=== PATIENT | female | born 1935 | race Caucasian/White ===

== ENCOUNTER 2018-03-12 13:12 | Inpatient (IN) ==
--- NOTE | 2018-03-12 14:14 | Diag Imaging Result Doc PS360 ---
EXAM: XRAY HIP W/PELVIS BILAT 3-4VWS - 03/12/2018 HISTORY: s/p fall TECHNIQUE: Portable bilateral hips and pelvis two views COMPARISON: None. FINDINGS: There is no fracture or dislocation identified. There are lower lumbar spine degenerative changes noted. IMPRESSION: No evidence of fracture or dislocation. Electronically signed by Sean Lagunas 03/12/2018 2:12 PM
--- NOTE | 2018-03-12 14:17 | Diag Imaging Result Doc PS360 ---
EXAM: CHEST-1 VIEW - 03/12/2018 HISTORY: chronic cough TECHNIQUE: Portable chest COMPARISON: 10/24/2017 FINDINGS: Heart size appears upper normal and stable. There is chronic infiltrate or scarring at the left base. The remainder of the lungs appear essentially clear. There is no substantial pleural effusion or pneumothorax identified. IMPRESSION: Chronic infiltrate or scarring at left base similar to prior. Electronically signed by Sean Lagunas 03/12/2018 2:14 PM
[2018-03-12 15:16] LABS: EOS# 0.01 X1000 (0.0-0.7); EOS% 0.1 % (0.0-10.0); HEMATOCRIT 30.1 % (37.0-47.0); HEMOGLOBIN 10.1 g/dL (12.0-16.0); IMM GRAN# 0.04 X1000 (0.0-0.04); IMM GRAN% 0.4 % (0.0-0.5); LYMPH% 23.5 % (20.5-51.1); MCH 28.5 PG (27-31); MCHC 33.6 g/dL (33-37); MCV 84.8 FL (81-99); MONO# 0.57 X1000 (0.11-0.59); MONO% 6.4 % (1.7-9.3); NEUT# 6.21 X1000 (1.4-6.5); NEUT% 69.6 % (42.2-75.2); PLT 248 X1000 (130-400); RBC 3.55 XMIL (4.2-5.4); RDW 14.1 % (11.5-14.5); WBC 8.93 X1000 (4.8-10.8)
[2018-03-12 15:34] LABS: ESTIMATED GFR > 60
[2018-03-12 15:36] LABS: AGAP 12; ALB/GLOB RATIO 1.7; ALBUMIN 3.8 g/dL (3.5-5.0); ALKALINE PHOSPHATASE 118 U/L (32-104); BUN 8 mg/dL (8-22); CALCIUM 8.3 mg/dL (8.8-10.2); CHLORIDE 83 mmol/L (98-107); COSMO 243; CREATININE 0.5 mg/dL (0.5-0.9); GLUCOSE 108 mg/dL (70-104); GOT 13 U/L (10-30); GPT 15 U/L (10-36); POTASSIUM 4.2 mmol/L (3.5-5.1); SODIUM 121 mmol/L (136-145); TCO2 26 mmol/L (25-35); TOTAL BILIRUBIN 0.47 mg/dL (0.20-1.00); TOTAL PROTEIN 6.1 g/dL (6.3-8.3)
--- NOTE | 2018-03-12 16:51 | PROVIDER DOCUMENTATION ---
This chart was entered by Marlyn Ivy Scribe, acting as scribe for Caity Mills MD. HPI-General Adult - General Chief Complaint: Fall Stated Complaint: fall, mid back pain Time Seen by Provider: 03/12/18 13:31 Source: patient Allergies/Adverse Reactions: Patient Allergies Allergy/AdvReac Type Severity Reaction Status Date / Time Sulfa (Sulfonamide Allergy NAUSEA/VOMI Verified 08/09/14 14:26 Antibiotics) TING Home Medications: Home Medication List Medication Instructions Recorded Confirmed Last Taken Type Albuterol Sulfate 2.5 mg IH BID 08/09/14 08/09/14 08/09/14 History Amlodipine Besylate 5 mg PO DAILY 08/09/14 08/09/14 08/09/14 History Aspirin 81 mg PO DAILY 08/09/14 08/09/14 08/09/14 History Calcium Carbonate/Vitamin D3 1 each PO DAILY 08/09/14 08/09/14 08/09/14 History [Calcium 600 + D Tablet] Cholecalciferol (Vitamin D3) 400 unit PO DAILY 08/09/14 08/09/14 08/09/14 History [Vitamin D] Docusate Sodium [Colace] 100 mg PO 4XDAY #20 capsule 08/09/14 Unknown Rx Hydrochlorothiazide 12.5 mg PO DAILY 08/09/14 08/09/14 08/09/14 History Lorazepam 1 mg PO DAILY 08/09/14 08/09/14 08/06/14 History Losartan [Cozaar] 100 mg PO DAILY 08/09/14 08/09/14 08/09/14 History Magnesium Citrate [Citrate of 300 ml PO ONCE #1 bottle 08/09/14 Unknown Rx Magnesia] Meloxicam 15 mg PO DAILY 08/09/14 08/09/14 08/09/14 History Nitrofurantoin Bonner/Macrocryst 100 mg PO BID #9 capsule 08/09/14 Unknown Rx [Macrobid] Ondansetron [Zofran] 4 mg PO Q6H PRN PRN #10 tablet 08/09/14 Unknown Rx Pantoprazole [Protonix] 40 mg PO DAILY@0700 08/09/14 08/09/14 08/08/14 History Potassium 595 mg PO DAILY 08/09/14 08/09/14 08/09/14 History - History of Present Illness -Gen Adult Nature of Presenting Problems: 82yof c/o head pain, back pain, weakness, and multiple falls in the last week. She additionally reports weight loss, decreased appetite, and cough for 3 months. She reports she slipped on her bed Tuesday and hit her head and back. She denies loc. She reports she fell this afternoon. She reports she cannot stand up. She denies fever, chills, nausea, vomiting, diarrhea, cp, and sob. The patient's son is at bedside. Location of Pain/Injury: reports: head, back, generalized (weakness) Pain Radiation: reports: no radiation Quality of Pain: reports: aching, other ("weakness") Severity: reports: mild Onset/Duration: reports: this afternoon, other (3 months) Timing: reports: still present, intermittent, constant Context/Activities at Onset: reports: none Modifying Factors: improves with: nothing Associated Symptoms: denies: chest pain, fever/chills, nausea, shortness of breath, vomiting Similar Symptoms Previously?: No Recently seen or treated by another doctor?: No Review of Systems - Adult - REVIEW OF SYSTEMS - ADULT Constitutional: denies: chills, fever Eyes: denies: discharge, dry eyes Ears, Nose, Mouth & Throat: denies: ear discharge, ear pain Cardiovascular: denies: chest pain, palpitations Respiratory: denies: cough, shortness of breath Gastrointestinal: denies: abdominal pain, diarrhea, nausea, vomiting Genitourinary: denies: dysuria, hematuria Musculoskeletal: reports: back pain, other (generalized weakness). denies: neck pain Integumentary: reports: no symptoms reported Neurological: reports: other (head pain). denies: dizziness/vertigo Psychiatric: reports: no symptoms reported Endocrine: reports: no symptoms reported Hematologic/Lymphatic: reports: no symptoms reported Allergic/Immunologic: reports: no symptoms reported All Other Systems: Reviewed and Negative Past History - Adult - PAST MEDICAL HISTORY-ADULT Review of Records: reports: Old Records Reviewed, Nursing Assessment Review, Medications Reviewed Major Childhood Illnesses: reports: denies history Cardiovascular: reports: HTN Respiratory: reports: denies history Gastrointestinal: reports: GERD Obstetrical/Gynecological: reports: denies history Genitourinary: reports: denies history Musculoskeletal: reports: denies history Neurological: reports: denies history Endocrine/Immune: reports: denies history Other Conditions: reports: denies history - PRIOR SURGERIES/PROCEDURES Surgical/Procedure History: reports: hysterectomy - IMMUNIZATION STATUS Childhood Immunizations: See Nurse Assessment Flu Vaccine: See Nurse Assessment - FAMILY HISTORY Family History: reviewed, not pertinent - SOCIAL HISTORY Smoking: other (former) Substance Use: denies Living Situation: family Physical Exam-General - PHYSICAL EXAM-ADULT Initial Vital Signs Reviewed: Yes - CONSTITUTIONAL General Appearance: alert, no apparent distress - EYES Eyes: PERRL/EOMI, pink conjunctivae - HEAD, EARS, NOSE, MOUTH & THROAT HENMT: other (Head exam: mild tenderness to occipital area, no active bleeding, no hematoma, no Calix's sign, no ecchymosis, no swelling. Pt has swollen throat ) - NECK Neck: non-tender, supple - RESPIRATORY Respiratory: lungs clear, normal breath sounds - CARDIOVASCULAR Cardiovascular: regular rate, rhythm, no murmur - GASTROINTESTINAL (ABDOMEN) Abdominal Exam: non tender, soft - MUSCULOSKELETAL Extremity: normal range of motion, non-tender, normal inspection, no pedal edema - SKIN Integumentary: normal color, warm/dry. negative: ecchymosis, erythema, swelling - NEUROLOGIC Neurologic: grossly normal, no motor/sensory deficits - PSYCHIATRIC Psych/Mental Status: normal mood/affect, normal thought content, normal thought process, oriented x 3 Progress - PLAN OF CARE/RESULTS Progress/Plan/Lab Results: Vital Signs - 8 hr 03/12/18 13:22 Temperature 98.2 F Pulse Rate 79 Respiratory Rate 18 Blood Pressure 138/51 O2 Sat by Pulse Oximetry 99 Orders Category Date Time Status XRAY HIP W/PELVIS BILAT 3-4VWS [RAD] Stat Exams 03/12/18 13:54 Completed cxr [CHEST-1 VIEW] [RAD] Stat Exams 03/12/18 13:52 Completed CBC WITH ELECTRONIC DIFF [HEME] Stat Lab 03/12/18 13:55 Uncollected CMP [COMPREHENSIVE METABOLIC PANEL] [CHEM] Stat Lab 03/12/18 13:55 Uncollected Result Diagrams: 03/12/18 14:48 03/12/18 14:48 - XRAY 1 XRAY Study: Chest Impression: Abnormal (FINDINGS: Heart size appears upper normal and stable. There is chronic infiltrate or scarring at the left base. The remainder of the lungs appear essentially clear. There is no substantial pleural effusion or pneumothorax identified. IMPRESSION: Chronic infiltrate or scarring at left base similar to prior.) 2 XRAY Study: Pelvis, Hip Impression: Abnormal ( FINDINGS: There is no fracture or dislocation identified. There are lower lumbar spine degenerative changes noted. IMPRESSION: No evidence of fracture or dislocation.) - CONSULTS/PCP/HOSPITALIST Notification #1 *Consult/PCP/Hospitalist*: dr. Brower Time Discussed: 16:50 Consult Disposition: Admit Departure - Departure Date of Disposition Decision: 03/12/18 Time of Disposition Decision: 16:50 DIAGNOSIS: Hyponatremia, Status post fall, Weakness Disposition: ADMITTED INPATIENT 09 Certified Medical Emergency: Emergent Condition: Stable Additional Freetext Instructions: ED Follow Up Instructions: You have been treated by a care provider in the Emergency Department. These instructions are being provided to you so you can have an understanding of how to care for yourself upon discharge. Upon discharge from the Emergency Department, you are responsible for making arrangements for follow-up care by a physician of your choice. Take all prescribed medications as directed. Return to the Emergency Department immediately for any new or worsening symptoms. You may call the Physician Referral phone number at [phone] to obtain a list of Physicians who are taking new patients. Referrals and Follow-Ups: Susan Brower MD [Primary Care Provider] - Discharge Education: Fall Prevention in the Home, [id number] - Critical Care Note This patient required my direct & personal management of CC.: No Attestation - Physician/ BEENA Attestation Patient care was provided by Advanced Practice Provider:: No The physician spent face to face time with patient:: Yes Advanced Practice Provider documentation review:: Supervising physician onsite and consulted in the evaluation and care of this patient. The physician did have a face to face encounter with the patient. This chart was documented by the indicated scribe, (Marlyn Ivy, Adriana) and accurately reflects the services I performed and decisions made by me, Caity Mills MD, as attested by the provider's signature.
[2018-03-12] MEDS: NS 1,000 ML IV SCH (18:59)
[2018-03-12] MEDS: LOVENOX SUBQ SCH (18:59)
[2018-03-12] MEDS: ROCEPHIN 1 GM in NS 50 ML IV SCH (18:59)
[2018-03-12] MEDS ORDERED: SODIUM CHLORIDE 0.9% INJ PRN (18:59)
[2018-03-12] MEDS ORDERED: SAMSCA PO ONE (18:59)
[2018-03-12] MEDS ORDERED: PHENERGAN IV PRN (18:59)
[2018-03-12] MEDS: DUONEB (A & A) INH SCH (21:10)
[2018-03-13] MEDS: DUONEB (A & A) INH SCH ×4 (03:10→22:00)
[2018-03-13] MEDS ORDERED: CORTROSYN IV ONE (05:30)
[2018-03-13 07:04] LABS: AGAP 12; BUN 7 mg/dL (8-22); CALCIUM 8.7 mg/dL (8.8-10.2); CHLORIDE 94 mmol/L (98-107); COSMO 260; CREATININE 0.5 mg/dL (0.5-0.9); ESTIMATED GFR > 60; GLUCOSE 129 mg/dL (70-104); POTASSIUM 3.8 mmol/L (3.5-5.1); SODIUM 130 mmol/L (136-145); TCO2 24 mmol/L (25-35)
--- NOTE | 2018-03-13 08:14 | PROGRESS NOTE ---
DATE: 03/13/2018 SUBJECTIVE: Ms. Logan has a history of recurrent head and neck cancer, and is currently undergoing chemotherapy and adjuvant radiation therapy. 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 She presented to the ER with general lethargy, malaise, and weakness. On admission, her serum sodium was 121. I spoke to Dr. Foster and she had a serum sodium of 131 earlier in the week. 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 We also performed a Cortrosyn stimulation test, which was abnormal. She continues with a persistent cough which is at times productive of yellowish sputum. She has some occasional wheezing with forced expiration. She does have bronchiectasis. A chest x-ray demonstrated chronic fibrotic changes. Her blood pressure is stable. OBJECTIVE: Vital Signs: Today, her blood pressure was 146/72. Temperature 97.8 degrees, pulse 85, respirations 19. Cardiovascular: Regular rate and rhythm. Lungs: Occasional end-expiratory wheezing with forced expiration. Abdomen: Soft and nontender with active bowel sounds. Extremities: Without edema. Skin: No palpable purpura. ASSESSMENT AND PLAN: 1. Hyponatremia, present on admission. 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 Her serum sodium has increased from 121 to 130. I will not re-dose was Samsca this morning. I will recheck a BMP in the morning. 2. Adrenal insufficiency. I will begin Cortef 10 mg b.i.d. 3. Acute exacerbation of the underlying bronchiectasis. I will treat her with levofloxacin 500 mg daily and continue DuoNeb nebulizer treatments. 4. General debility. She has fallen several times and is unable to walk. X-rays of the pelvis and hips yesterday were normal. I am concerned about the possibility of insufficiency fractures of the pelvis, which would not necessarily be picked up on a plain film. I will obtain a CT scan of the abdomen and pelvis to look for fractures today. cc: Rupert Brower MD
[2018-03-13] MEDS: NS 1,000 ML IV SCH ×2 (09:38→23:19)
[2018-03-13] MEDS: ASPIRIN PO SCH (09:38)
--- NOTE | 2018-03-13 09:38 | HISTORY AND PHYSICAL ---
HISTORY OF PRESENT ILLNESS: Ms. Jyoti Logan is an 82-year-old lady with a history of recurrent head and neck cancer, currently undergoing chemotherapy and adjuvant radiation, essential hypertension, gastroesophageal reflux disease, overactive bladder, and bronchiectasis, who is well known to me. Her family reports that she has had a persistent nonproductive cough, which at times is productive of yellowish sputum, pleuritic chest pain, and increasing shortness of breath. She does have a history of bronchiectasis. Her chest x-ray showed fibrotic changes with a possible infiltrate in the left lower lung field. She is also very weak. She is unable to make transfers from her bed to her chair without assistance. She has fallen several times over the past several days. Laboratory studies demonstrated a serum sodium of 121. I spoke to Dr. Foster, who had ordered blood work earlier in the week, and at that time her serum sodium was 131. She has been more lethargic, but has had no obvious seizure activity. Dr. Foster also mentioned that her cortisol level was low. She was with complaint of increasing reflux, sour brash and nausea with meals. She has a lot of pain with swallowing and chewing. She has had a previous EGD, which demonstrated no strictures or esophagitis. PAST MEDICAL HISTORY: As above. PAST SURGICAL HISTORY: Hysterectomy with a unilateral oophorectomy, bilateral tympanostomy tubes. ALLERGIES: Sulfa drugs. FAMILY HISTORY: Her father had hypertension and of a ruptured abdominal aortic aneurysm at age 78. Her mother had hypertension and diabetes and at the age of 91. SOCIAL HISTORY: She is a . She is a former smoker. She does not consume alcoholic beverages. MEDICATIONS: Lasix 20 mg daily, losartan 100 mg daily, pantoprazole 40 mg daily, Paxil 10 mg daily, Lorazepam 1 mg at night, ferrous sulfate 325 mg daily, amlodipine 10 mg daily. REVIEW OF SYSTEMS: Weight: She has lost weight. HEENT: She wears glasses. Cardiovascular: No chest pain, palpitations, or anginal equivalents. Pulmonary: No shortness of breath, PND, orthopnea. Gastrointestinal: See HPI. Endocrine: No polyuria, no polydipsia. No cold or heat intolerance. Skin: No easy bruisability. Genitourinary: No leakage of urine with coughing or laughing. Neurologic: No migraines or seizures. PHYSICAL EXAMINATION: GENERAL: This is a chronically ill-appearing, 82-year-old lady in no apparent distress. VITAL SIGNS: She is afebrile. Her vital signs are stable. HEENT: Fundi with arteriolar wall thickening. Pupils equal, round, reactive to light. Extraocular eye movements intact. TMs without bullae. NECK: Supple. No masses, JVD or bruits CARDIOVASCULAR: Regular rate and rhythm. LUNGS: Scattered end expiratory wheezing with forced expiration with faint crackles in the left base. ABDOMEN: Soft, nontender, with active bowel sounds. No hepatosplenomegaly. No abdominal bruits. EXTREMITIES: Without edema. NEUROLOGIC: She is oriented to name, place, and time. Cranial nerves 2 through 12 intact grossly. She has good strength in the upper and lower extremities. Tongue is midline. ASSESSMENT AND PLAN: 1. Hyponatremia. 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 We will check urine and serum osmolality, as well as urine sodium. I will give her a dose of Samsca 30 mg x1 dose and recheck a basic metabolic panel in the morning. 2. Low cortisol. A low cortisol level can cause generalized fatigued and malaise. I will arrange for a Cortrosyn stimulation test in the morning. 3. Acute exacerbation of underlying bronchiectasis. I will treat her with Levaquin 500 mg daily and DuoNeb nebulizer treatments. 4. Hypertension. Her blood pressure is stable. We will continue her current regimen of medications. Given her comorbid conditions and clinical presentation, I believe admission to the hospital is necessary. Hyponatremia will predispose her to seizure activity. I anticipate that she will be in the hospital for at least 2 midnights, and I will therefore place her in inpatient status. We will begin Lovenox 40 mg subcutaneously daily for deep vein thrombosis prophylaxis. cc: Rupert Brower MD
[2018-03-13] MEDS: ATIVAN PO SCH (09:39)
[2018-03-13] MEDS: CORTEF PO SCH ×2 (09:40→23:20)
[2018-03-13] MEDS: CALTRATE PLUS TABLET PO SCH (09:40)
[2018-03-13] MEDS: COZAAR PO SCH (09:41)
[2018-03-13] MEDS: NORVASC PO SCH (09:41)
[2018-03-13] MEDS: VITAMIN D PO SCH (09:42)
[2018-03-13] MEDS: LEVAQUIN PO SCH (09:48)
--- NOTE | 2018-03-13 09:56 | Diag Imaging Result Doc PS360 ---
EXAM: CT ABDOMEN/PELVIS W/WO CONTRAS 03/13/2018 HISTORY: pelvic pain following fall, r o insufficiemncy fra TECHNIQUE: This exam was performed using automated exposure control, adjustment of mA or kV according to patient size, and/or use of iterative reconstruction technique. COMMENT: There is some interstitial opacity in the subpleural zones of both lung bases. There is opacity in the inferior right middle lobe associated with some bronchiectasis. These findings were also present at the time the previous study of 08/24/2011 and may be related to interstitial fibrosis. There is perinephric stranding bilaterally. There is no evidence of hydronephrosis or nephrolithiasis. There are no apparent gallstones. There is cardiomegaly with left ventricular enlargement. The aorta is not distended. The mesenteric and renal arteries are patent. There are granulomata in the spleen. The spleen is not enlarged. The liver is unremarkable. There are multiple cortical cysts in both kidneys. The appendix is normal in caliber. There is no evidence of bowel obstruction. Pelvis: There is diverticulosis in the distal descending and sigmoid colon without evidence of diverticulitis. The urinary bladder is not distended. There has been hysterectomy. There are no masses. The bony pelvis appears to be intact. There is some degenerative change in the symphysis pubis. There are degenerative disc changes in the lumbar spine and there is apparent mild spinal stenosis at the L4-5 level. IMPRESSION: Possible chronic interstitial lung disease. No evidence of acute intra-abdominal or pelvic disease. Electronically signed by Luis Manuel Meraz 03/13/2018 9:53 AM
[2018-03-13] MEDS: MYCOSTATIN SUSP PO SCH ×4 (11:57→22:59)
[2018-03-13] MEDS: ROCEPHIN 1 GM in NS 50 ML IV SCH (18:47)
[2018-03-13] MEDS: LOVENOX SUBQ SCH (18:47)
[2018-03-14] MEDS: DUONEB (A & A) INH SCH ×4 (03:55→21:02)
[2018-03-14 07:24] LABS: EOS# 0.04 X1000 (0.0-0.7); EOS% 0.7 % (0.0-10.0); HEMATOCRIT 26.9 % (37.0-47.0); HEMOGLOBIN 8.6 g/dL (12.0-16.0); IMM GRAN# 0.02 X1000 (0.0-0.04); IMM GRAN% 0.4 % (0.0-0.5); LYMPH# 1.83 X1000 (1.2-3.4); LYMPH% 32.1 % (20.5-51.1); MCH 28.3 PG (27-31); MCV 88.5 FL (81-99); MONO# 0.75 X1000 (0.11-0.59); MONO% 13.2 % (1.7-9.3); NEUT# 3.06 X1000 (1.4-6.5); NEUT% 53.6 % (42.2-75.2); PLT 231 X1000 (130-400); RBC 3.04 XMIL (4.2-5.4)
[2018-03-14 07:43] LABS: AGAP 10; BUN 5 mg/dL (8-22); CALCIUM 8.4 mg/dL (8.8-10.2); CHLORIDE 100 mmol/L (98-107); COSMO 266; CREATININE 0.5 mg/dL (0.5-0.9); ESTIMATED GFR > 60; GLUCOSE 112 mg/dL (70-104); POTASSIUM 3.8 mmol/L (3.5-5.1); SODIUM 134 mmol/L (136-145); TCO2 24 mmol/L (25-35)
[2018-03-14] MEDS: ATIVAN PO SCH (08:28)
[2018-03-14] MEDS: LEVAQUIN PO SCH (08:28)
[2018-03-14] MEDS: NORVASC PO SCH (08:28)
[2018-03-14] MEDS: COZAAR PO SCH (08:28)
[2018-03-14] MEDS: CORTEF PO SCH ×2 (08:28→20:23)
[2018-03-14] MEDS: ASPIRIN PO SCH (08:29)
[2018-03-14] MEDS: VITAMIN D PO SCH (08:30)
--- NOTE | 2018-03-14 08:52 | PROGRESS NOTE ---
DATE: 03/14/2018 SUBJECTIVE: Mrs. Logan was admitted to [facility] with hyponatremia. 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 She has been given a one time dose of Samsca. Her serum sodium was 121 on admission. Her serum sodium was 134 this morning. Blood pressure is generally stable. Systolic blood pressures have been in the 140s and 150s, where as her diastolic blood pressures have been in the 70s and 80s. She also had an acute exacerbation of her underlying bronchiectasis. She continues with a cough, but the cough is largely nonproductive. Initially, the cough was productive of yellowish sputum. She continues with dysphagia to solids. She had a normal EGD 2 months ago. OBJECTIVE: Temperature 98.1, pulse 79, respirations 20, BP 157/43. CV: Regular rate and rhythm. Lungs: Faint crackles in the bases bilaterally. Abdomen soft, nontender, with active bowel sounds. ASSESSMENT AND PLAN: 1. Acute exacerbation of underlying bronchiectasis. We will continue oral Levaquin, supplemental O2, and DuoNeb nebulizer treatments. I will recheck a portable chest x-ray today. 2. Hyponatremia secondary to SIADH. We will continue to monitor her serum sodium. As her serum sodium has normalized to 134, I do not believe that she needs additional Samsca at this time. 3. Dysphagia. She had a normal EGD 2 months ago. We will arrange for a modified barium swallow. cc: Rupert Brower MD
--- NOTE | 2018-03-14 08:59 | Diag Imaging Result Doc PS360 ---
CHEST-PORTABLE - 03/14/2018 INDICATION: BRONCHIECTASIS COMPARISON: 03/12/2018 FINDINGS: Stable cardiomegaly. Stable hazy infiltrate in the left lung base mainly in the left lower lobe. There is probably near complete collapse of the right middle lobe. No pneumothorax or large pleural effusion. IMPRESSION: Essentially complete collapse of the right middle lobe. Stable hazy infiltrate in the right lung base. Stable cardiomegaly. Electronically signed by Willy Krishnamurthy 03/14/2018 8:57 AM
[2018-03-14] MEDS: MYCOSTATIN SUSP PO SCH ×4 (10:56→22:11)
[2018-03-14] MEDS: CALTRATE PLUS TABLET PO SCH (10:58)
--- NOTE | 2018-03-14 11:46 | Diag Imaging Result Doc PS360 ---
EXAM: BA SWALLOW W/VIDEO SPEECH THER INDICATION: DYSPHAGIA TECHNIQUE: COMPARISON: Full barium swallow dated 11/22/2017 FINDINGS: Upon swallowing the thin liquid barium, there was penetration but did not extend below the vocal folds. No libby aspiration was appreciated. The cricopharyngeus spasm seen on the previous standard barium esophagram was not appreciated on this study. Limited views of the lower esophagus are grossly unremarkable. IMPRESSION: 1.Penetration of thin liquid barium upon swallowing but no libby aspiration is appreciated. 2.Please see speech pathology report for full details. Electronically signed by Angel Díaz 03/14/2018 11:44 AM
[2018-03-14] MEDS: NS 1,000 ML IV SCH ×2 (14:57→15:10)
[2018-03-14] MEDS: ZOSYN 3.375 GM in NS 50 ML IV SCH ×2 (15:01→20:23)
[2018-03-14] MEDS: ROCEPHIN 1 GM in NS 50 ML IV SCH (18:23)
[2018-03-14] MEDS: LOVENOX SUBQ SCH (18:23)
--- NOTE | 2018-03-14 20:38 | PULMONOLOGY CONSULTATION ---
DATE: 03/14/2018 REQUESTING PHYSICIAN: Dr. Luis Alfredo Brower. REASON FOR CONSULTATION: Collapse of the right middle lobe. HISTORY OF PRESENT ILLNESS: Ms Logan is an 82-year-old white female with a 30 pack-year history for tobacco who is followed in my clinic for bronchiectasis and scarring at the left lung base. The patient developed swallowing difficulty and was evaluated by ENT in [place] and she was referred to Dr. Tellez at [facility]. 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 Biopsies revealed squamous cell carcinoma. The patient has been initiated on concurrent chemotherapy. She is currently in the middle of radiation treatments. She developed significant weakness and presented to the emergency room 2 days ago. She was found to be significantly hyponatremic. The patient underwent a modified barium swallow yesterday which revealed penetration of thin liquid upon swallowing, but no overt aspiration. Chest x-ray today revealed collapse/atelectasis of the right middle lobe. The patient reports she is having some difficulty with swallowing. Her voice is extremely course/hoarse compared to her prior visit in my office. OBJECTIVE: The patient has been afebrile for the last 24 hours. Blood pressure 157/43, heart rate 71, respiratory rate 18, oxygen saturation 92%. HEENT: Pupils are equal, reactive. Oropharynx is clear. Neck: Is supple. Chest: Reveals diminished breath sounds right base but breath sounds are present. Cardiac: S1-S2. Abdomen: Soft and without hepatosplenomegaly. Extremities: Without edema. LABORATORIES: CT scan of the abdomen and pelvis reveals some increased interstitial markings in the lung bases which have been present for several years. No overt collapse on CT scan 03/13/2018. Chest x-ray today does reveal atelectasis of the right middle lobe. Sodium 139 , potassium 3.8, chloride 100, bicarbonate 24, BUN 5, creatinine 0.5. White blood count 5.7, hemoglobin 8.6, platelet count 231,000. IMPRESSION: 82-year-old with atelectasis, exacerbation of bronchiectasis, hoarseness, hyponatremia, with dysphagia while undergoing radiation therapy. The patient currently is doing marginal with swallowing but if has progressive difficulty she might benefit from a percutaneous endoscopic gastrostomy tube placement while she is completing her radiation treatments. RECOMMENDATIONS: 1. Agree with broad-spectrum antibiotics. Will simplify regimen and discontinue ceftriaxone since she is on piperacillin and Levaquin. 2. Encourage patient to use incentive spirometer. 3. Chest x-ray tomorrow. 4. Consider PEG tube pending clinical course. This was briefly discussed with the patient. cc: MD Rupert Ovalle MD [facility] CHIL[facility]'S HOSPITALFernandez
[2018-03-15] MEDS: NS 1,000 ML IV SCH (00:43)
[2018-03-15] MEDS ORDERED: LASIX IV ONE ×2 (02:34→08:34)
[2018-03-15] MEDS: ZOSYN 3.375 GM in NS 50 ML IV SCH ×4 (03:07→21:02)
[2018-03-15] MEDS: DUONEB (A & A) INH SCH ×4 (03:15→21:05)
[2018-03-15] MEDS: PROTONIX PO SCH (06:20)
[2018-03-15 06:57] LABS: AGAP 14; BUN 7 mg/dL (8-22); CALCIUM 9.1 mg/dL (8.8-10.2); CHLORIDE 94 mmol/L (98-107); COSMO 266; CREATININE 0.7 mg/dL (0.5-0.9); ESTIMATED GFR > 60; GLUCOSE 137 mg/dL (70-104); POTASSIUM 3.7 mmol/L (3.5-5.1); SODIUM 133 mmol/L (136-145); TCO2 25 mmol/L (25-35)
--- NOTE | 2018-03-15 07:53 | Diag Imaging Result Doc PS360 ---
EXAM: CHEST-2 VIEWS 03/15/2018 HISTORY: abnormal exam TECHNIQUE: PA and lateral chest COMMENT: There is diffuse alveolar and interstitial opacity primarily posteriorly in both lower lobes and adjacent upper lobes. There is opacification and obscuration over the left base of the left heart border and diaphragm. This is worse than on 10/24/2017. IMPRESSION: Pulmonary edema and/or pneumonia. Electronically signed by Luis Manuel Meraz 03/15/2018 7:52 AM
[2018-03-15] MEDS ORDERED: SALINE LOCK IV FLUID XX ONE (08:39)
--- NOTE | 2018-03-15 08:56 | PROGRESS NOTE ---
DATE: 03/15/2018 SUBJECTIVE: Ms. Logan has a history of bronchiectasis. She continues with a persistent cough productive of yellowish sputum, and shortness of breath. Chest x-ray showed collapse of the right middle lobe. She is on broad-spectrum antibiotics, including Zosyn and Levaquin. Her chest x-ray this morning looked worse. There is opacification of the left base of the left heart border and diaphragm, and diffuse alveolar interstitial markings bilaterally suggestive of pulmonary edema. O2 saturations dropped to 84% on room air at 1:29 this morning. Her saturations are running 93% to 98% on a 100% non-rebreather. Serum sodium is good at 133. OBJECTIVE: Vital Signs: Her blood pressure is stable. Systolic blood pressures are in the 130s and 140s whereas her diastolic blood pressures are in the 50s and 60s. Temperature 99.8 degrees, pulse 92, respiratory rate 18, blood pressure 146/54. Cardiovascular: Regular rate and rhythm. Lungs: Diminished breath sounds in the bases bilaterally. Abdomen: Soft and nontender with active bowel sounds. ASSESSMENT AND PLAN: 1. Acute respiratory failure with hypoxia secondary to acute exacerbation of bronchiectasis. We will continue supplemental O2, incentive spirometry, DuoNeb nebulizer treatments, and broad- spectrum antibiotics, including Zosyn and Levaquin. I appreciate Dr. Cool's assistance with the care and management of Ms. Logan. She did have a modified barium swallow, which showed no libby aspiration. 2. Hyponatremia secondary to syndrome of inappropriate antidiuretic hormone. 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 We will continue salt and fluid restrictions, and dose her with Samsca as indicated. cc: Rupert Brower MD
[2018-03-15] MEDS ORDERED: CALTRATE 600 + D PO SCH (09:30)
[2018-03-15] MEDS: COZAAR PO SCH (09:36)
[2018-03-15] MEDS: LEVAQUIN PO SCH (09:36)
[2018-03-15] MEDS: NORVASC PO SCH (09:36)
[2018-03-15] MEDS: ASPIRIN PO SCH (09:36)
[2018-03-15] MEDS: ATIVAN PO SCH (09:36)
[2018-03-15] MEDS: CORTEF PO SCH ×2 (09:37→21:02)
[2018-03-15] MEDS: MYCOSTATIN SUSP PO SCH ×4 (09:47→21:01)
[2018-03-15] MEDS: CLINIMIX E 4.25%-5% SOLUTION 1,000 ML IV SCH (11:09)
[2018-03-15 12:45] LABS: HEMATOCRIT 29.6 % (37.0-47.0); HEMOGLOBIN 9.7 g/dL (12.0-16.0)
[2018-03-15 13:37] LABS: ALBUMIN 3.2 g/dL (3.5-5.0); PREALBUMIN 12.6 mg/dL (20-40)
[2018-03-15] MEDS: VITAMIN D PO SCH (13:53)
[2018-03-15] MEDS: LOVENOX SUBQ SCH (19:01)
[2018-03-16] MEDS ORDERED: LASIX IV ONE (00:06)
[2018-03-16] MEDS: DUONEB (A & A) INH SCH ×4 (03:20→21:22)
--- NOTE | 2018-03-16 03:36 | PULMONOLOGY PROGRESS NOTE ---
DATE: 03/15/2018 INTERIM HISTORY: The patient had an abrupt increase in oxygen requirements this morning from room air to a nonrebreather. The patient was evaluated earlier this morning and chest x-ray revealed new diffuse bilateral pulmonary infiltrates. The patient was made NPO and was initiated on Clinimix. The patient was re-evaluated around 7:30 and her oxygen requirements had decreased to 50%. PHYSICAL EXAMINATION: General: Reveals a well-developed, well-nourished, white female, in no distress. HEENT: Pupils are equal and reactive. Oropharynx is clear. Neck: Supple. Chest: Reveals crackles, predominantly in the lung bases. Cardiac Examination: S1- S2. Abdomen: Soft. Extremities: Without edema. LABORATORIES: Sodium 133, potassium 3.7, chloride 94, bicarbonate 25, BUN 7, creatinine 0.7. Chest x-ray with new bilateral infiltrates. IMPRESSION: An 82-year-old with head and neck cancer undergoing radiation and chemotherapy, dysphagia, who had an abrupt change in oxygen requirements with new bilateral infiltrates. Patient has an acute aspiration pneumonia with acute hypoxemic respiratory failure. The patient has not been receiving significant amount of fluids and does not have peripheral edema. Findings are most likely due to an aspiration event. RECOMMENDATIONS: 1. Would change patient to an NPO status and initiate Clinimix pending improvement in radiographic findings. 2. We will continue to allow the patient to take ice chips for oral hygiene. 3. Wean oxygen as tolerated. 4. Overall prognosis is guarded. cc: MD Rupert Ovalle MD MTDFernandez
[2018-03-16] MEDS: ZOSYN 3.375 GM in NS 50 ML IV SCH ×4 (04:00→21:25)
[2018-03-16 06:57] LABS: HEMATOCRIT 28.6 % (37.0-47.0); HEMOGLOBIN 9.3 g/dL (12.0-16.0); IMM GRAN# 0.03 X1000 (0.0-0.04); IMM GRAN% 0.3 % (0.0-0.5); LYMPH# 2.34 X1000 (1.2-3.4); LYMPH% 26.3 % (20.5-51.1); MCH 28.4 PG (27-31); MCHC 32.5 g/dL (33-37); MCV 87.2 FL (81-99); MONO# 1.06 X1000 (0.11-0.59); MONO% 11.9 % (1.7-9.3); MPV 9.8 FL (7.4-10.4); NEUT# 5.46 X1000 (1.4-6.5); NEUT% 61.5 % (42.2-75.2); PLT 236 X1000 (130-400); RBC 3.28 XMIL (4.2-5.4); RDW 15.5 % (11.5-14.5); WBC 8.89 X1000 (4.8-10.8)
[2018-03-16 07:31] LABS: AGAP 14; ALKALINE PHOSPHATASE 83 U/L (32-104); BUN 20 mg/dL (8-22); CALCIUM 8.7 mg/dL (8.8-10.2); CHLORIDE 92 mmol/L (98-107); COSMO 271; CREATININE 0.7 mg/dL (0.5-0.9); ESTIMATED GFR > 60; GLUCOSE 133 mg/dL (70-104); GOT 22 U/L (10-30); GPT 12 U/L (10-36); MAGNESIUM 1.8 mg/dL (1.5-2.7); PHOSPHORUS 4.6 mg/dL (2.7-4.5); POTASSIUM 3.2 mmol/L (3.5-5.1); SODIUM 133 mmol/L (136-145); TCO2 27 mmol/L (25-35); TOTAL BILIRUBIN 0.33 mg/dL (0.20-1.00); TOTAL PROTEIN 5.9 g/dL (6.3-8.3)
[2018-03-16] MEDS: CLINIMIX E 4.25%-5% SOLUTION 1,000 ML IV SCH ×3 (07:46→12:05)
[2018-03-16] MEDS: PROTONIX PO SCH (07:46)
--- NOTE | 2018-03-16 08:06 | Diag Imaging Result Doc PS360 ---
EXAM: CHEST-PORTABLE - 03/16/2018 HISTORY: respiratory failure TECHNIQUE: Portable chest COMPARISON: 03/14/2018 FINDINGS: Heart size appears upper normal. There has been interval decrease in atelectasis at the medial right base. There are ill-defined bilateral infiltrates which have largely developed compared to prior. There is a possible tiny left pleural effusion. There is no pneumothorax identified. IMPRESSION: Decrease in atelectasis at medial right base. Development of ill-defined bilateral infiltrates. Pneumonia cannot be excluded. Electronically signed by Sean Lagunas 03/16/2018 8:03 AM
[2018-03-16] MEDS ORDERED: POTASSIUM CHLORIDE 40 MEQ/SWI 40 MEQ/100 ML IVPB IV ONE (08:20)
--- NOTE | 2018-03-16 09:02 | EKG Report ---
Test Performed on : 03/16/2018 01:27:55 AM Test Reason : ICU. NO EKG ORDER FOR MUSE Blood Pressure : / mmHG Vent. Rate : 111 BPM Atrial Rate : 111 BPM P-R Int : 174 ms QRS Dur : 090 ms QT Int : 328 ms P-R-T Axes : 077 041 109 degrees QTc Int : 446 ms Sinus tachycardia. Possible Left atrial enlargement Abnormal QRS-T angle, consider primary T wave abnormality Abnormal ECG No previous ECGs available Confirmed by Alin ORTIZ, Thiago Lara ([id number]) on 03/16/2018 4:48:18 PM
[2018-03-16] MEDS: LEVAQUIN 500 MG/D5W 500 MG/100 ML IVPB IV SCH (09:16)
[2018-03-16] MEDS: CATAPRES-TTS-3 TD SCH (09:16)
[2018-03-16] MEDS: CORTEF PO SCH ×2 (09:16→21:25)
[2018-03-16] MEDS: ATIVAN PO SCH (10:47)
--- NOTE | 2018-03-16 13:34 | PROGRESS NOTE ---
DATE: 03/16/2018 SUBJECTIVE: Mrs. Logan has acute respiratory failure with hypoxia secondary to aspiration pneumonia. Chest x-ray today showed reduction in the degree of atelectasis on the right and bilateral infiltrates. Her O2 saturations are ranging from 93% to 97% on 50% oxygen. Blood pressure has been stable. She denies any chest pain, palpitations, or anginal equivalents. OBJECTIVE: Vital signs: Temperature 97.5 degrees, pulse 90, respirations 20, BP 116/42. Cardiovascular: Regular rate and rhythm. Lungs: Diminished breath sounds in the bases bilaterally. Abdomen: Soft, nontender, with active bowel sounds. Extremities: Without edema. ASSESSMENT AND PLAN: 1. Acute respiratory failure with hypoxia secondary to aspiration pneumonia. She does not appear to be volume overloaded. She did have a modified barium swallow which did not demonstrate any libby aspiration, but she tends to regurgitate food when she eats. We believe that she had an aspiration event. We will try to wean her down off oxygen and continue DuoNeb nebulizer treatments, as well as broad-spectrum antibiotics, including Zosyn and Levaquin. She is an immunocompromised host. She is currently undergoing chemotherapy for recurrent head and neck cancer (squamous cell carcinoma). 2. Mild protein calorie malnutrition. We are concerned that she will have further aspiration events, and we will hold her on nothing by mouth. We certainly want to maximize her nutritional status so that she will be able to fight the infection and regain her strength. I have talked to Mrs. Logan and her son, and they are agreeable with us placing a soft nasogastric feeding tube. We will check a chest x-ray for placement. I will consult the dietitian for recommendations in terms of the tube feedings. cc: Rupert Brower MD
--- NOTE | 2018-03-16 13:50 | Diag Imaging Result Doc PS360 ---
CHEST/ABD TUBE PLACEMENT - 03/16/2018 INDICATION: NG tube placement COMPARISON: Chest x-ray from earlier today FINDINGS: There is a new weighted feeding tube in the gastric fundus in good position. IMPRESSION: Weighted feeding tube in good position in the stomach. Electronically signed by Willy Krishnamurthy 03/16/2018 1:47 PM
[2018-03-16] MEDS ORDERED: BLISTEX MEDICATED BERRY LIP BALM TOP ONE (17:09)
[2018-03-16] MEDS: LOVENOX SUBQ SCH (19:06)
--- NOTE | 2018-03-16 21:08 | PULMONOLOGY PROGRESS NOTE ---
DATE: 03/16/2018 SUBJECTIVE: Patient reports she feels a little bit better. Her dyspnea is slightly less severe. She has a slightly wet cough. OBJECTIVE: Vital signs: Afebrile for the last 24 hours, blood pressure 116/42, heart rate 90, respiratory rate 20, oxygen saturation 94% on non-rebreather. HEENT: Pupils are equal and reactive. Oropharynx is clear but dry. Neck: Supple. Chest: Occasional rhonchi bilaterally. Cardiac: S1 and S2. Abdomen: Soft. Extremities: Without edema. DIAGNOSTIC STUDIES: Chest x-ray reveals bilateral infiltrates which appear similar to yesterday's film. IMPRESSION: An 82-year-old with: 1. Head and neck cancer, undergoing radiation and chemotherapy. 2. Dysphagia. 3. Aspiration pneumonia. 4. Acute hypoxemic respiratory failure. The patient has been made n.p.o. The patient continues to have a hoarse voice. The patient was discussed with Dr. Brower, and he suggested placing a Dobhoff feeding tube. I believe this would be an excellent plan. RECOMMENDATIONS: 1. Dobhoff feeding tube. 2. Continue antibiotics for aspiration pneumonia. 3. Continue oxygen for respiratory failure. 4. Overall prognosis is guarded. cc: MD Rupert Ovalle MD
[2018-03-17] MEDS: DUONEB (A & A) INH SCH ×4 (02:59→21:02)
[2018-03-17] MEDS: CLINIMIX E 4.25%-5% SOLUTION 1,000 ML IV SCH ×2 (04:00→14:46)
[2018-03-17] MEDS: ZOSYN 3.375 GM in NS 50 ML IV SCH ×4 (04:00→21:50)
--- NOTE | 2018-03-17 06:46 | Diag Imaging Result Doc PS360 ---
EXAM: CHEST-PORTABLE HISTORY: respiratory failure TECHNIQUE: Portable chest single view COMPARISON: 03/16/2018 FINDINGS: A nasogastric tube overlies the esophagus and stomach. There are bilateral infiltrates. These are slightly more dense than on the prior study. There may be a tiny left pleural effusion. The heart is not enlarged. IMPRESSION: Mild worsening in the bilateral infiltrates. Electronically signed by Yonatan Franco 03/17/2018 6:43 AM
[2018-03-17 07:31] LABS: BASO# 0.01 X1000 (0.0-0.2); BASO% 0.1 % (0.0-0.8); EOS# 0.02 X1000 (0.0-0.7); EOS% 0.2 % (0.0-10.0); HEMATOCRIT 29.8 % (37.0-47.0); HEMOGLOBIN 9.5 g/dL (12.0-16.0); IMM GRAN# 0.05 X1000 (0.0-0.04); IMM GRAN% 0.5 % (0.0-0.5); LYMPH# 1.74 X1000 (1.2-3.4); LYMPH% 18.1 % (20.5-51.1); MCH 28.4 PG (27-31); MCHC 31.9 g/dL (33-37); MONO# 1.16 X1000 (0.11-0.59); MONO% 12.1 % (1.7-9.3); NEUT# 6.63 X1000 (1.4-6.5); PLT 241 X1000 (130-400); RBC 3.35 XMIL (4.2-5.4); RDW 15.9 % (11.5-14.5); WBC 9.61 X1000 (4.8-10.8)
[2018-03-17 07:54] LABS: AGAP 13; BUN 24 mg/dL (8-22); CALCIUM 9.4 mg/dL (8.8-10.2); CHLORIDE 96 mmol/L (98-107); COSMO 279; CREATININE 0.5 mg/dL (0.5-0.9); ESTIMATED GFR > 60; GLUCOSE 187 mg/dL (70-104); MAGNESIUM 2.1 mg/dL (1.5-2.7); PHOSPHORUS 2.7 mg/dL (2.7-4.5); POTASSIUM 3.6 mmol/L (3.5-5.1); SODIUM 135 mmol/L (136-145); TCO2 26 mmol/L (25-35)
[2018-03-17] MEDS: CORTEF PO SCH ×2 (08:40→21:51)
[2018-03-17] MEDS: LEVAQUIN 500 MG/D5W 500 MG/100 ML IVPB IV SCH (08:40)
[2018-03-17] MEDS: PROTONIX SCH (08:40)
[2018-03-17] MEDS: ATIVAN PO SCH (08:41)
[2018-03-17 10:05] LABS: ALLEN TEST YES; BE 5.1 mmoll (-3.0-3.0); BLOOD TYPE ARTERIAL; HCO3-(ACT) 28.9 mmoll (20.0-26.0); METHB 1.7 % (0.0-1.5); O2HB 96.1 % (95.0-99.0); PCO2(98.6) 39 mmHg (35-45); PO2(98.6) 151 mmHg (60-100); SAMPLE BLOOD; SAO2 98.9 % (95.0-100.0); THB 9.4 g/dL (11.5-17.4); pH(98.6) 7.48 (7.35-7.45)
[2018-03-17 10:07] LABS: MODALITY BI PAP
--- NOTE | 2018-03-17 12:32 | PROGRESS NOTE ---
DATE: 03/17/2018 SUBJECTIVE: Mrs. Logan has acute respiratory failure with hypoxia, secondary to aspiration pneumonia. Chest x-ray this morning demonstrates worsening bilateral infiltrates. She desaturated this morning down into the 60s and she was transitioned to BiPAP. O2 saturations are now in the 95-97 percent range. She is tolerating tube feedings. OBJECTIVE: Vital Signs: Temperature 97.9, pulse 101, respirations 20, BP 146/55. CV: Tachycardic, regular S1, S2. Lungs: Decreased breath sounds in the bases bilaterally. Abdomen: Soft, nontender, with active bowel sounds. Extremities: Trace edema. ASSESSMENT AND PLAN: 1. Acute respiratory failure with hypoxia secondary to aspiration pneumonia. She really does not have any findings suggestive of heart failure. She does not have any large pleural effusion. She does not have any significant peripheral edema. We will continue BiPAP nebulizer treatments, and broad-spectrum antibiotics including Levaquin and Zosyn. I updated her son about his mother's condition this morning. 2. Aspiration with mild protein calorie malnutrition. We will continue tube feedings. cc: Rupert Brower MD
[2018-03-17] MEDS: LOVENOX SUBQ SCH (18:05)
[2018-03-18] MEDS: ZOSYN 3.375 GM in NS 50 ML IV SCH ×4 (03:23→20:13)
[2018-03-18] MEDS: DUONEB (A & A) INH SCH ×4 (03:35→21:40)
[2018-03-18] MEDS: CLINIMIX E 4.25%-5% SOLUTION 1,000 ML IV SCH (05:11)
[2018-03-18 05:20] LABS: ALLEN TEST YES; BE 5.9 mmoll (-3.0-3.0); BLOOD TYPE ARTERIAL; HCO3-(ACT) 29.5 mmoll (20.0-26.0); METHB 0.7 % (0.0-1.5); O2HB 92.9 % (95.0-99.0); PCO2(98.6) 44 mmHg (35-45); PO2(98.6) 64 mmHg (60-100); SAMPLE BLOOD; SAO2 96.1 % (95.0-100.0); THB 9.9 g/dL (11.5-17.4); pH(98.6) 7.45 (7.35-7.45)
[2018-03-18 05:23] LABS: MODALITY BI PAP
[2018-03-18] MEDS: PROTONIX SCH (06:21)
--- NOTE | 2018-03-18 07:08 | Diag Imaging Result Doc PS360 ---
EXAM: CHEST-PORTABLE 03/18/2018 HISTORY: respiratory failure TECHNIQUE: AP portable at 0602 COMMENT: There is a feeding tube with its tip in the stomach. There is diffuse alveolar opacity bilaterally which is similar in appearance to the previous study of 03/17/2018. The inspiration is less optimal than on 03/16/2018 and the opacities are denser. IMPRESSION: Pulmonary edema/ARDS. Electronically signed by Luis Manuel Meraz 03/18/2018 7:06 AM
[2018-03-18 07:31] LABS: AGAP 11; BUN 26 mg/dL (8-22); CALCIUM 9.1 mg/dL (8.8-10.2); CHLORIDE 98 mmol/L (98-107); COSMO 284; CREATININE 0.5 mg/dL (0.5-0.9); ESTIMATED GFR > 60; GLUCOSE 165 mg/dL (70-104); MAGNESIUM 2.2 mg/dL (1.5-2.7); PHOSPHORUS 2.6 mg/dL (2.7-4.5); SODIUM 138 mmol/L (136-145); TCO2 29 mmol/L (25-35)
[2018-03-18] MEDS ORDERED: LASIX IV ONE (09:17)
[2018-03-18] MEDS: ATIVAN PO SCH (10:33)
[2018-03-18] MEDS: LEVAQUIN 500 MG/D5W 500 MG/100 ML IVPB IV SCH (10:33)
[2018-03-18] MEDS: CORTEF PO SCH ×2 (10:33→20:13)
--- NOTE | 2018-03-18 14:01 | PROGRESS NOTE ---
DATE: 03/18/2018 SUBJECTIVE: Ms. Logan has family there, she is able to talk and communicate. OBJECTIVE: Vitals: She is on BiPAP. Temperature 97.0. Pulse 98. Respirations 19. Blood pressure 139/53. HEENT: Pupils are equal and round. Lungs: Clear in all lung yanes. Cardiovascular: Regular rhythm and rate without murmur or S3. Abdomen: Soft. Skin: Warm and dry. DIAGNOSTIC DATA: Urine output 2000 mL. Chest x-ray showed some pulmonary edema, possible ARDS. ASSESSMENT AND PLAN: 1. Acute respiratory failure, hypoxemic, secondary to aspiration pneumonia. She seems to be improving, and is still on BiPAP. Large pleural effusion. Does have significant peripheral edema. Continue present measures. She is on broad-spectrum antibiotics with Levaquin and Zosyn. 2. Aspiration. 3. Protein calorie malnutrition. Looking over orders, I do not see any change. cc: MD Rupert Siddiqi MD
[2018-03-18] MEDS: LOVENOX SUBQ SCH (18:11)
[2018-03-19] MEDS: ZOSYN 3.375 GM in NS 50 ML IV SCH ×4 (03:33→20:30)
[2018-03-19] MEDS: PROTONIX SCH (03:44)
[2018-03-19] MEDS: TYLENOL PO PRN ×2 (03:44→20:30)
[2018-03-19] MEDS: DUONEB (A & A) INH SCH ×4 (03:50→20:15)
[2018-03-19 05:15] LABS: ALLEN TEST YES; BE 8.8 mmoll (-3.0-3.0); BLOOD TYPE ARTERIAL; HCO3-(ACT) 31.8 mmoll (20.0-26.0); METHB 1.7 % (0.0-1.5); O2(CT) 13.1 mL/dL (15.0-23.0); O2HB 96.3 % (95.0-99.0); PCO2(98.6) 42 mmHg (35-45); PO2(98.6) 178 mmHg (60-100); SAMPLE BLOOD; SAO2 99.1 % (95.0-100.0); THB 9.4 g/dL (11.5-17.4)
[2018-03-19 05:17] LABS: MODALITY BI PAP
--- NOTE | 2018-03-19 07:30 | Diag Imaging Result Doc PS360 ---
EXAM: CHEST-PORTABLE 03/19/2018 HISTORY: respiratory failure TECHNIQUE: AP portable at 0556 COMMENT: There is a feeding tube with its tip below the diaphragm. Compared to 03/18/2018 there has been some improvement in the overall interstitial and alveolar opacity of both lungs. IMPRESSION: Improved pulmonary edema. Electronically signed by Luis Manuel Meraz 03/19/2018 7:27 AM
[2018-03-19 07:53] LABS: AGAP 13; BUN 33 mg/dL (8-22); CALCIUM 9.5 mg/dL (8.8-10.2); CHLORIDE 99 mmol/L (98-107); COSMO 291; CREATININE 0.7 mg/dL (0.5-0.9); ESTIMATED GFR > 60; GLUCOSE 136 mg/dL (70-104); MAGNESIUM 2.1 mg/dL (1.5-2.7); POTASSIUM 3.5 mmol/L (3.5-5.1); SODIUM 141 mmol/L (136-145); TCO2 29 mmol/L (25-35)
[2018-03-19] MEDS: ATIVAN PO SCH (08:53)
[2018-03-19] MEDS: CORTEF PO SCH ×2 (08:53→20:30)
[2018-03-19] MEDS: LEVAQUIN 500 MG/D5W 500 MG/100 ML IVPB IV SCH (08:54)
--- NOTE | 2018-03-19 14:56 | PROGRESS NOTE ---
DATE: 03/19/2018 SUBJECTIVE: She is feeling better. She has had a better morning. Slept pretty well. Breathing comfortably. Temperature 98.6 degrees, pulse 79, respirations 23, blood pressure 131/42. Her urine output from yesterday appeared to be about 1600 mL. Her labs reviewed from the showed chemistries from this morning sodium 141, potassium 3.5, chloride 99, BUN 33, and creatinine 0.7. Chest x-ray this morning improved pulmonary edema. There is a feeding tube tip below the diaphragm compared to 03/18/2018 with some improvement in overall interstitial and alveolar opacities. ASSESSMENT AND PLAN: 1. Acute respiratory failure hypoxemia secondary to aspiration pneumonia. Seems to be improving. Still using BiPAP as needed. Large pleural effusion overall. Pulmonary edema is diminishing. She is on broad-spectrum antibiotics. 2. Suspect aspiration pneumonia. Continue broad-spectrum antibiotics. 3. Protein calorie malnutrition. Continue her present feeding. We will advance the tube feeding slowly. 4. Review of her medications. I do not see any change. She is on piperacillin. She is on levofloxacin. cc: MD Rupert Siddiqi MD
[2018-03-19] MEDS: LOVENOX SUBQ SCH (17:58)
[2018-03-20] MEDS: DUONEB (A & A) INH SCH ×4 (03:39→21:00)
[2018-03-20] MEDS: ZOSYN 3.375 GM in NS 50 ML IV SCH ×4 (03:51→20:50)
[2018-03-20] MEDS: TYLENOL PO PRN (03:52)
[2018-03-20] MEDS: PROTONIX SCH (03:53)
[2018-03-20 04:34] LABS: ALLEN TEST YES; BE 10.3 mmoll (-3.0-3.0); BLOOD TYPE ARTERIAL; METHB 0.2 % (0.0-1.5); O2(CT) 13.7 mL/dL (15.0-23.0); O2HB 95.9 % (95.0-99.0); PCO2(98.6) 47 mmHg (35-45); PO2(98.6) 76 mmHg (60-100); SAMPLE BLOOD; SAO2 99.4 % (95.0-100.0); THB 10.1 g/dL (11.5-17.4); pH(98.6) 7.48 (7.35-7.45)
[2018-03-20 04:41] LABS: MODALITY BI PAP
--- NOTE | 2018-03-20 07:33 | Diag Imaging Result Doc PS360 ---
EXAM: CHEST-PORTABLE HISTORY: respiratory failure TECHNIQUE: Portable chest single view COMPARISON: 03/19/2018 FINDINGS: There are bilateral infiltrates fairly similar to the prior exam. These are most pronounced in the left lung base. There is also small left pleural effusion. No cardiomegaly. A nasogastric tube overlies the esophagus and stomach. IMPRESSION: No interval improvement. Electronically signed by Yonatan Franco 03/20/2018 7:31 AM
[2018-03-20 07:47] LABS: AGAP 11; BUN 31 mg/dL (8-22); CALCIUM 9.4 mg/dL (8.8-10.2); CHLORIDE 104 mmol/L (98-107); COSMO 304; CREATININE 0.7 mg/dL (0.5-0.9); ESTIMATED GFR > 60; GLUCOSE 164 mg/dL (70-104); MAGNESIUM 2.3 mg/dL (1.5-2.7); PHOSPHORUS 2.7 mg/dL (2.7-4.5); POTASSIUM 3.3 mmol/L (3.5-5.1); SODIUM 148 mmol/L (136-145); TCO2 33 mmol/L (25-35)
[2018-03-20] MEDS ORDERED: POTASSIUM CHLORIDE 20% LIQUID NG ONE (09:00)
[2018-03-20] MEDS: ATIVAN PO SCH (09:20)
[2018-03-20] MEDS: CORTEF PO SCH ×2 (09:20→20:50)
[2018-03-20] MEDS: LEVAQUIN 500 MG/D5W 500 MG/100 ML IVPB IV SCH (09:20)
[2018-03-20] MEDS: LOVENOX SUBQ SCH (20:51)
--- NOTE | 2018-03-21 01:38 | PULMONOLOGY PROGRESS NOTE ---
DATE: 03/20/2018 SUBJECTIVE: The patient is awake, alert, and conversant. Her voice is very soft. She has a slight rattle to her cough. She has been afebrile for the last 24 hours. BP 131/45, heart rate 84, respiratory rate 16, oxygen saturation 100% on non-rebreather. OBJECTIVE: HEENT: Pupils are equal and reactive. Neck: Supple. Chest: Reveals faint crackles in the lung bases. Cardiac: S1-S2. Abdomen: Soft, with good bowel sounds. Extremities: Without edema. LABORATORIES: Sodium 148, potassium 3.3, chloride 104, bicarbonate 33, BUN 31, creatinine 0.7. Chest x-ray reveals some decreased infiltrates over the last 2 exams. IMPRESSION: An 82-year-old with head and neck cancer, undergoing radiation and chemotherapy, dysphagia, aspiration pneumonia, acute hypoxemic respiratory failure, and hypernatremia. Overall, the patient has improved since I last evaluated her last . Her chest x-ray is improved. Her oxygen saturation is currently 100%. She is without specific complaints. She does have mild hypernatremia. RECOMMENDATION: 1. Continue antibiotics for aspiration pneumonia. 2. Continue oxygen for hypoxemic respiratory failure. 3. Continue tube feeds until voice improves. 4. Increase free water and tube feeds for the mild hypernatremia. cc: MD Rupert Ovalle MD
[2018-03-21] MEDS: DUONEB (A & A) INH SCH ×4 (03:25→21:10)
[2018-03-21] MEDS: ZOSYN 3.375 GM in NS 50 ML IV SCH ×4 (04:02→20:27)
[2018-03-21] MEDS: PROTONIX SCH (06:00)
--- NOTE | 2018-03-21 07:00 | Diag Imaging Result Doc PS360 ---
EXAM: CHEST-PORTABLE 03/21/2018 HISTORY: respiratory failure TECHNIQUE: AP portable at 0558 COMMENT: There is a feeding tube with its tip in the fundus of the stomach. There is increased interstitial opacity bilaterally with some alveolar opacification of the left lower lobe. The latter has apparently improved slightly since 03/20/2018. IMPRESSION: Pulmonary edema plus minus pneumonia slightly improved. Electronically signed by Luis Manuel Meraz 03/21/2018 6:58 AM
[2018-03-21 07:22] LABS: BASO# 0.01 X1000 (0.0-0.2); BASO% 0.1 % (0.0-0.8); EOS% 1.1 % (0.0-10.0); HEMOGLOBIN 9.3 g/dL (12.0-16.0); IMM GRAN% 1.1 % (0.0-0.5); LYMPH# 1.87 X1000 (1.2-3.4); LYMPH% 21.2 % (20.5-51.1); MCH 28.5 PG (27-31); MCV 95.1 FL (81-99); MONO# 0.48 X1000 (0.11-0.59); MONO% 5.4 % (1.7-9.3); MPV 9.7 FL (7.4-10.4); NEUT# 6.28 X1000 (1.4-6.5); NEUT% 71.1 % (42.2-75.2); PLT 242 X1000 (130-400); RBC 3.26 XMIL (4.2-5.4); RDW 17.7 % (11.5-14.5); WBC 8.84 X1000 (4.8-10.8)
[2018-03-21 07:44] LABS: AGAP 11; ALB/GLOB RATIO 0.8; ALBUMIN 2.7 g/dL (3.5-5.0); ALKALINE PHOSPHATASE 234 U/L (32-104); BUN 28 mg/dL (8-22); CALCIUM 9.5 mg/dL (8.8-10.2); CHLORIDE 111 mmol/L (98-107); COSMO 311; CREATININE 0.6 mg/dL (0.5-0.9); ESTIMATED GFR > 60; GLUCOSE 176 mg/dL (70-104); GOT 44 U/L (10-30); GPT 98 U/L (10-36); MAGNESIUM 2.4 mg/dL (1.5-2.7); PHOSPHORUS 2.5 mg/dL (2.7-4.5); SODIUM 152 mmol/L (136-145); TCO2 30 mmol/L (25-35); TOTAL BILIRUBIN 0.21 mg/dL (0.20-1.00); TOTAL PROTEIN 6.1 g/dL (6.3-8.3)
--- NOTE | 2018-03-21 08:32 | PROGRESS NOTE ---
DATE: 03/20/2018 SUBJECTIVE: Ms. Logan has acute respiratory failure with hypoxia secondary to aspiration pneumonia. When I last saw her on Tuesday, she was requiring continuous BiPAP. She is now just wearing BiPAP at night. Saturations are in the mid 90s on 50% oxygen during the day. She is breathing more comfortably. Her chest x-ray demonstrated bilateral infiltrates which are more pronounced in the left base. She is tolerating tube feedings. OBJECTIVE: Vital Signs: Temperature 98.3 degrees, pulse 78, respiratory rate 16, BP 126/39. CV: Regular rate and rhythm. Lungs: Crackles in the bases bilaterally. Abdomen: Soft, nontender, with active bowel sounds. ASSESSMENT AND PLAN: 1. Acute respiratory failure with hypoxia secondary to aspiration pneumonia. Clinically, she is better. We will continue broad-spectrum antibiotics, DuoNeb nebulizer treatments, and continue to try to wean her off the BiPAP and reduce her oxygen requirements as able. 2. Mild protein calorie malnutrition. We will continue tube feedings. cc: Rupert Brower MD
[2018-03-21] MEDS: LEVAQUIN 500 MG/D5W 500 MG/100 ML IVPB IV SCH (08:33)
[2018-03-21] MEDS: CORTEF PO SCH ×2 (08:33→20:27)
[2018-03-21] MEDS: ATIVAN PO SCH (08:33)
--- NOTE | 2018-03-21 08:37 | PROGRESS NOTE ---
DATE: 03/21/2018 SUBJECTIVE: Ms. Logan has acute respiratory failure with hypoxia secondary to aspiration pneumonia. She is breathing more comfortably this morning. She used BiPAP during the night. She is on 50% oxygen. Her O2 saturations are ranging from 94% to 97%. Chest x-ray shows interval improvement in her degree of infiltrate. Her serum sodium is trending upward. Her sodium has jumped from 148 to 152. OBJECTIVE: Vital signs: Temperature 98.4 degrees, pulse 84, respiratory rate 22, BP 140/46. CV: Regular rate and rhythm. Lungs: Crackles in the bases bilaterally with improved aeration in the upper lung yanes. Abdomen: Soft, nontender, with active bowel sounds. ASSESSMENT AND PLAN: 1. Acute respiratory failure with hypoxia secondary to aspiration pneumonia. Clinically, she continues to improve. We will continue broad-spectrum antibiotics including Levaquin and Zosyn. Try to wean down on oxygen as able, and continue nebulizer treatments. 2. Mild hypernatremia. Her serum sodium has jumped from 148 to 152. We will increase the flush with water to 40 mL every 4 hours, and recheck a basic metabolic panel in the morning. cc: Rupert Brower MD
[2018-03-21] MEDS: LOVENOX SUBQ SCH (20:27)
--- NOTE | 2018-03-22 00:09 | PULMONOLOGY PROGRESS NOTE ---
DATE: 03/21/2018 SUBJECTIVE: The patient is awake, alert, and conversant, although her voice is very soft. She is currently on a nonrebreather with an oxygen saturation of 100%. It does drop into the 80s with a several minute removal. She has a weak cough effort. OBJECTIVE: Vital Signs: The patient has been afebrile for the last 24 hours. Blood pressure 145/47, heart rate 101, respiratory rate 23, oxygen saturation 100%. HEENT: Pupils are equal and reactive. Oropharynx appears dry with some white plaquing of the tongue. Neck: Is supple. Chest: Reveals faint crackles bilaterally. Cardiac: S1-S2. Abdomen: Is soft. Extremities: Without edema. LABORATORIES: Chest x-ray reveals marginal decrease in pulmonary infiltrates. Sodium 152, potassium 4.0, chloride 111, bicarbonate 30, BUN 28, creatinine 0.6. IMPRESSION: An 82-year-old with head and neck cancer undergoing treatment, dysphagia, aspiration pneumonia, acute hypoxemic respiratory failure, and hypernatremia. She has had some radiographic improvement. She remains extremely weak. Her sodium has increased despite increase in free water yesterday. RECOMMENDATION: 1. Continue antibiotics. 2. Continue oxygen. 3. Continue tube feeds until she is stronger and her voice has improved. 4. Continue free water flushes. If sodium is elevated tomorrow, will supplement with some D5W. 5. Overall prognosis is guarded. cc: MD Rupert Ovalle MD
[2018-03-22] MEDS: ZOSYN 3.375 GM in NS 50 ML IV SCH ×4 (03:13→20:16)
[2018-03-22] MEDS: DUONEB (A & A) INH SCH ×4 (03:40→21:35)
[2018-03-22] MEDS: PROTONIX SCH (06:16)
--- NOTE | 2018-03-22 07:30 | Diag Imaging Result Doc PS360 ---
EXAM: CHEST-PORTABLE HISTORY: respiratory failure TECHNIQUE: Portable chest single view COMPARISON: 03/21/2018 FINDINGS: Inspiratory effort is similar to the prior exam. It is somewhat suboptimal. A nasogastric tube overlies the esophagus and stomach. This is unchanged. There are bilateral infiltrates similar to the prior exam. No change in the small left pleural effusion and basilar atelectasis. IMPRESSION: No interval improvement. Electronically signed by Yonatan Franco 03/22/2018 7:28 AM
[2018-03-22 07:31] LABS: AGAP 11; ALB/GLOB RATIO 0.9; ALBUMIN 2.7 g/dL (3.5-5.0); ALKALINE PHOSPHATASE 193 U/L (32-104); BUN 29 mg/dL (8-22); CALCIUM 9.5 mg/dL (8.8-10.2); CHLORIDE 115 mmol/L (98-107); COSMO 317; CREATININE 0.6 mg/dL (0.5-0.9); ESTIMATED GFR > 60; GLUCOSE 171 mg/dL (70-104); GOT 47 U/L (10-30); GPT 76 U/L (10-36); MAGNESIUM 2.4 mg/dL (1.5-2.7); SODIUM 155 mmol/L (136-145); TCO2 29 mmol/L (25-35); TOTAL BILIRUBIN 0.19 mg/dL (0.20-1.00); TOTAL PROTEIN 5.8 g/dL (6.3-8.3)
[2018-03-22] MEDS: ATIVAN PO SCH (08:47)
[2018-03-22] MEDS: CORTEF PO SCH ×2 (08:48→20:16)
[2018-03-22] MEDS: LEVAQUIN 500 MG/D5W 500 MG/100 ML IVPB IV SCH (08:48)
[2018-03-22] MEDS ORDERED: D5W 1,000 ML IV SCH (09:15)
--- NOTE | 2018-03-22 14:45 | PULMONOLOGY PROGRESS NOTE ---
DATE: 03/22/2018 SUBJECTIVE: The patient is resting comfortably in her bed. Her oxygen requirements have decreased from 100% to 50% Ventimask. Her voice remains very soft. OBJECTIVE: Vital Signs: The patient has been afebrile over the last 24 hours. Blood pressure 138/57, heart rate 87, respiratory rate 25, oxygen saturation 94%. HEENT: Pupils are equal and reactive. Oropharynx appears dry. Neck: Supple. Chest: Reveals occasional rhonchi bilaterally. Cardiac: S1, S2. Abdomen: Soft. Extremities: Without edema. LABORATORIES: Chest x-ray reveals bilateral infiltrates without change. Chemistry: Sodium 155, potassium 5.0, chloride 115, BUN 29, creatinine 0.6. IMPRESSION: An 82-year-old with head and neck cancer undergoing therapy, dysphagia, aspiration pneumonia, acute hypoxemic respiratory failure, and hypernatremia. Her radiograph is stable and she has had some decrease in her oxygen requirements. She will need some free water today for her ongoing and progressive hypernatremia. PLAN: 1. Continue antibiotics. 2. Continue oxygen and wean as tolerated. 3. Continue tube feeds. 4. Free water today in the form of D5W. 5. Overall prognosis is guarded. cc: MD Rupert Ovalle MD
--- NOTE | 2018-03-22 18:08 | PROGRESS NOTE ---
DATE: 03/22/2018 SUBJECTIVE: Mrs. Logan was admitted with acute respiratory failure with hypoxia secondary to aspiration pneumonia. Chest x-ray demonstrates persistent bilateral infiltrates. She is maintaining O2 saturations of 98 to 100% on 50% Ventimask. Her serum sodium continues to trend upward. Serum sodium has jumped from 148 to 155. We did increase her free water via the PEG tube yesterday. OBJECTIVE: Vital signs: She is afebrile. BP 138/57, pulse 87, respiratory rate 24. CV: Regular rate and rhythm. Lungs: Bilateral rhonchi. Abdomen: Soft, nontender, with active bowel sounds. Extremities: Without edema. ASSESSMENT AND PLAN: 1. Acute respiratory failure with hypoxia secondary to aspiration pneumonia. We will try to wean down off oxygen. Continue broad-spectrum antibiotics and DuoNeb nebulizer treatments. 2. Mild protein calorie malnutrition. We will continue tube feedings. 3. Hypernatremia. I will give her a liter of D5W at 50 mL an hour x1 L and recheck a BMP in the morning. cc: Rupert Brower MD
[2018-03-22] MEDS: LOVENOX SUBQ SCH (20:16)
[2018-03-23] MEDS: DUONEB (A & A) INH SCH ×4 (03:45→21:55)
[2018-03-23] MEDS: ZOSYN 3.375 GM in NS 50 ML IV SCH ×4 (04:03→22:13)
[2018-03-23] MEDS: PROTONIX SCH (06:38)
--- NOTE | 2018-03-23 07:17 | Diag Imaging Result Doc PS360 ---
EXAM: CHEST-PORTABLE INDICATION: respiratory failure TECHNIQUE: One view COMPARISON: 03/22/2018 FINDINGS: The NG tube is in stable position. Bilateral diffuse infiltrates are unchanged. No new consolidation is identified. Cardiac silhouette is stable. IMPRESSION: Stable chest. Electronically signed by Angel Díaz 03/23/2018 7:15 AM
[2018-03-23 07:19] LABS: AGAP 10; BUN 24 mg/dL (8-22); CALCIUM 9.3 mg/dL (8.8-10.2); CHLORIDE 111 mmol/L (98-107); COSMO 306; CREATININE 0.6 mg/dL (0.5-0.9); ESTIMATED GFR > 60; GLUCOSE 166 mg/dL (70-104); POTASSIUM 3.9 mmol/L (3.5-5.1); SODIUM 150 mmol/L (136-145); TCO2 29 mmol/L (25-35)
[2018-03-23] MEDS: LEVAQUIN 500 MG/D5W 500 MG/100 ML IVPB IV SCH (08:11)
[2018-03-23] MEDS: ATIVAN PO SCH (08:12)
[2018-03-23] MEDS: CATAPRES-TTS-3 TD SCH (08:13)
[2018-03-23] MEDS: CORTEF PO SCH ×2 (08:25→22:14)
[2018-03-23] MEDS ORDERED: D5W 500 ML IV SCH (09:15)
--- NOTE | 2018-03-23 13:29 | PROGRESS NOTE ---
DATE: 03/23/2018 SUBJECTIVE: Mrs. Logan has acute respiratory failure with hypoxia secondary to aspiration pneumonia. She is maintaining O2 sats of 92% to 94% on 50% O2. She took her mask off this morning in order to talk to me while I was rounding. Her sats dropped to 78%. We put her mask back on and her O2 sats came up into the low 90s. She reports that she is breathing more comfortably and is not requiring as much oxygen. Her chest x-ray demonstrated diffuse bilateral infiltrates. The chest x-ray was largely unchanged. She also has a history of hypernatremia. Her serum sodium was 155 yesterday. We gave her a L of D5 W and her serum sodium had dropped to 150 this morning. OBSTETRICAL HISTORY: Temperature 97.9, pulse 74, respirations 18, BP 142/39. CV: Regular rate and rhythm. Lungs: Crackles in the bases bilaterally. Abdomen soft, nontender, with active bowel sounds. ASSESSMENT AND PLAN: 1. Acute respiratory failure with hypoxia secondary to aspiration pneumonia. Clinically, she is still requiring 50% oxygen to maintain O2 saturations in the 90s. Her chest x-ray is largely unchanged. We will continue supplemental O2, DuoNeb nebulizer treatments, and IV Zosyn and Levaquin. We will continue to hold her n.p.o. as another aspiration pneumonia event may prove to be fatal. 2. Hypernatremia. Her serum sodium has dropped from 155 to 150. I will give her another L of D5 W and recheck a serum sodium in the morning. 3. Mild protein calorie malnutrition. She is tolerating tube feedings without complication. 4. Hypertension. Her blood pressure is stable. We will continue her current regimen of medications. cc: Rupert Brower MD
[2018-03-23] MEDS: D5W 1,000 ML IV SCH (16:14)
[2018-03-23] MEDS ORDERED: LASIX IV ONE (21:00)
[2018-03-23] MEDS: LOVENOX SUBQ SCH (22:13)
--- NOTE | 2018-03-23 23:40 | PULMONOLOGY PROGRESS NOTE ---
DATE: 03/23/2018 SUBJECTIVE: The patient is without new complaints. She does feel less short of breath. She continues to require 50% FiO2. Her voice remains very soft. OBJECTIVE: Vital Signs: The patient has been afebrile over the last 24 hours. Blood pressure 140/51, heart rate 81, respiratory rate 17, oxygen saturation 100%. HEENT: Pupils are equal and reactive. Oropharynx is slightly dry. Neck is supple. Chest: Reveals occasional rhonchi bilaterally. Cardiac: S1-S2. Abdomen: Soft, without hepatosplenomegaly. Extremities: Without edema. LABORATORIES: Sodium 150, potassium 3.9, chloride 111, bicarbonate 29, BUN 24, creatinine 0.6. Chest x-ray reveals faint bilateral infiltrates, which have not changed. IMPRESSION: An 82-year-old with: 1. Head and neck cancer, undergoing therapy. 2. Aspiration pneumonia. 3. Dysphagia. 4. Acute hypoxemic respiratory failure. 5. Hypernatremia, with improvement following D5W. RECOMMENDATIONS: 1. Agree with additional D5W as ordered. I will schedule a single dose of Lasix later this evening. 2. Continue oxygen, and wean as tolerated. 3. Continue tube feeds until voice has improved. 4. Overall prognosis is guarded. cc: MD Rupert Ovalle MD
[2018-03-24] MEDS: DUONEB (A & A) INH SCH ×4 (03:21→21:10)
[2018-03-24] MEDS: ZOSYN 3.375 GM in NS 50 ML IV SCH ×4 (03:46→21:35)
[2018-03-24] MEDS: PROTONIX SCH (06:10)
[2018-03-24 07:11] LABS: BASO# 0.01 X1000 (0.0-0.2); BASO% 0.1 % (0.0-0.8); EOS# 0.16 X1000 (0.0-0.7); EOS% 2.1 % (0.0-10.0); HEMOGLOBIN 9.5 g/dL (12.0-16.0); IMM GRAN# 0.07 X1000 (0.0-0.04); IMM GRAN% 0.9 % (0.0-0.5); LYMPH# 1.16 X1000 (1.2-3.4); LYMPH% 15.4 % (20.5-51.1); MCH 28.3 PG (27-31); MCHC 29.7 g/dL (33-37); MCV 95.2 FL (81-99); MONO# 0.32 X1000 (0.11-0.59); MONO% 4.2 % (1.7-9.3); MPV 10.2 FL (7.4-10.4); NEUT# 5.82 X1000 (1.4-6.5); NEUT% 77.3 % (42.2-75.2); PLT 211 X1000 (130-400); RBC 3.36 XMIL (4.2-5.4); RDW 17.2 % (11.5-14.5); WBC 7.54 X1000 (4.8-10.8)
--- NOTE | 2018-03-24 07:11 | Diag Imaging Result Doc PS360 ---
EXAM: CHEST-PORTABLE 03/24/2018 HISTORY: respiratory failure TECHNIQUE: AP portable at 0530 COMMENT: There is a feeding tube with its tip below the diaphragm presumably in the stomach. There is interstitial opacity bilaterally with some alveolar opacification in the retrocardiac left lower lobe. Overall this appears to have improved somewhat since 03/23/2018. IMPRESSION: Improved pulmonary edema. Electronically signed by Luis Manuel Meraz 03/24/2018 7:09 AM
[2018-03-24 07:17] LABS: MAGNESIUM 2.1 mg/dL (1.5-2.7)
[2018-03-24 07:26] LABS: AGAP 11; BUN 28 mg/dL (8-22); CALCIUM 9.1 mg/dL (8.8-10.2); CHLORIDE 106 mmol/L (98-107); COSMO 302; CREATININE 0.7 mg/dL (0.5-0.9); ESTIMATED GFR > 60; GLUCOSE 137 mg/dL (70-104); POTASSIUM 3.5 mmol/L (3.5-5.1); SODIUM 148 mmol/L (136-145); TCO2 31 mmol/L (25-35)
[2018-03-24] MEDS: ATIVAN PO SCH (09:29)
[2018-03-24] MEDS: CORTEF PO SCH ×2 (09:29→21:36)
[2018-03-24] MEDS: LEVAQUIN 500 MG/D5W 500 MG/100 ML IVPB IV SCH (09:29)
--- NOTE | 2018-03-24 09:29 | PROGRESS NOTE ---
DATE: 03/24/2018 SUBJECTIVE: Ms. Logan has a history of acute respiratory failure with hypoxia secondary to aspiration pneumonia. She seems to be breathing more comfortably this morning. She is maintaining O2 saturations of 98% to 100% on 50% oxygen. Chest x-ray shows interval improvement in the bilateral infiltrates. She had good urine output of nearly 2800 mL over the past 2 days. She is with complaint of multiple soft watery stools. She is not having any crampy abdominal pain. OBJECTIVE: Vital Signs: Temperature 97.8 degrees, pulse 81, blood pressure 135/46, respiratory rate 16. Cardiovascular: Regular rate and rhythm. Lungs: Scattered rhonchi in the lower lung yanes. Abdomen: Soft and nontender with active bowel sounds. Extremities: Without edema. LABORATORY DATA: BMP demonstrated sodium 148, potassium 3.5, chloride 106, BUN 28, creatinine 0.7, glucose 137. CBC demonstrated white count 7.54, hemoglobin 9.5, hematocrit 32, and platelet count 211,000. ASSESSMENT AND PLAN: 1. Acute respiratory failure with hypoxia secondary to aspiration pneumonia. 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 She is making slow progress, but her prognosis remains guarded. We will continue to try to wean her down off oxygen as feasible and will continue DuoNeb nebulizer treatments and intravenous Zosyn. We will diurese as needed. 2. Hypernatremia. Serum sodium is improved after 2 L of D5W. I will hold off on giving D5W today and recheck a BMP in the morning. 3. Diarrhea. Certainly, she has been on high potency antibiotics for several days. We will check stool studies to rule out Clostridium difficile colitis. If stool studies are negative for Clostridium difficile colitis, we will give her Lomotil as needed via nasogastric tube. cc: Rupert Brower MD
[2018-03-24] MEDS: D5W 1,000 ML IV SCH (11:09)
[2018-03-24] MEDS: LOVENOX SUBQ SCH (21:36)
[2018-03-25] MEDS: ZOSYN 3.375 GM in NS 50 ML IV SCH ×4 (03:07→22:36)
[2018-03-25] MEDS: DUONEB (A & A) INH SCH ×4 (03:10→21:05)
--- NOTE | 2018-03-25 04:26 | PULMONOLOGY PROGRESS NOTE ---
DATE: 03/24/2018 SUBJECTIVE: The patient reports she is having a better day. Her oxygen requirements have diminished. She has no shortness of breath. She has requested to not wear the BiPAP device this evening. OBJECTIVE: The patient has been afebrile for the last 24 hours. Blood pressure 127/39, heart rate 78, respiratory rate 18, oxygen saturation 93% on nasal cannula. HEENT: Pupils are equal and reactive. Oropharynx is clear. Neck: Supple Chest: Reveals faint crackles in the lung bases. Cardiac: S1-S2. Abdomen: Soft, without hepatosplenomegaly. Extremities: Without edema. LABORATORY STUDIES: Chest x-ray reveals some decreased pneumonia. Sodium 148, potassium 3.5, chloride 106, bicarbonate 31, BUN 28, creatinine 0.7. White blood count 7.54, hemoglobin 9.5, platelet count 221,000. IMPRESSION: An 82-year-old with: 1. Head and neck cancer. 2. Aspiration pneumonia. 3. Acute hypoxemic pneumonia. 4. Dysphagia. 5. Hypernatremia. Overall, the patient appears to be clinically improving. Her oxygen requirements have decreased, and her chest x-ray has improved. Her voice remains coarse, but appears slightly clearer. RECOMMENDATIONS: 1. Agree with low-dose D5W as you are doing. 2. Wean oxygen as tolerated. I believe the patient will do better this evening if we take her off the BiPAP. 3. Continue tube feeds as tolerated. 4. Prognosis is guarded. cc: MD Rupert Ovalle MD
[2018-03-25] MEDS: PROTONIX PO SCH (06:25)
[2018-03-25] MEDS: D5W 1,000 ML IV SCH (06:25)
[2018-03-25 08:11] LABS: AGAP 12; BUN 25 mg/dL (8-22); CALCIUM 8.7 mg/dL (8.8-10.2); CHLORIDE 101 mmol/L (98-107); COSMO 292; CREATININE 0.6 mg/dL (0.5-0.9); ESTIMATED GFR > 60; GLUCOSE 172 mg/dL (70-104); POTASSIUM 3.9 mmol/L (3.5-5.1); SODIUM 142 mmol/L (136-145); TCO2 29 mmol/L (25-35)
[2018-03-25] MEDS: ATIVAN PO SCH ×2 (09:05→22:35)
[2018-03-25] MEDS: CORTEF PO SCH ×2 (09:06→22:35)
[2018-03-25] MEDS: LEVAQUIN 500 MG/D5W 500 MG/100 ML IVPB IV SCH (09:06)
--- NOTE | 2018-03-25 09:28 | Diag Imaging Result Doc PS360 ---
CHEST-PORTABLE - 03/25/2018 INDICATION: respiratory failure COMPARISON: 03/24/2018 FINDINGS: Stable feeding tube with the tip in the stomach. Stable coarse peripheral opacities in the lung bases. No new infiltrates. Lung volumes remain somewhat low. Heart size remains normal. IMPRESSION: No change from prior. Electronically signed by Willy Krishnamurthy 03/25/2018 9:26 AM
--- NOTE | 2018-03-25 13:30 | PROGRESS NOTE ---
DATE: 03/25/2018 SUBJECTIVE: The patient has no complaints. She is nonverbal, but acknowledges with nods and mouths words and I can hear a faint whisper of a voice sometimes. OBJECTIVE: Vital Signs: 98.9, 73, 122/37, 97% saturated. General: On physical exam, the patient is alert, oriented, and she responds appropriately. She has an NG tube in. Eyes: Sclerae are anicteric. Lungs: The patient's lungs have a coarse quality to them on both sides, almost a dry, Velcro-like sound as she inspires. There is no expiratory wheezing and she moves air fairly well. Cardiovascular: Regular. LABORATORY: The patient's sodium is down to 142, BUN 25, creatinine 0.6, blood sugar 172. ASSESSMENT AND PLAN: 1. The patient has acute respiratory failure with hypoxemia secondary to aspiration pneumonia. She is immunocompromised due to radiation chemotherapy for head and neck squamous cell carcinoma. Although her prognosis long-term remains guarded, she appears to be moving in the right direction and has had correction in her sodium and overall status. 2. The patient's hypernatremia has been brought down to a sodium 142, we will re-dose D5 as necessary to normalize her sodium levels. 3. The patient has had diarrhea. C difficile toxin was negative. She is on high potency antibiotics as well as chemo radiation, which is somewhat not surprising that she has this issue ongoing. 4. The patient continues to require inpatient treatment. She has an nasogastric tube going. Her oxygen has been weaned down to 50%. She is being followed by Pulmonary. cc: MD Rupert Rasmussen MD
[2018-03-25] MEDS: LOVENOX SUBQ SCH (22:36)
[2018-03-26] MEDS: DUONEB (A & A) INH SCH ×4 (03:10→22:03)
[2018-03-26] MEDS: ZOSYN 3.375 GM in NS 50 ML IV SCH ×4 (03:12→20:40)
[2018-03-26] MEDS: D5W 1,000 ML IV SCH (03:12)
[2018-03-26] MEDS: PROTONIX PO SCH (06:44)
--- NOTE | 2018-03-26 07:51 | PULMONOLOGY PROGRESS NOTE ---
DATE: 03/25/2018 SUBJECTIVE: The patient is awake, alert, and conversant. Her voice quality continues to slowly improve. The patient reports she remained off of the BiPAP last night and slept well. OBJECTIVE: Vital Signs: Blood pressure 141/54, heart rate 80, respiratory rate 18, oxygen saturation 95% on nasal cannula. HEENT: Pupils are equal and reactive. Oropharynx is clear. Neck: Supple. Chest: Reveals minimal crackles in the bases but relatively clear. Cardiac Examination: S1-S2. Abdomen: Soft. Extremities: Without edema. Laboratories: Chest x-ray reveals minimal infiltrates in the bases. There has been improvement over the last several days. Sodium 142, potassium 3.9, chloride 101, bicarbonate 29, BUN 25, creatinine 0.6. IMPRESSION: An 82-year-old with aspiration pneumonia, acute hypoxemic respiratory failure, dysphagia, hyponatremia, with ongoing treatment for head and neck cancer. Overall, the patient continues to improve. She had tolerated sleeping without the BiPAP last evening. Her vocal cord quality is improving. RECOMMENDATIONS: 1. Continue current treatment regimen. 2. Continue current antibiotic regimen. 3. Wean oxygen as tolerated. 4. Consider trial of p.o. intake when she is down to 2 or 3 L of nasal cannula per minute. cc: MD Rupert Ovalle MD
[2018-03-26] MEDS: CORTEF PO SCH ×3 (07:58→20:41)
[2018-03-26] MEDS: LEVAQUIN 500 MG/D5W 500 MG/100 ML IVPB IV SCH (07:58)
--- NOTE | 2018-03-26 11:37 | PROGRESS NOTE ---
DATE: 03/26/2018 SUBJECTIVE: The patient is awake, alert, sitting in bed. She nods her answers and is able to whisper out certain responses. She states that she still feels like she is struggling a bit to breathe, although it is not severe. PHYSICAL EXAMINATION: Vital Signs: T-max 99.1 degrees, temperature now 98.2, pulse rate 73, respiratory rate 20 and appears unlabored, blood pressure is 121/34. The patient is 99% saturated on nasal cannula. Lungs: The left side upper lobe appears relatively clear. The right side still has a coarse dry crackly sound on inspiration. She has good air movement. There is no expiratory wheezing. Cardiovascular: Regular. Extremities: Show no edema. LABORATORIES: The patient had a laboratory holiday today. IMPRESSION AND PLAN: 1. Acute respiratory failure with hypoxemia secondary to aspiration pneumonitis. She is on appropriate medications. She is immunocompromised due to radiation and chemotherapy. Long- term prognosis is guarded. She continues to show clinical improvement in her respiratory status. 2. We will recheck the patient's sodium level due to her previous hypernatremia. I am going to discontinue her D50 as her sugars are running up a bit. 3. The patient has had diarrhea. There are multifactorial issues which may be affecting this. Her Clostridium difficile toxin was negative. Antigen was never run that I can tell, even though it was ordered. 4. The patient continues to require inpatient treatment. Nutritional status is stable. Oxygenation is stable. She appears to be improving. cc: MD Rupert Rasmussen MD
[2018-03-26] MEDS: ATIVAN PO SCH (20:40)
[2018-03-26] MEDS: LOVENOX SUBQ SCH (20:41)
[2018-03-26] MEDS ORDERED: LASIX IV ONE (21:00)
[2018-03-27] MEDS: ZOSYN 3.375 GM in NS 50 ML IV SCH ×4 (03:35→21:55)
[2018-03-27] MEDS: DUONEB (A & A) INH SCH ×4 (03:53→21:30)
[2018-03-27] MEDS: PROTONIX PO SCH (06:10)
--- NOTE | 2018-03-27 06:58 | Diag Imaging Result Doc PS360 ---
EXAM: CHEST-PORTABLE HISTORY: abnormal exam TECHNIQUE: Portable chest single view COMPARISON: 03/25/2018 FINDINGS: No change in the nasogastric tube. Poor inspiratory effort. There are infiltrates in the mid and lower lungs. These are slightly more pronounced on the current study. Small left pleural effusion. IMPRESSION: Mild interval worsening. Electronically signed by Yonatan Franco 03/27/2018 6:55 AM
[2018-03-27 07:19] LABS: MAGNESIUM 2.1 mg/dL (1.5-2.7)
[2018-03-27 07:23] LABS: AGAP 9; ALBUMIN 2.7 g/dL (3.5-5.0); ALKALINE PHOSPHATASE 111 U/L (32-104); BUN 23 mg/dL (8-22); CALCIUM 8.6 mg/dL (8.8-10.2); CHLORIDE 94 mmol/L (98-107); COSMO 271; CREATININE 0.7 mg/dL (0.5-0.9); ESTIMATED GFR > 60; GLUCOSE 147 mg/dL (70-104); GOT 18 U/L (10-30); GPT 22 U/L (10-36); POTASSIUM 3.8 mmol/L (3.5-5.1); SODIUM 132 mmol/L (136-145); TCO2 29 mmol/L (25-35); TOTAL BILIRUBIN 0.18 mg/dL (0.20-1.00); TOTAL PROTEIN 5.3 g/dL (6.3-8.3)
[2018-03-27 07:35] LABS: EOS# 0.11 X1000 (0.0-0.7); EOS% 1.8 % (0.0-10.0); HEMATOCRIT 24.9 % (37.0-47.0); HEMOGLOBIN 7.7 g/dL (12.0-16.0); LYMPH# 0.84 X1000 (1.2-3.4); MCH 28.5 PG (27-31); MCHC 30.9 g/dL (33-37); MCV 92.2 FL (81-99); MONO# 0.41 X1000 (0.11-0.59); MONO% 6.8 % (1.7-9.3); NEUT# 4.63 X1000 (1.4-6.5); NEUT% 77.4 % (42.2-75.2); PLT 174 X1000 (130-400); WBC 5.99 X1000 (4.8-10.8)
[2018-03-27] MEDS: CORTEF PO SCH ×2 (08:58→21:56)
[2018-03-27] MEDS: ATIVAN PO SCH (08:58)
[2018-03-27] MEDS: LEVAQUIN 500 MG/D5W 500 MG/100 ML IVPB IV SCH (09:06)
--- NOTE | 2018-03-27 13:05 | PROGRESS NOTE ---
DATE: 03/27/2018 SUBJECTIVE: Ms. Logan has a history of acute respiratory failure secondary to aspiration pneumonia. She is no longer requiring BiPAP at night. She is still using 50% O2 per face mask. She seems like she is breathing more comfortably. Her oxygen levels are ranging from 94% to 99%. Respiratory rate is in the range of 15 to 18. Chest x-ray shows some interval improvement. Serum sodium is trending down. Her serum sodium was 132. OBJECTIVE: Vital signs: Temperature 97.6 degrees, pulse 75, respirations 18, BP 120/28. CV: Regular rate and rhythm. Lungs: Crackles in the bases bilaterally. Abdomen: Soft, nontender, with active bowel sounds. ASSESSMENT AND PLAN: 1. Acute respiratory failure with hypoxia with aspiration pneumonia in the setting of an immunocompromised host. She continues to make slow progress. We will try to wean her off oxygen as tolerated and continue DuoNeb nebulizer treatments and IV Zosyn. Her prognosis is still guarded. 2. Hypernatremia. Her serum sodium was 132 today. The hypernatremia has resolved. We will stop the D5W. 3. Iron deficiency anemia. Her hemoglobin and hematocrit have dropped from 9.5 and 32 to 7.7 and 24.9. We will guaiac all bowel movements for occult blood. We will continue pantoprazole. cc: Rupert Brower MD
[2018-03-27] MEDS: LOVENOX SUBQ SCH (21:55)
--- NOTE | 2018-03-28 01:13 | PULMONOLOGY PROGRESS NOTE ---
DATE: 03/27/2018 SUBJECTIVE: The patient is awake, alert. Her voice is weak but discernable. She remains on Venturi mask. She is on 40% FiO2. OBJECTIVE: BP 116/40, heart rate 73, respiratory rate 19, oxygen saturation 100%.HEENT: Pupils are equal and reactive. Oropharynx is relatively clear. Neck: Is supple. Chest: Reveals faint crackles in the lung bases. Cardiac: S1-S2. Abdomen: Soft with good bowel sounds. Extremities: Without edema. LABORATORIES: Chest x-ray reveals mild bibasilar infiltrates, which are slightly more pronounced. White blood count 5.99, hemoglobin 7.7, platelet count 174,000, sodium 132, potassium 3.8, chloride 94, bicarbonate 29, BUN 23, creatinine 0.7. IMPRESSION: An 82-year-old with aspiration pneumonia, acute hypoxemic respiratory failure, dysphagia, and mild hyponatremia who is currently being treated for head and neck cancer. She is stable to marginally improved. RECOMMENDATION: 1. Continue oxygen as tolerated. She can be cycled to BiPAP if needed. 2. Continue current antibiotic treatment. 3. Continue tube feeds until voice improves. cc: MD Rupert Ovalle MD
[2018-03-28] MEDS: DUONEB (A & A) INH SCH ×4 (04:00→20:30)
[2018-03-28] MEDS: ZOSYN 3.375 GM in NS 50 ML IV SCH ×4 (04:33→21:28)
[2018-03-28] MEDS: PROTONIX PO SCH (06:57)
[2018-03-28] MEDS: LEVAQUIN 500 MG/D5W 500 MG/100 ML IVPB IV SCH (08:47)
[2018-03-28] MEDS: CORTEF PO SCH ×2 (08:47→21:28)
[2018-03-28] MEDS: ATIVAN PO SCH (08:52)
--- NOTE | 2018-03-28 11:49 | PROGRESS NOTE ---
DATE: 03/28/2018 SUBJECTIVE: Ms. Logan was admitted to [facility] with acute respiratory failure with hypoxia secondary to aspiration pneumonia. Chest x-rays demonstrate interval improvement. She reports that she is breathing more comfortably. She is maintaining O2 saturations of 97% to 100% on 40% oxygen. She has a minimal nonproductive cough. Her voice seems stronger. She is tolerating tube feedings. OBJECTIVE: Vital Signs: She is afebrile, pulse 73, respirations 19, BP 116/40. CV: Regular rate and rhythm. Lungs: Faint rhonchi in the bases bilaterally. Abdomen: Soft, nontender with active bowel sounds. Extremities: Without edema. ASSESSMENT AND PLAN: Acute respiratory failure with hypoxia secondary to aspiration pneumonia. Clinically, she is making slow progress. We will continue to wean off oxygen as tolerated. We will use BiPAP as needed. We will continue DuoNeb nebulizer treatments and broad-spectrum antibiotics. cc: Rupert Brower MD
[2018-03-28] MEDS: LOVENOX SUBQ SCH (21:28)
--- NOTE | 2018-03-28 23:14 | PULMONOLOGY PROGRESS NOTE ---
DATE: 03/28/2018 SUBJECTIVE: The patient is awake and alert. Her voice is improving. She is without specific complaints. OBJECTIVE: Vital Signs: The patient has been afebrile for the last 24 hours. Blood pressure 129/38, heart rate 81, respiratory rate 19, oxygen saturation 100%. HEENT: Pupils are equal and reactive. Oropharynx is clear. Neck: Supple. Chest: Reveals crackles in both lung bases. Cardiac: S1, S2. Abdomen: Soft, and without hepatosplenomegaly. Extremities: Reveal trace edema. LABORATORIES: No new imaging or laboratory information. IMPRESSION: An 82-year-old with: 1. Head and neck cancer, undergoing active treatment. 2. Aspiration pneumonia. 3. Acute hypoxemic respiratory failure. 4. Dysphagia. She remains weak, but stable. RECOMMENDATION: 1. Continue oxygen as needed. She can be cycled on BiPAP if needed. 2. Continue current antibiotic regimen. 3. Continue tube feeds. 4. Follow up chest x-ray and laboratories tomorrow morning. 5. Overall prognosis is guarded. cc: MD Rupert Ovalle MD
[2018-03-29] MEDS: DUONEB (A & A) INH SCH ×4 (03:34→22:19)
[2018-03-29] MEDS: ZOSYN 3.375 GM in NS 50 ML IV SCH ×4 (04:30→21:00)
[2018-03-29] MEDS: PROTONIX PO SCH (06:57)
--- NOTE | 2018-03-29 07:20 | Diag Imaging Result Doc PS360 ---
EXAM: CHEST-PORTABLE 03/29/2018 HISTORY: abnormal exam TECHNIQUE: AP portable at 0603 COMMENT: There is a feeding tube with its tip below the diaphragm. There are patchy alveolar opacities and increased interstitial markings bilaterally. This is particularly notable in the left lower lobe. There is also a likely effusion on the left. Compared to 03/27/2018 there has been no appreciable change. There may be slightly more left pleural fluid than on 03/25/2018. IMPRESSION: Pulmonary edema with left pleural effusion. Electronically signed by Luis Manuel Meraz 03/29/2018 7:18 AM
[2018-03-29 07:53] LABS: BASO# 0.01 X1000 (0.0-0.2); BASO% 0.2 % (0.0-0.8); EOS# 0.11 X1000 (0.0-0.7); EOS% 2.7 % (0.0-10.0); HEMATOCRIT 23.9 % (37.0-47.0); HEMOGLOBIN 7.3 g/dL (12.0-16.0); IMM GRAN# 0.02 X1000 (0.0-0.04); IMM GRAN% 0.5 % (0.0-0.5); LYMPH# 0.46 X1000 (1.2-3.4); LYMPH% 11.4 % (20.5-51.1); MCHC 30.5 g/dL (33-37); MCV 91.6 FL (81-99); MONO# 0.38 X1000 (0.11-0.59); MONO% 9.4 % (1.7-9.3); MPV 10.3 FL (7.4-10.4); NEUT# 3.06 X1000 (1.4-6.5); NEUT% 75.8 % (42.2-75.2); PLT 189 X1000 (130-400); RBC 2.61 XMIL (4.2-5.4); RDW 15.9 % (11.5-14.5); WBC 4.04 X1000 (4.8-10.8)
[2018-03-29 08:30] LABS: AGAP 10; ALB/GLOB RATIO 1.1; ALBUMIN 2.7 g/dL (3.5-5.0); ALKALINE PHOSPHATASE 108 U/L (32-104); BUN 22 mg/dL (8-22); CALCIUM 8.8 mg/dL (8.8-10.2); CHLORIDE 97 mmol/L (98-107); COSMO 276; CREATININE 0.6 mg/dL (0.5-0.9); ESTIMATED GFR > 60; GLUCOSE 143 mg/dL (70-104); GOT 18 U/L (10-30); GPT 17 U/L (10-36); MAGNESIUM 2.1 mg/dL (1.5-2.7); PHOSPHORUS 2.8 mg/dL (2.7-4.5); POTASSIUM 3.9 mmol/L (3.5-5.1); SODIUM 135 mmol/L (136-145); TCO2 28 mmol/L (25-35); TOTAL PROTEIN 5.2 g/dL (6.3-8.3)
[2018-03-29] MEDS: CORTEF PO SCH ×2 (09:39→21:00)
[2018-03-29] MEDS: LEVAQUIN 500 MG/D5W 500 MG/100 ML IVPB IV SCH (09:39)
[2018-03-29] MEDS: COZAAR PO SCH (09:40)
[2018-03-29] MEDS ORDERED: LASIX IV ONE (10:44)
--- NOTE | 2018-03-29 12:46 | PROGRESS NOTE ---
DATE: 03/29/2018 SUBJECTIVE: Ms. Logan was admitted to [facility] with acute respiratory failure with hypoxia secondary to aspiration pneumonia. Overnight, they had to increase her oxygen requirements. Chest x-ray shows bilateral infiltrates. She continues with a minimal cough. She has a history of gastroesophageal reflux disease. Her blood counts have been trending down. Hemoglobin was 7.3 this morning. Her hematocrit was 23.9. She has not had any melena or hematochezia. OBJECTIVE: Vital Signs: Temperature 97.4 degrees, pulse 78, respirations 17, BP 128/34. CV: Regular rate and rhythm. Lungs: Crackles in the bases bilaterally. Abdomen: Soft, nontender, with active bowel sounds. ASSESSMENT: 1. Acute respiratory failure with hypoxia secondary to aspiration pneumonia. 2. Acute blood loss anemia. PLAN: She had increasing oxygen requirements last night. Because of the anemia, I will type, crossmatch, and transfuse 1 unit of packed red blood cells. I hope that by improving her blood counts that she will require less oxygen to maintain her O2 saturations. We will continue nebulizer treatments and broad-spectrum antibiotics. Prognosis is guarded. cc: Rupert Brower MD
[2018-03-29] MEDS: LOVENOX SUBQ SCH (21:00)
[2018-03-29] MEDS: ATIVAN PO SCH (21:00)
--- NOTE | 2018-03-30 01:32 | PULMONOLOGY PROGRESS NOTE ---
DATE: 03/29/2018 SUBJECTIVE: The patient reports her throat is sore, but her voice has markedly improved. OBJECTIVE: Vital Signs: The patient is afebrile for the last 24 hours. Blood pressure 128/31, heart rate 78, respiratory rate 16, oxygen saturation 100%. HEENT: Pupils are equal and reactive. Oropharynx appears clear. Neck: Supple. Chest: Reveals good air entry bilaterally with faint crackles in the bases. Cardiac: S1 and S2. Abdomen: Soft and without hepatosplenomegaly. Extremities: Without edema. LABORATORY DATA: Sodium 135, potassium 3.9, chloride 97, bicarbonate 28, BUN 22, creatinine 0.6. White blood count 4.04, hemoglobin 7.3, platelet count 189,000. Chest x-ray reveals slightly increased effusion on the left with stable bilateral infiltrates. IMPRESSION: An 82-year-old with: 1. Acute hypoxemic respiratory failure. 2. Aspiration pneumonia. 3. Head and neck cancer undergoing active treatment. 4. Dysphagia. 5. Dysphonia with improvement in phonation. RECOMMENDATIONS: 1. Continue oxygen as tolerated. She can be cycled on BiPAP as needed. 2. Continue current antibiotic regimen. 3. Continue tube feeds. 4. With improvement in voice, we will ask speech therapy to evaluate swallowing tomorrow to see if she can be transitioned back to p.o. intake. 5. Guarded prognosis. cc: MD Rupert Ovalle MD
[2018-03-30] MEDS: DUONEB (A & A) INH SCH ×4 (03:21→21:00)
[2018-03-30] MEDS: ZOSYN 3.375 GM in NS 50 ML IV SCH ×4 (03:43→20:48)
[2018-03-30] MEDS: PROTONIX PO SCH (06:58)
[2018-03-30] MEDS ORDERED: LASIX IV ONE (07:00)
[2018-03-30] MEDS: LEVAQUIN 500 MG/D5W 500 MG/100 ML IVPB IV SCH (08:34)
[2018-03-30] MEDS: CORTEF PO SCH ×3 (08:35→21:26)
[2018-03-30] MEDS: COZAAR PO SCH (08:36)
--- NOTE | 2018-03-30 13:03 | PROGRESS NOTE ---
DATE: 03/30/2018 SUBJECTIVE: Ms. Logan was admitted to [facility] with acute respiratory failure with hypoxia secondary to aspiration pneumonia. She is awake and easily arousable. Her voice is much stronger. She is maintaining good oxygen levels. She is tolerating tube feedings. OBJECTIVE: Vital signs: She is afebrile. Vital signs are stable. CV: Regular rate and rhythm. Lungs: Faint crackles in the bases bilaterally. Abdomen: Soft, nontender, with active bowel sounds. Extremities: Without edema. ASSESSMENT AND PLAN: 1. Acute respiratory failure with hypoxia secondary to aspiration pneumonia. 2. Squamous cell cancer of the head and neck undergoing active treatment. 3. Clinically, she looks better this morning. We will continue to try to wean her off oxygen as feasible, and we will continue DuoNeb nebulizer treatments and IV Zosyn. Her voice is stronger, and we will consult speech therapy to reconsider a modified barium swallow to reassess her swallowing to see if it would be safe for her to eat. We will continue tube feedings to improve nutritional status. cc: Rupert Brower MD
[2018-03-30] MEDS: ATIVAN PO SCH (20:50)
[2018-03-30] MEDS: LOVENOX SUBQ SCH (20:50)
[2018-03-31] MEDS: ZOSYN 3.375 GM in NS 50 ML IV SCH ×4 (02:59→23:14)
[2018-03-31] MEDS: DUONEB (A & A) INH SCH ×4 (04:00→20:09)
--- NOTE | 2018-03-31 04:23 | PULMONOLOGY PROGRESS NOTE ---
DATE: 03/30/2018 SUBJECTIVE: Patient is awake, alert, and conversant. Her voice continues to get stronger. She is tolerating tube feeds. Speech therapy was consulted, but she did have some nausea and was sedated with Phenergan at the time that was evaluated, and this was delayed. OBJECTIVE: Vital Signs: BP 146/41, heart rate 74, respiratory rate 16, oxygen saturation 96% on Venturi mask. HEENT: Pupils are equal and reactive. Oropharynx is clear. Neck: Supple. Chest: Reveals crackles in the lung bases. Cardiac: S1, S2. Abdomen: Soft. Extremities: Without edema. LABORATORIES: No new chemistries or CBC. IMPRESSION: An 82-year-old with 1. Aspiration pneumonia. 2. Acute hypoxemic respiratory failure. 3. Head and neck cancer. 4. Dysphagia. 5. Dysphonia. 6. Nausea. RECOMMENDATION: 1. Continue oxygen as tolerated and cycle BiPAP if needed. 2. Continue current antibiotic regimen. We will hold tube feeds if she has additional nausea. 3. Overall prognosis is guarded. cc: MD Rupert Ovalle MD
--- NOTE | 2018-03-31 06:49 | Diag Imaging Result Doc PS360 ---
EXAM: CHEST-PORTABLE HISTORY: abnormal exam TECHNIQUE: Portable chest single view COMPARISON: 03/29/2018 FINDINGS: Poor inspiratory effort. There are increased interstitial markings throughout both mid and lower lungs. These are slightly more prominent. Heart is borderline mildly enlarged and there is a small left pleural effusion. IMPRESSION: Mild interval worsening. Electronically signed by Yonatan Franco 03/31/2018 6:47 AM
[2018-03-31 07:44] LABS: EOS# 0.16 X1000 (0.0-0.7); EOS% 4.1 % (0.0-10.0); HEMATOCRIT 31.7 % (37.0-47.0); HEMOGLOBIN 9.8 g/dL (12.0-16.0); LYMPH# 0.44 X1000 (1.2-3.4); LYMPH% 11.2 % (20.5-51.1); MCHC 30.9 g/dL (33-37); MCV 90.6 FL (81-99); MONO# 0.31 X1000 (0.11-0.59); MONO% 7.9 % (1.7-9.3); NEUT# 3.02 X1000 (1.4-6.5); NEUT% 76.8 % (42.2-75.2); PLT 222 X1000 (130-400); RDW 16.4 % (11.5-14.5); WBC 3.93 X1000 (4.8-10.8)
[2018-03-31 07:59] LABS: AGAP 14; ALBUMIN 2.8 g/dL (3.5-5.0); ALKALINE PHOSPHATASE 110 U/L (32-104); BUN 25 mg/dL (8-22); CALCIUM 9.3 mg/dL (8.8-10.2); CHLORIDE 105 mmol/L (98-107); COSMO 299; CREATININE 0.8 mg/dL (0.5-0.9); ESTIMATED GFR > 60; GLUCOSE 110 mg/dL (70-104); GOT 18 U/L (10-30); GPT 15 U/L (10-36); MAGNESIUM 2.2 mg/dL (1.5-2.7); POTASSIUM 3.7 mmol/L (3.5-5.1); SODIUM 148 mmol/L (136-145); TCO2 29 mmol/L (25-35); TOTAL BILIRUBIN 0.46 mg/dL (0.20-1.00); TOTAL PROTEIN 5.5 g/dL (6.3-8.3)
[2018-03-31 09:00] LABS: ALLEN TEST YES; BE 7.4 mmoll (-3.0-3.0); BLOOD TYPE ARTERIAL; HCO3-(ACT) 30.6 mmoll (20.0-26.0); METHB 1.6 % (0.0-1.5); O2(CT) 13.1 mL/dL (15.0-23.0); O2HB 92.7 % (95.0-99.0); PCO2(98.6) 40 mmHg (35-45); PO2(98.6) 68 mmHg (60-100); SAMPLE BLOOD; SAO2 96.8 % (95.0-100.0)
[2018-03-31 09:02] LABS: MODALITY VENTIMASK
[2018-03-31] MEDS: LEVAQUIN 500 MG/D5W 500 MG/100 ML IVPB IV SCH (09:25)
[2018-03-31] MEDS: CORTEF PO SCH ×2 (09:25→21:04)
[2018-03-31] MEDS: PROTONIX PO SCH (09:25)
[2018-03-31] MEDS: COZAAR PO SCH (09:25)
--- NOTE | 2018-03-31 11:59 | EKG Report ---
Test Performed on : 03/31/2018 11:39:32 AM Test Reason : chest pain Blood Pressure : / mmHG Vent. Rate : 064 BPM Atrial Rate : 064 BPM P-R Int : 160 ms QRS Dur : 084 ms QT Int : 430 ms P-R-T Axes : 051 080 112 degrees QTc Int : 443 ms Normal sinus rhythm. T wave abnormality, consider anterior ischemia Abnormal ECG When compared with ECG of 16-MAR-2018 01:27, Vent. rate has decreased BY 47 BPM Non-specific change in ST segment in Lateral leads T wave inversion more evident in Anterior leads Confirmed by Kranthi Abbasi MD ([id number]) on 03/31/2018 9:21:54 PM
--- NOTE | 2018-03-31 12:42 | PROGRESS NOTE ---
DATE: 03/31/2018 SUBJECTIVE: Ms. Logan was admitted to [facility] with acute respiratory failure with aspiration pneumonia. She continues to improve slowly. She is maintaining O2 saturations of 94% to 98%. We have been able to reduce the O2 to 30%. Her NG tube became displaced during the night and is now out. Speech Therapy saw the patient and performed a modified barium swallow. There was no penetration of thin liquids. She was able to eat pureed food without penetration. She was not able to tolerate mechanical soft diet. She had an episode of chest pain. It was dull, throbbing pain. There was no radiation of pain to her neck and arm. She was having increasing reflux. An EKG demonstrated normal sinus rhythm with nonspecific T wave changes anteriorly. OBJECTIVE: Temperature 97.6, pulse 64, respirations 18, blood pressure 134/54. Cardiovascular: Regular rate and rhythm. Lungs: Faint crackles in the bases bilaterally. Abdomen: Soft, nontender, with active bowel sounds. ASSESSMENT AND PLAN: 1. Acute respiratory failure with hypoxia secondary to aspiration pneumonia. We will continue to wean down on the O2 as long as O2 saturations are greater than 90% and continue DuoNeb nebulizer treatments and broad spectrum antibiotics. We will begin a pureed diet with thin liquids. Speech Therapy will continue to work with the patient, and we will advance her diet as able. 2. Chest pain. She had an isolated episode of chest pain. Her EKG demonstrated normal sinus rhythm with nonspecific T wave changes anteriorly. I will check serial cardiac enzymes. One would also have to consider the possibility of blood clots since she has been bedbound. She is on Lovenox. I will check a D-dimer. cc: Rupert Brower MD
--- NOTE | 2018-03-31 14:30 | Diag Imaging Result Doc PS360 ---
EXAM: CT ANGIOGRM PULMONARY ARTERIES INDICATION: chest pain, dyspnea, elevated d dimer TECHNIQUE: This exam was performed using automated exposure control, adjustment of mA or kV according to patient size, and/or use of iterative reconstruction technique. Thin section axial images and 3-D MIPS were obtained. COMPARISON: None. FINDINGS: There is no evidence of pulmonary embolism. There is mild aortic atherosclerotic calcification. There is no evidence of aortic aneurysm or dissection. There is cardiomegaly. There are small shotty mediastinal and hilar lymph nodes that are probably reactive. There are extensive patchy airspace consolidation seen throughout both lungs with a basilar predominance interstitial thickening indicating pulmonary edema. However, a component of pneumonia is certainly possible. There is trace pleural fluid bilaterally. There is no pneumothorax. Limited views of the upper abdomen are essentially unremarkable. IMPRESSION: 1.Extensive interstitial and airspace infiltrates seen throughout both lungs but with a basilar predominance suggesting pulmonary edema and suspicious for superimposed pneumonia. 2.Cardiomegaly. 3.No evidence of pulmonary embolism. Electronically signed by Angel Díaz 03/31/2018 2:27 PM
[2018-03-31] MEDS: ATIVAN PO SCH (21:03)
[2018-03-31] MEDS: LOVENOX SUBQ SCH (21:04)
[2018-04-01] MEDS: DUONEB (A & A) INH SCH ×4 (03:35→19:45)
[2018-04-01 05:10] LABS: ALLEN TEST YES; BLOOD TYPE ARTERIAL; HCO3-(ACT) 27.1 mmoll (20.0-26.0); METHB 1.2 % (0.0-1.5); O2(CT) 20.5 mL/dL (15.0-23.0); O2HB 91.7 % (95.0-99.0); PCO2(98.6) 39 mmHg (35-45); PO2(98.6) 66 mmHg (60-100); SAMPLE BLOOD; SAO2 94.8 % (95.0-100.0); THB 15.9 g/dL (11.5-17.4); pH(98.6) 7.45 (7.35-7.45)
[2018-04-01 05:13] LABS: MODALITY VENTIMASK
[2018-04-01] MEDS: PROTONIX PO SCH (06:00)
[2018-04-01] MEDS: ZOSYN 3.375 GM in NS 50 ML IV SCH ×4 (06:00→23:22)
[2018-04-01] MEDS ORDERED: LASIX IV ONE (07:38)
[2018-04-01] MEDS: LEVAQUIN 500 MG/D5W 500 MG/100 ML IVPB IV SCH (08:42)
[2018-04-01] MEDS: CORTEF PO SCH ×2 (08:42→22:16)
[2018-04-01] MEDS: COZAAR PO SCH (08:42)
--- NOTE | 2018-04-01 09:54 | PROGRESS NOTE ---
DATE: 04/01/2018 SUBJECTIVE: Ms. Logan was admitted to [facility] with acute respiratory failure with aspiration pneumonia. She had an isolated episode of chest pain yesterday. Her CPK was normal. Troponin was mildly elevated. Her D-dimer was elevated. A CT scan of the thorax demonstrated aspiration pneumonia, small pleural effusion, but no evidence of blood clots. She has had no further episodes of chest pain. She is breathing comfortably. She is maintaining O2 saturations of 95% to 97% on 3.5 L of O2 per nasal cannula. Her voice is much stronger. She is tolerating a pureed diet. OBJECTIVE: Vital Signs: Temperature 98.3 degrees, pulse 80, respirations 16, BP 143/45. CV: Regular rate and rhythm. Lungs: Faint crackles in the bases bilaterally. Abdomen: Soft, nontender, with active bowel sounds. ASSESSMENT AND PLAN: 1. Acute respiratory failure with hypoxia secondary to aspiration pneumonia. Clinically, she continues to improve slowly. We will continue supplemental oxygen, DuoNeb nebulizer treatments, and current antibiotics including Levaquin and Zosyn. 2. Hypertension. Her blood pressure is stable. We will continue her current regimen of medications. cc: Rupert Brower MD
[2018-04-01] MEDS: ATIVAN PO SCH (22:16)
[2018-04-01] MEDS: LOVENOX SUBQ SCH (22:16)
[2018-04-02] MEDS: DUONEB (A & A) INH SCH ×4 (03:00→22:00)
[2018-04-02] MEDS: ZOSYN 3.375 GM in NS 50 ML IV SCH ×3 (05:49→18:20)
[2018-04-02] MEDS: PROTONIX PO SCH (06:00)
[2018-04-02 08:33] LABS: CALCIUM 8.9 mg/dL (8.8-10.2); CREATININE 0.9 mg/dL (0.5-0.9)
[2018-04-02 08:36] LABS: POTASSIUM 2.5 mmol/L (3.5-5.1)
[2018-04-02] MEDS ORDERED: POTASSIUM CHLORIDE 20% LIQUID PO ONE (08:50)
[2018-04-02] MEDS: COZAAR PO SCH (09:32)
[2018-04-02] MEDS: LEVAQUIN 500 MG/D5W 500 MG/100 ML IVPB IV SCH (09:32)
[2018-04-02] MEDS: CORTEF PO SCH ×2 (09:32→21:02)
[2018-04-02] MEDS ORDERED: KLOR-CON PO ONE (10:40)
--- NOTE | 2018-04-02 11:40 | PROGRESS NOTE ---
DATE: 04/02/2018 SUBJECTIVE: Mrs. Logan was admitted to [facility] with acute respiratory failure with hypoxia secondary to aspiration pneumonia. She continues to improve clinically. She is maintaining O2 saturations of 94 to 97% on 3 L of O2. She has a minimal nonproductive cough. She is tolerating a pureed diet without nausea, vomiting, or obvious choking spells. Her blood pressure is stable. Systolic blood pressures are ranging from 110 to 121, whereas her diastolic blood pressures are ranging from 35 to 50. She denies any chest pain, palpitations, or anginal equivalents. OBJECTIVE: Vital signs: Temperature 97.9 degrees, pulse 66, respiratory rate 16, BP 110/35. CV: Regular rate and rhythm. Lungs: Faint crackles in the bases bilaterally. Abdomen: Soft, nontender, with active bowel sounds. ASSESSMENT AND PLAN: 1. Acute respiratory failure with hypoxia secondary to aspiration pneumonia. Clinically, she continues to improve. We will continue to try to wean her down off oxygen and continue nebulizer treatments and IV antibiotics. Hopefully we can transition her to oral antibiotics fairly soon. We will increase her activity. She may sit up in a chair each shift. 2. Mild protein calorie malnutrition. She may take her own Premiere shakes 3 times daily 3. Hypokalemia. I will give her an additional 40 mEq of KCl this morning. Recheck a BMP in the morning. cc: Rupert Brower MD
[2018-04-02] MEDS: ATIVAN PO SCH (21:02)
[2018-04-02] MEDS: LOVENOX SUBQ SCH (21:02)
[2018-04-03] MEDS: ZOSYN 3.375 GM in NS 50 ML IV SCH ×4 (00:43→18:16)
[2018-04-03] MEDS: DUONEB (A & A) INH SCH ×4 (03:30→21:35)
[2018-04-03] MEDS: TYLENOL PO PRN (03:37)
[2018-04-03] MEDS: PROTONIX PO SCH ×2 (05:52→06:01)
[2018-04-03 07:26] LABS: BASO# 0.01 X1000 (0.0-0.2); BASO% 0.3 % (0.0-0.8); EOS% 9.8 % (0.0-10.0); HEMATOCRIT 30.3 % (37.0-47.0); HEMOGLOBIN 9.3 g/dL (12.0-16.0); LYMPH# 0.52 X1000 (1.2-3.4); LYMPH% 16.9 % (20.5-51.1); MCH 28.3 PG (27-31); MCHC 30.7 g/dL (33-37); MCV 92.1 FL (81-99); MONO# 0.19 X1000 (0.11-0.59); MONO% 6.2 % (1.7-9.3); NEUT# 2.05 X1000 (1.4-6.5); NEUT% 66.8 % (42.2-75.2); PLT 232 X1000 (130-400); RBC 3.29 XMIL (4.2-5.4); WBC 3.07 X1000 (4.8-10.8)
--- NOTE | 2018-04-03 07:46 | Diag Imaging Result Doc PS360 ---
EXAM: CHEST-1 VIEW INDICATION: SOB TECHNIQUE: One view COMPARISON: 03/31/2018 FINDINGS: Lung volumes are lower than the previous study. Bilateral infiltrates with a basilar predominance are essentially stable. No new consolidation is identified. Cardiac silhouette is stable. IMPRESSION: Lower lung volumes but essentially stable chest, otherwise. Electronically signed by Angel Díaz 04/03/2018 7:44 AM
[2018-04-03 07:51] LABS: AGAP 10; BUN 23 mg/dL (8-22); CALCIUM 9.3 mg/dL (8.8-10.2); CHLORIDE 102 mmol/L (98-107); COSMO 283; CREATININE 0.8 mg/dL (0.5-0.9); ESTIMATED GFR > 60; GLUCOSE 95 mg/dL (70-104); MAGNESIUM 2.1 mg/dL (1.5-2.7); POTASSIUM 3.4 mmol/L (3.5-5.1); SODIUM 140 mmol/L (136-145); TCO2 28 mmol/L (25-35)
--- NOTE | 2018-04-03 08:33 | PROGRESS NOTE ---
DATE: 04/03/2018 SUBJECTIVE: Mrs. Logan continues to improve. She is maintaining O2 saturations of 94% to 98% on 3 L of O2. She has a minimal nonproductive cough. Chest x-ray shows residual bilateral infiltrates. There has been no interval worsening. She is tolerating a pureed diet without coughing or choking. OBJECTIVE: Vital Signs: Blood pressure is stable, temperature 97.9 degrees, pulse 66, respirations 18, BP 108/49. CV: Regular rate and rhythm. Lungs: Faint crackles in the bases bilaterally. Abdomen: Soft, nontender, with active bowel sounds. ASSESSMENT AND PLAN: 1. Acute respiratory failure with hypoxia secondary to aspiration pneumonia. She continues to make steady progress. She is down to 3 liters of oxygen. We will try to wean her off oxygen as tolerated. We will continue DuoNeb nebulizer treatments, and I am hoping that we can transition her to oral antibiotics. 2. Mild protein calorie malnutrition. We will continue a pureed diet, and continue protein shakes three times daily to increase caloric intake. 3. Hypertension. Her blood pressure is stable. We will continue her current regimen of medications. 4. Physical debility. We will have her sit up in a chair at least once a shift. We will continue physical therapy. cc: Rupert Brower MD
[2018-04-03] MEDS: LEVAQUIN 500 MG/D5W 500 MG/100 ML IVPB IV SCH (09:37)
[2018-04-03] MEDS: COZAAR PO SCH (09:37)
[2018-04-03] MEDS: CORTEF PO SCH ×2 (09:37→21:05)
--- NOTE | 2018-04-03 13:38 | PULMONOLOGY PROGRESS NOTE ---
DATE: 04/03/2018 SUBJECTIVE: The patient is awake, alert, and conversant. Her voice has markedly improved. She is tolerating p.o. intake without difficulty. OBJECTIVE: Vital Signs: The patient has been afebrile for the last 24 hours. Oxygen saturation 100% on 3 L per nasal cannula. HEENT: Pupils are equal and reactive. Oropharynx appears clear. Neck: Supple. Chest: Reveals faint crackles in the lung bases. Cardiac exam: S1, S2. Abdomen: Soft and without hepatosplenomegaly. Extremities: Without edema. LABORATORIES: White blood count 3.07, hemoglobin 9.3, platelet count 232,000. Arterial blood gas, pH 7.45, pCO2 of 39, PO2 of 66 on 04/01/2018. Chest x-ray reveals bilateral infiltrates without change. IMPRESSIONS: This is an 82-year-old with: 1. Aspiration pneumonia. 2. Acute hypoxemic respiratory failure. 3. Head and neck cancer, in mid treatment. 4. Dysphagia. 5. Dysphonia with improvement. 6. Generalized weakness. 7. Overall, patient continues to improve p.o. intake is improving. Oxygen is being weaned. Voice has improved. RECOMMENDATION: 1. Continue current antibiotic regimen. 2. Continue to wean oxygen as tolerated. 3. Continue to mobilize and utilize physical therapy. 4. Overall prognosis has improved over the weekend. cc: MD Rupert Ovalle MD
[2018-04-03] MEDS: ATIVAN PO SCH (21:04)
[2018-04-03] MEDS: LOVENOX SUBQ SCH (21:06)
[2018-04-04] MEDS: ZOSYN 3.375 GM in NS 50 ML IV SCH ×4 (01:00→17:50)
[2018-04-04] MEDS: DUONEB (A & A) INH SCH ×4 (03:45→19:16)
[2018-04-04] MEDS: PROTONIX PO SCH (06:07)
[2018-04-04] MEDS: CORTEF PO SCH ×2 (09:01→20:00)
[2018-04-04] MEDS: COZAAR PO SCH (09:01)
[2018-04-04] MEDS: LEVAQUIN 500 MG/D5W 500 MG/100 ML IVPB IV SCH (09:08)
--- NOTE | 2018-04-04 16:36 | PROGRESS NOTE ---
DATE: 04/04/2018 Mrs. Logan is maintaining O2 saturations of 94% to 96% on 3 L of O2. Chest x-ray shows bilateral infiltrates without change. She is tolerating a pureed diet without coughing. Her voice is much stronger. OBJECTIVE: Vital signs: She is afebrile, pulse 70, respirations 16, BP 111/55. Cardiovascular: Regular rate and rhythm. Lungs: Faint crackles in the bases bilaterally. Abdomen: Soft, nontender, with active bowel sounds. ASSESSMENT AND PLAN: 1. Acute respiratory failure with hypoxia secondary to aspiration pneumonia. She continues to improve. We will continue to wean oxygen as tolerated and continue broad-spectrum antibiotics and DuoNeb nebulizer treatments. 2. Hypertension. Her blood pressure is stable. We will continue her current regimen of medications. 3. General debility. We will continue to mobilize the patient and continue daily physical therapy. At this point in time, it does not appear that she will be strong enough to return home safely, even with home health. I have talked to her about the possibility of short-term rehabilitation. cc: Rupert Brower MD
[2018-04-04] MEDS: LOVENOX SUBQ SCH (20:00)
[2018-04-04] MEDS: ATIVAN PO SCH (20:00)
--- NOTE | 2018-04-04 22:04 | PULMONOLOGY PROGRESS NOTE ---
DATE: 04/04/2018 SUBJECTIVE: The patient is awake, alert and conversant. She has been sitting in the chair some today. She is tolerating p.o. intake and continues to appear stronger. OBJECTIVE: Vital Signs: The patient has been afebrile for the last 24 hours. Blood pressure 117/38, heart rate 87, oxygen saturation 95% on 2.5 L/second nasal cannula. HEENT: Pupils are equal and reactive. Oropharynx is clear. Neck: Supple. Chest: Reveals good air entry bilaterally, without wheezing or rhonchi. Cardiac: S1, S2. Abdomen: Soft, with good bowel sounds. Extremities: Without edema. IMPRESSION: An 82-year-old with: 1. Aspiration pneumonia. 2. Acute hypoxemic respiratory failure. 3. Head and neck cancer. 4. Resolving dysphagia. 5. Resolving dysphonia. 6. Generalized weakness. DISCUSSION: Overall, patient continues to improve. She does remain weak. I agree with Dr. Brower, patient will likely need a rehabilitation stay to regain her strength before discharge. RECOMMENDATION: 1. Obtain chest x-ray tomorrow. 2. Consider discontinuing antibiotics if her chest x-ray remains stable. 3. Wean oxygen as tolerated. 4. Anticipate discharge to rehab. cc: MD Rupert Ovalle MD
[2018-04-05] MEDS: ZOSYN 3.375 GM in NS 50 ML IV SCH ×2 (00:08→05:23)
[2018-04-05] MEDS: DUONEB (A & A) INH SCH ×4 (03:51→22:34)
[2018-04-05] MEDS: PROTONIX PO SCH (06:15)
--- NOTE | 2018-04-05 06:52 | Diag Imaging Result Doc PS360 ---
CHEST-PORTABLE - 04/05/2018 INDICATION: abnormal exam COMPARISON: 04/03/2018 FINDINGS: There is little change in the diffuse bilateral mixed infiltrates or fibrosis with peripheral predominance. Heart size is borderline. No pneumothorax or pleural effusion. Lung volumes are very low. IMPRESSION: No change from prior. Electronically signed by Willy Krishnamurthy 04/05/2018 6:49 AM
[2018-04-05 07:06] LABS: BASO# 0.01 X1000 (0.0-0.2); BASO% 0.3 % (0.0-0.8); EOS# 0.26 X1000 (0.0-0.7); EOS% 8.8 % (0.0-10.0); HEMATOCRIT 27.5 % (37.0-47.0); HEMOGLOBIN 8.6 g/dL (12.0-16.0); LYMPH# 0.39 X1000 (1.2-3.4); LYMPH% 13.1 % (20.5-51.1); MCH 28.3 PG (27-31); MCHC 31.3 g/dL (33-37); MCV 90.5 FL (81-99); MONO# 0.21 X1000 (0.11-0.59); MONO% 7.1 % (1.7-9.3); MPV 9.6 FL (7.4-10.4); NEUT% 70.7 % (42.2-75.2); PLT 200 X1000 (130-400); RBC 3.04 XMIL (4.2-5.4); RDW 15.6 % (11.5-14.5); WBC 2.97 X1000 (4.8-10.8)
[2018-04-05 07:33] LABS: AGAP 10; ALBUMIN 2.4 g/dL (3.5-5.0); ALKALINE PHOSPHATASE 110 U/L (32-104); BUN 17 mg/dL (8-22); CALCIUM 8.2 mg/dL (8.8-10.2); CHLORIDE 102 mmol/L (98-107); COSMO 276; CREATININE 0.8 mg/dL (0.5-0.9); ESTIMATED GFR > 60; GLUCOSE 104 mg/dL (70-104); GOT 47 U/L (10-30); GPT 34 U/L (10-36); MAGNESIUM 1.8 mg/dL (1.5-2.7); PHOSPHORUS 2.3 mg/dL (2.7-4.5); POTASSIUM 3.5 mmol/L (3.5-5.1); SODIUM 137 mmol/L (136-145); TCO2 25 mmol/L (25-35); TOTAL PROTEIN 4.8 g/dL (6.3-8.3)
[2018-04-05] MEDS: CORTEF PO SCH ×2 (08:10→22:06)
[2018-04-05] MEDS: LEVAQUIN 500 MG/D5W 500 MG/100 ML IVPB IV SCH (08:10)
[2018-04-05] MEDS: COZAAR PO SCH (08:10)
[2018-04-05] MEDS: TYLENOL PO PRN (08:10)
--- NOTE | 2018-04-05 12:47 | PROGRESS NOTE ---
DATE: 04/05/2018 SUBJECTIVE: Ms. Logan has a history of acute respiratory failure secondary to aspiration pneumonia. She has been on IV antibiotics for over 2 weeks. Chest x-rays show bilateral fibrotic changes. No effusions are noted. She denies any fever, chills, or unexplained cough. She is maintaining O2 saturations of 95% to 98% on 3 L of O2. She has a history of hypertension. Her blood pressure has been a little bit low at times. Systolic blood pressures have ranged from 100 to 106, whereas her diastolic blood pressures have been in the 30s and 40s. She denies any chest pain, palpitations, or anginal equivalents. She is tolerating a pureed diet with thin liquids without coughing, choking, or nausea or vomiting. She is still very weak and is making slow progress with physical therapy. OBJECTIVE: Vital signs: Temperature 97.5 degrees, pulse 78, respiratory rate 20, BP 107/36. Cardiovascular: Regular rate and rhythm. Lungs: Crackles in the bases bilaterally. Abdomen: Soft, nontender, with active bowel sounds. ASSESSMENT AND PLAN: 1. Acute respiratory failure secondary to aspiration pneumonia. She has completed a prolonged course of antibiotics. It appears that the pneumonia has cleared. I am going to stop the oral antibiotics. We will check a room air O2 saturation to see if she will need oxygen at home. I suspect that she will probably need nasal cannula oxygen at the time of discharge. 2. Hypertension. Her blood pressure is a little bit too low. I am going to stop the losartan and monitor her blood pressure. 3. General debility. We will continue daily physical therapy. At this point in time, I believe that she is too weak to safely return home. I believe that she would benefit from short-term rehabilitation. I have spoken to Jaye Glass at [facility], and they will have a private room available for Mrs. Logan on Tuesday. cc: Rupert Brower MD
[2018-04-05] MEDS: ATIVAN PO SCH (22:06)
[2018-04-05] MEDS: LOVENOX SUBQ SCH (22:07)
--- NOTE | 2018-04-05 22:08 | PULMONOLOGY PROGRESS NOTE ---
DATE: 04/05/2018 SUBJECTIVE: The patient is awake, alert and sitting in a chair. Her voice continues to improve. She is tolerating p.o. intake. OBJECTIVE: Vital Signs: The patient has been afebrile for the last 24 hours. Blood pressure 120/42, heart rate 75, oxygen saturation 98% on 4 L per nasal cannula. HEENT: Pupils are equal and reactive. Oropharynx is clear. Neck: Supple. Chest: Reveals crackles in the lung bases. Cardiac: S1 and S2. Abdomen: Soft without hepatosplenomegaly. Extremities: Without edema. LABORATORY DATA: Chest x-ray reveals patchy bilateral infiltrates without significant change. IMPRESSION: An 82-year-old with: 1. Head and neck cancer. 2. Aspiration pneumonia. 3. Acute hypoxemic respiratory failure. 4. Dysphonia which is resolving. 5. Dysphagia which has resolved. 6. Generalized weakness. DISCUSSION: Overall the patient continues to slowly improve. She is being scheduled for a rehabilitation stay. RECOMMENDATIONS: 1. Agree with current treatment regimen. 2. Continue oxygen and wean as tolerated. 3. Anticipate discharge to a rehabilitation facility toward the end of the week. cc: MD Rupert Ovlale MD
[2018-04-06] MEDS: DUONEB (A & A) INH SCH ×4 (04:24→21:05)
[2018-04-06] MEDS: PROTONIX PO SCH (06:46)
[2018-04-06] MEDS: CORTEF PO SCH ×2 (09:49→21:10)
--- NOTE | 2018-04-06 16:41 | PROGRESS NOTE ---
DATE: 04/06/2018 SUBJECTIVE: Ms. Logan was admitted to [facility] with acute respiratory failure with hypoxia secondary to acute exacerbation of underlying bronchiectasis with aspiration pneumonia. She has been maintaining O2 saturations in the mid 90s on 3 L of O2. Her chest x-ray remains largely unchanged. She is now off IV antibiotics. We checked a room air O2 saturation today and it was 85%. We resumed the O2 and her O2 saturations jumped back to the range of 95% to 97%. Her voice is stronger. She is tolerating a pureed diet. OBJECTIVE: Vital Signs: She is afebrile, pulse 73, respiratory rate 16, blood pressure 120/46. Cardiovascular: Regular rate and rhythm. Lungs: Faint crackles in the bases bilaterally. Abdomen: Soft, nontender, with active bowel sounds. ASSESSMENT AND PLAN: 1. Chronic respiratory failure secondary to underlying bronchiectasis with aspiration pneumonia. The aspiration pneumonia has resolved, and she has completed a 15 day-course of intravenous antibiotics. We checked a room air O2 saturation today, which was 85% when the patient was in chronic stable condition within 2 days of discharge. The O2 saturation was obtained at rest. We will continue supplemental O2, as well as nebulizer treatments. 2. General debility. We do not feel that she is capable of going home safely. We have made arrangements for her to be transferred to [facility] in order to undergo short term rehabilitation. At this point, she is not strong enough to have additional chemotherapy or radiation. 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 cc: Rupert Brower MD
--- NOTE | 2018-04-06 18:07 | PULMONOLOGY PROGRESS NOTE ---
DATE: 04/06/2018 SUBJECTIVE: The patient is sitting in a chair. Her voice is stronger. She has some difficulty with hearing at baseline. She is without specific complaints. OBJECTIVE: Vital Signs: The patient has been afebrile for the last 24 hours. Blood pressure 120/46, heart rate 73, respiratory rate 16, oxygen saturation 95% on nasal cannula, 85% on room air. HEENT: Pupils are equal and reactive. Oropharynx is clear. Neck: Supple. Chest: Reveals faint crackles predominantly in the lung bases. Cardiac: S1, S2. Abdomen: Soft and without hepatosplenomegaly. Extremities: Without edema. IMPRESSION: An 82-year-old with: 1. Aspiration pneumonia. 2. Acute hypoxemic respiratory failure. 3. Head and neck cancer, undergoing active treatment. 4. Dysphonia. 5. Generalized debilitation. RECOMMENDATIONS: 1. Continue oxygen and wean as tolerated. 2. Encourage p.o. intake. 3. Continue physical therapy. 4. Anticipate discharge to a rehabilitation facility. cc: MD Rupert Ovalle MD
[2018-04-06] MEDS: ATIVAN PO SCH (21:10)
[2018-04-06] MEDS: LOVENOX SUBQ SCH (21:11)
[2018-04-07] MEDS: DUONEB (A & A) INH SCH ×2 (03:36→10:27)
[2018-04-07] MEDS: PROTONIX PO SCH (06:32)
[2018-04-07 07:45] VITALS: BP 108/68
[2018-04-07] MEDS: CORTEF PO SCH (09:01)
--- NOTE | 2018-04-07 12:47 | DISCHARGE SUMMARY ---
ADMISSION DATE: 03/12/2018 DISCHARGE DATE: 04/07/2018 DISCHARGE DIAGNOSES: 1. Acute respiratory failure with hypoxia secondary to acute exacerbation of underlying bronchiectasis with aspiration pneumonia. 2. 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 3. Essential hypertension. 4. Gastroesophageal reflux disease. 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 6. Mild protein calorie malnutrition. 7. Adrenal insufficiency. DISCHARGE INSTRUCTIONS: 1. The patient will be transferred via ambulance to [facility] to undergo short-term rehab. 2. Activity as tolerated. 3. Pureed diet with thin liquids. MEDICATIONS: 1. DuoNeb nebulize q.6 hours. 2. Cortef 10 mg b.i.d. 3. Ativan 1 mg at bedtime. 4. Pantoprazole 40 mg daily. PHYSICAL EXAMINATION: General: This is an elderly, frail, 82-year-old lady in no apparent distress. Vital signs: She is afebrile. Vital signs are stable. Cardiovascular: Regular rate and rhythm. Lungs: Clear. Abdomen: Soft, nontender, with active bowel sounds. HOSPITAL COURSE: Ms. Jyoti Logan was admitted to [facility] with lethargy and generalized malaise. Her serum sodium was noted to be 121. She was euvolemic. 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 We placed her on a fluid restricted diet and treated her with Samsca. Serum sodium normalized and remained within normal limits during her hospitalization. As an outpatient, she was noted to have low cortisol levels. We performed a Cortrosyn stimulation test, which was abnormal. We placed her on Solu-Cortef 10 mg b.i.d. Blood pressure has remained and normal and cortisol levels have remained within normal limits. As stated earlier, she has a longstanding history of bronchiectasis. She had increasing shortness of breath, increasing work of breathing, hypoxia and a right lower lobe infiltrate. We felt that she had acute respiratory failure with hypoxia due to acute exacerbation of bronchiectasis and aspiration pneumonia. The patient was placed on supplemental O2. Initially she continued to have increasing oxygen requirements and was on 100% non-rebreather. We used BiPAP at night. She was started on broad- spectrum antibiotics including Levaquin and Zosyn, as well as DuoNeb nebulizer treatments. Dr. Cool was consulted to see the patient. Over the course of the next several weeks, she made a slow but steady progress. We were gradually able to wean her down to 5 L of O2 per nasal cannula. She was maintaining O2 saturations of 95 to 97 percent. Chest x-ray showed fibrotic changes and resolution of the pneumonia. She completed a 15 day course of IV antibiotics including Levaquin and Zosyn. We checked a room air O2 saturation on 04/06/2018 and it was 85% on room air at rest. We felt that she would benefit from continuous home oxygen and we resumed O2 at 5 L per nasal cannula continuously. She was having coughing and choking with meals. Initial modified barium swallow was equivocal. She had protein malnutrition. We placed an NG tube and initiated tube feedings. Nutritional parameters improved greatly once her voice became stronger and she was swallowing without difficulty. We repeated the modified barium swallow. She had no aspiration of pureed consistency or thin liquids. Her NG tube was stopped. She was placed on a pureed diet with thin liquids which she tolerated without difficulty. We will continue speech therapy and will re-evaluate her swallowing and hope to advance her diet as tolerated. 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 She was unable to tolerate chemotherapy. We feel that she is still too debilitated to undergo further treatment at this time. Treatment including chemotherapy and radiation will be delayed at this time in order for her to regain strength with short-term rehab. It is our hope that she will regain enough strength that we can reassess her for additional treatments at a later time. cc: Rupert Brower MD
== END 2018-04-07 14:50 | DRG 643 ==
LOC: SUPCPDRO → ED 13:12 → EDIPHOLD 18:15 → 3N 03-13 17:09
PROVIDERS: ADMIT Internal Medicine; ATTEND Internal Medicine
CPT/HCPCS: 36430; 71010; 71020; 71045; 71046; 71275; 73522; 74000; 74018; 74178; 74230; 80048; 80053; 82040; 82533; 82550; 82805; 83735; 83880; 83930; 83935; 84100; 84134; 84300; 84484; 85014; 85018; 85025; 85379; 86850; 86900; 86901; 86920; 87324; 87449; 92526; 92610; 92611; 93005; 93010; 94640; 94660; 94761; 94762; 94799; 96365; 96372; 96375; 97110; 97162; 97530; 99285; A9270; J0696; J0834; J1650; J1940; J1956; J2543; J2550; J3480; J7030; J7070; P9016; Q9967

== ENCOUNTER 2018-04-10 10:42 | Inpatient (IN) ==
[2018-04-10] MEDS ORDERED: LASIX IV ONE (13:09)
[2018-04-10] MEDS ORDERED: TYLENOL PO PRN (13:34)
--- NOTE | 2018-04-10 13:55 | Diag Imaging Result Doc PS360 ---
EXAM: CHEST-PORTABLE HISTORY: acute on chronic respiratory failure TECHNIQUE: Portable chest COMPARISON: 04/05/2018 FINDINGS: Poor inspiratory effort. There are increased interstitial markings throughout both lungs. These are more pronounced in the upper right lung than they were on the prior study. There are small pleural effusions as well as basilar atelectasis. No cardiomegaly. IMPRESSION: New infiltrates in the upper right lung. Electronically signed by Yonatan Franco 04/10/2018 1:52 PM
[2018-04-10] MEDS: ROCEPHIN 1 GM in NS 50 ML IV SCH (14:26)
[2018-04-10] MEDS: LOVENOX SUBQ SCH (14:26)
[2018-04-10 14:40] LABS: BASO# 0.01 X1000 (0.0-0.2); BASO% 0.2 % (0.0-0.8); EOS# 0.18 X1000 (0.0-0.7); HEMATOCRIT 27.8 % (37.0-47.0); HEMOGLOBIN 8.7 g/dL (12.0-16.0); IMM GRAN# 0.05 X1000 (0.0-0.04); IMM GRAN% 0.8 % (0.0-0.5); LYMPH# 0.84 X1000 (1.2-3.4); LYMPH% 14.2 % (20.5-51.1); MCH 28.2 PG (27-31); MCHC 31.3 g/dL (33-37); MCV 90.3 FL (81-99); MONO# 0.48 X1000 (0.11-0.59); MONO% 8.1 % (1.7-9.3); NEUT# 4.35 X1000 (1.4-6.5); NEUT% 73.7 % (42.2-75.2); PLT 294 X1000 (130-400); RBC 3.08 XMIL (4.2-5.4); RDW 15.6 % (11.5-14.5); WBC 5.91 X1000 (4.8-10.8)
[2018-04-10 15:06] LABS: AGAP 6; BUN 7 mg/dL (8-22); CHLORIDE 97 mmol/L (98-107); COSMO 263; CREATININE 0.5 mg/dL (0.5-0.9); ESTIMATED GFR > 60; GLUCOSE 113 mg/dL (70-104); POTASSIUM 4.6 mmol/L (3.5-5.1); SODIUM 132 mmol/L (136-145); TCO2 29 mmol/L (25-35)
[2018-04-10] MEDS: DUONEB (A & A) INH SCH ×2 (15:15→22:00)
[2018-04-10] MEDS: CLINDAMYCIN 900 MG/D5W 900 MG/50 ML IVPB IV SCH (17:19)
[2018-04-11] MEDS: CORTEF PO SCH ×3 (02:18→22:30)
[2018-04-11] MEDS: CLINDAMYCIN 900 MG/D5W 900 MG/50 ML IVPB IV SCH ×3 (02:18→18:09)
[2018-04-11] MEDS: ATIVAN PO SCH ×2 (02:18→23:26)
[2018-04-11] MEDS: DUONEB (A & A) INH SCH ×4 (03:40→21:20)
[2018-04-11] MEDS: PROTONIX PO SCH (06:12)
[2018-04-11] MEDS: CALTRATE 600 + D PO SCH (10:16)
[2018-04-11] MEDS: ASPIRIN PO SCH (10:16)
[2018-04-11] MEDS: VITAMIN D PO SCH (10:38)
--- NOTE | 2018-04-11 12:57 | PROGRESS NOTE ---
DATE: 04/11/2018 SUBJECTIVE: Mrs. Logan was admitted to [facility] with acute on chronic respiratory failure with hypoxia secondary to suspected aspiration pneumonia. Chest x-ray demonstrated a new infiltrate in the right upper lung yanes. She had had a previous swallowing study during her last admission, which demonstrated no evidence of aspiration to pureed foods or thin liquids. She did aspirate a mechanical soft diet. She has been on 100% nonrebreather throughout the night. Oxygen levels are ranging from 97% to 100% on 100% oxygen. She continues with a mild cough, productive of yellowish sputum. OBJECTIVE: Vital Signs: Temperature 99.2 degrees, pulse 70, respirations 16, BP 124/37. CV: Regular rate and rhythm. Lungs: Faint crackles in the bases bilaterally. Abdomen: Soft, nontender, with active bowel sounds. ASSESSMENT AND PLAN: 1. Acute on chronic respiratory failure with hypoxia secondary to aspiration pneumonia. We will continue DuoNeb nebulizer treatments and broad-spectrum antibiotics, including Rocephin and clindamycin. I will recheck a PA and lateral chest x-ray in the morning. We will try to wean her down off supplemental oxygen as feasible. Her condition is guarded. 2. Mild protein calorie malnutrition. Her most recent swallowing study demonstrated no aspiration of pureed foods or thin liquids. She apparently had an aspiration event, which precipitated readmission to the hospital. 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 Whether she is able to regain functional status to the point where she can resume therapy is still unclear. We will continue the pureed food with thin liquids for now. I will ask Speech Therapy to re-evaluate her swallowing. If there is little chance for her to regain her functional status, then I do not believe that placing a percutaneous endoscopic gastrostomy tube would be the right course of action. If there is a reasonable chance that she can regain her functional status in order to resume therapy, I believe that we would recommend placing a percutaneous endoscopic gastrostomy tube in order to reduce the risk of further aspiration. cc: Rupert Brower MD
--- NOTE | 2018-04-11 14:00 | Diag Imaging Result Doc PS360 ---
EXAM: BA SWALLOW W/VIDEO SPEECH THER INDICATION: aspiration TECHNIQUE: COMPARISON: 03/14/2018 FINDINGS: On the initial swallowing attempt with thin liquid contrast, there was aspiration with an immediate cough reflex. On the second attempt there was no aspiration and normal bolus propagation. With pudding consistency barium there was no aspiration or penetration. However, the swallowing reflex was delayed and there was early contrast spillage into the upper esophagus. IMPRESSION: 1.Aspiration on the first swallowing attempt with thin liquid barium. 2.Delayed swallowing reflex and early spillage of pudding consistency barium. 3.Please see speech pathology report for full details. Electronically signed by Angel Díaz 04/11/2018 1:58 PM
[2018-04-11] MEDS: ROCEPHIN 1 GM in NS 50 ML IV SCH (14:19)
[2018-04-11] MEDS: LOVENOX SUBQ SCH (14:20)
[2018-04-11 15:38] LABS: URINE SOURCE CATH
[2018-04-11 15:43] LABS: BILIRUBIN URINE NEGATIVE (NEGATIVE); BLOOD URINE NEGATIVE (NEGATIVE); COLOR YELLOW; GLUCOSE URINE NEGATIVE (NEGATIVE); KETONE URINE NEGATIVE (NEGATIVE); LEUKOCYTES URINE NEGATIVE (NEGATIVE); NITRITE URINE NEGATIVE (NEGATIVE); PH URINE 6.5; PROTEIN URINE NEGATIVE (NEGATIVE); SP GRAVITY URINE 1.004; TURBIDITY URINE CLEAR (CLEAR); UR EPITHELIAL CELLS <10 /HPF (<10); URINE BACTERIA NEGATIVE /HPF; URINE RBC <10 /HPF (<10); URINE WBC <10 /HPF (<10); UROBILINOGEN URINE NORMAL (NORMAL)
[2018-04-12] MEDS: CLINDAMYCIN 900 MG/D5W 900 MG/50 ML IVPB IV SCH ×3 (02:34→18:49)
[2018-04-12] MEDS: DUONEB (A & A) INH SCH ×4 (03:40→21:12)
[2018-04-12] MEDS: PROTONIX PO SCH (06:29)
[2018-04-12 07:06] LABS: BASO# 0.01 X1000 (0.0-0.2); BASO% 0.3 % (0.0-0.8); EOS# 0.13 X1000 (0.0-0.7); EOS% 3.6 % (0.0-10.0); HEMATOCRIT 24.7 % (37.0-47.0); HEMOGLOBIN 7.8 g/dL (12.0-16.0); IMM GRAN# 0.02 X1000 (0.0-0.04); IMM GRAN% 0.5 % (0.0-0.5); LYMPH# 0.71 X1000 (1.2-3.4); LYMPH% 19.4 % (20.5-51.1); MCH 28.5 PG (27-31); MCHC 31.6 g/dL (33-37); MCV 90.1 FL (81-99); MONO# 0.31 X1000 (0.11-0.59); MONO% 8.5 % (1.7-9.3); MPV 11.3 FL (7.4-10.4); NEUT# 2.48 X1000 (1.4-6.5); NEUT% 67.7 % (42.2-75.2); PLT 270 X1000 (130-400); RBC 2.74 XMIL (4.2-5.4); RDW 15.4 % (11.5-14.5); WBC 3.66 X1000 (4.8-10.8)
[2018-04-12 07:19] LABS: AGAP 9; BUN 10 mg/dL (8-22); CHLORIDE 97 mmol/L (98-107); COSMO 265; CREATININE 0.6 mg/dL (0.5-0.9); ESTIMATED GFR > 60; GLUCOSE 89 mg/dL (70-104); POTASSIUM 4.3 mmol/L (3.5-5.1); SODIUM 133 mmol/L (136-145); TCO2 27 mmol/L (25-35)
[2018-04-12 07:45] LABS: FERRITIN 545 ng/mL (13-150)
--- NOTE | 2018-04-12 09:22 | Diag Imaging Result Doc PS360 ---
EXAM: CHEST-PORTABLE HISTORY: aspiration neumonia TECHNIQUE: Chest single view COMPARISON: 04/10/2018 FINDINGS: Poor inspiratory effort. There are bilateral infiltrates. There are tiny pleural effusions. No cardiomegaly. IMPRESSION: No interval improvement. Electronically signed by Yonatan Franco 04/12/2018 9:20 AM
[2018-04-12] MEDS: ASPIRIN PO SCH (10:39)
[2018-04-12] MEDS: CORTEF PO SCH ×2 (10:40→20:03)
[2018-04-12] MEDS: CALTRATE 600 + D PO SCH (10:40)
[2018-04-12] MEDS: VITAMIN D PO SCH (10:41)
[2018-04-12 11:46] LABS: HEMATOCRIT 25.8 % (37.0-47.0); HEMOGLOBIN 8.1 g/dL (12.0-16.0); MCHC 31.4 g/dL (33-37); MCV 89.3 FL (81-99); MPV 10.4 FL (7.4-10.4); RBC 2.89 XMIL (4.2-5.4); RDW 15.3 % (11.5-14.5); WBC 3.91 X1000 (4.8-10.8)
[2018-04-12 11:51] LABS: AGAP 8; BUN 10 mg/dL (8-22); CALCIUM 8.9 mg/dL (8.8-10.2); CHLORIDE 95 mmol/L (98-107); COSMO 259; CREATININE 0.5 mg/dL (0.5-0.9); ESTIMATED GFR > 60; GLUCOSE 119 mg/dL (70-104); POTASSIUM 4.2 mmol/L (3.5-5.1); SODIUM 129 mmol/L (136-145); TCO2 26 mmol/L (25-35)
--- NOTE | 2018-04-12 14:21 | HEMO/ONC CONSULTATION ---
DATE: 04/12/2018 REQUESTING PHYSICIAN: Consultation requested by Dr. Brower. REASON FOR CONSULTATION: Consultation is for head and neck cancer, patient known. HISTORY OF PRESENT ILLNESS: Ms. Logan is an 82-year-old female who is known to us as we have previously been treating her for head and neck cancer. Ms. Logan was last seen in our office on 03/07/2018. She was receiving weekly carboplatin and Taxol, and received a total of 3 cycles of chemotherapy which was concurrent with her radiation therapy. After her last treatment, she developed a persistent nonproductive cough with yellowish sputum, pleuritic chest pain, and increasing shortness of breath. She was actually admitted to the hospital back on 03/12/2018. 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 She also was found to have pneumonia. She had a rather extensive hospital stay and was recently, on 04/07/2018, discharged to rehab. She was then brought back on 04/10/2018 with acute on chronic respiratory failure with hypoxia which was believed to be secondary to suspected aspiration pneumonia. The patient is now in the hospital receiving treatment for aspiration pneumonia. Patient poorly tolerated treatment for head and neck cancer, and currently there are no plans for any further chemotherapy or radiation for this patient. PAST MEDICAL HISTORY: 1. Hypertension. 2. Insomnia. 3. GERD. 4. Aspiration pneumonia. 5. Vitamin D deficiency. 6. Head and neck cancer, left piriform sinus carcinoma, unresectable. Status post 3 cycles of carboplatin and Taxol with concurrent radiation, with last treatment being on 03/08/2018. PAST SURGICAL HISTORY: Hysterectomy back in 1964. SOCIAL HISTORY: The patient is a former smoker and smoked about 1/2 a pack of cigarettes for 20 years. She quit back in 1978. She also quit drinking alcohol back in 1996 after only drinking about 5 drinks per year. FAMILY HISTORY: The patient's mother at the age of 91. Father at the age of 76. She does have 1 child who has heart disease. She has a brother who had testicular cancer. REVIEW OF SYSTEMS: A 12 point review of systems has been completed and negative except as expressed in the HPI. PHYSICAL EXAMINATION: Vital Signs: Temperature 97.4, heart rate 65, respirations 18, blood pressure 121/36, O2 saturation is 99% on 5 L nasal cannula. General: This is an elderly, female who is lying in her hospital bed. Her niece is at bedside. She is in no acute distress. Head: Normocephalic, atraumatic. Eyes: Pupils equal, round, and reactive. Ears, Nose, Throat, Neck, and Mouth: Oral mucosa appears to be normal. Patient is hard of hearing and her gross auditory acuity is diminished. Cardiovascular: S1 and S2 heard with no murmurs, gallops, or rubs appreciated. Respiratory: She does have some crackles kind of throughout. No wheezing noted. Gastrointestinal: Abdomen is obese with normoactive bowel sounds. Nontender. Musculoskeletal: No bony abnormalities. Extremities: Some trace bilateral extremity edema. Neurologic: The patient is hard of hearing. She does not seem to have any focal motor deficits at this time. ASSESSMENT AND PLAN: 1. Head and neck cancer, unresectable. Patient poorly tolerated treatment and there are no plans for any further treatment at this time. We will see the patient once she has recovered and is out of the hospital and out of rehab, and follow up with her at that time. 2. Aspiration pneumonia. Continue treatment as per Dr. Brower. 3. Protein calorie malnutrition. She has undergone a swallowing study. Continue to puree food and work with speech therapy. Thank you for consulting us on Ms. Logan while she is here at [facility]. We will continue to follow along and adjust our treatment plan per her hospital course. Dictated by LISSETH Hernandez for Milagros Foster MD cc: MD Rupert Joseph MD I have seen and examined the patient and the above note reflects my history, physical and assessment and plan. Milagros Foster MD [facility]ITAL[facility]ernandez
[2018-04-12] MEDS: LOVENOX SUBQ SCH (18:49)
[2018-04-12] MEDS: ROCEPHIN 1 GM in NS 50 ML IV SCH (18:49)
[2018-04-12] MEDS: ATIVAN PO SCH (20:03)
[2018-04-13] MEDS: CLINDAMYCIN 900 MG/D5W 900 MG/50 ML IVPB IV SCH ×3 (03:15→17:54)
[2018-04-13] MEDS: DUONEB (A & A) INH SCH ×4 (03:25→21:52)
[2018-04-13] MEDS: PROTONIX PO SCH (06:17)
--- NOTE | 2018-04-13 08:48 | PROGRESS NOTE ---
DATE: 04/13/2018 SUBJECTIVE: Ms. Logan was admitted to [facility] with acute on chronic respiratory failure secondary to aspiration pneumonia. She is maintaining O2 saturations of 98-100% on 5 L of O2. I reduced her oxygen to 4 L this morning and her O2 saturation dropped to 89%. Blood cultures are negative. She continues with a minimal nonproductive cough. She is not having any choking episodes with a pureed diet but she will have coughing with thin liquids if she does not use a chin tuck. OBJECTIVE: Laboratory Data: Her chest x-ray demonstrated a new persistent right upper lobe infiltrate and a small amount of interstitial edema. Vital Signs: Temperature 98.1 degrees, pulse 65, respiratory rate 16, BP 109/32. CV: Regular rate and rhythm. Lungs: Faint crackles in the bases bilaterally. Abdomen: Soft, nontender, with active bowel sounds. No hepatosplenomegaly. No abdominal bruits. ASSESSMENT AND PLAN: 1. Acute on chronic respiratory failure with acute exacerbation of underlying bronchiectasis with aspiration pneumonia. She is down from 100% oxygen to 5 L. She desaturated down to 89% on 4 L very quickly. We will continue both clindamycin and Rocephin, and recheck a PA and lateral chest x-ray tomorrow. 2. Squamous cell carcinoma of the head and neck. At this point, her functional capacity is inadequate to pursue additional treatments at this time. She will be re-evaluated for treatment options following recovery from the pneumonia and further rehab. 3. Mild protein calorie malnutrition. She is tolerating a pureed diet. At this point in time, I am not really sure that she is going to be able to eat enough to maintain her strength. I am going to recheck albumin and prealbumin levels today. Based on those results, we may have to discuss the potential for tube feedings if she is not able to maintain her nutrition with diet and protein shakes. cc: Rupert Brower MD
[2018-04-13 08:50] LABS: FERRITIN 494 ng/mL (13-150)
--- NOTE | 2018-04-13 08:50 | PROGRESS NOTE ---
DATE: 04/12/2018 SUBJECTIVE: Ms. Logan was admitted to [facility] with acute on chronic respiratory failure with hypoxia secondary to acute exacerbation of bronchiectasis with aspiration pneumonia. She is maintaining O2 saturations of 98-100% on 5 L of O2. She continues with a mild intermittent cough. She denies any fever, chills, nausea, or vomiting. OBJECTIVE: Vital Signs: Temperature 98.2 degrees, pulse 62, respirations 18, BP 115/38. CV: Regular rate and rhythm. Lungs: Faint crackles in the bases bilaterally. Abdomen: Soft, nontender, with active bowel sounds. ASSESSMENT AND PLAN: Acute respiratory failure superimposed on chronic respiratory failure with hypoxia secondary to acute exacerbation of bronchiectasis with aspiration pneumonia. We will continue aggressive pulmonary toilet, nebulizer treatments, and broad-spectrum antibiotics. We will try to wean her down on oxygen as tolerated. Overall, her prognosis is guarded. Once she is stable for discharge, I believe that she would benefit from further short-term rehab. cc: Rupert Brower MD
[2018-04-13 09:15] LABS: HEMATOCRIT 24.7 % (37.0-47.0); HEMOGLOBIN 7.7 g/dL (12.0-16.0); MCH 28.1 PG (27-31); MCHC 31.2 g/dL (33-37); MCV 90.1 FL (81-99); MPV 10.4 FL (7.4-10.4); RBC 2.74 XMIL (4.2-5.4); RDW 15.6 % (11.5-14.5); WBC 3.56 X1000 (4.8-10.8)
[2018-04-13 09:24] LABS: AGAP 11; BUN 8 mg/dL (8-22); CALCIUM 8.8 mg/dL (8.8-10.2); CHLORIDE 97 mmol/L (98-107); COSMO 265; CREATININE 0.6 mg/dL (0.5-0.9); ESTIMATED GFR > 60; GLUCOSE 99 mg/dL (70-104); POTASSIUM 4.2 mmol/L (3.5-5.1); SODIUM 133 mmol/L (136-145); TCO2 25 mmol/L (25-35)
[2018-04-13] MEDS: ASPIRIN PO SCH (10:05)
[2018-04-13] MEDS: CALTRATE 600 + D PO SCH (10:05)
[2018-04-13] MEDS: CORTEF PO SCH ×2 (10:06→21:21)
[2018-04-13] MEDS: VITAMIN D PO SCH (10:06)
[2018-04-13] MEDS: ROCEPHIN 1 GM in NS 50 ML IV SCH (17:49)
[2018-04-13] MEDS: LOVENOX SUBQ SCH (17:54)
[2018-04-13] MEDS: ATIVAN PO SCH (21:21)
[2018-04-14] MEDS: CLINDAMYCIN 900 MG/D5W 900 MG/50 ML IVPB IV SCH ×3 (03:27→17:52)
[2018-04-14] MEDS: DUONEB (A & A) INH SCH ×4 (03:30→22:05)
[2018-04-14] MEDS: PROTONIX PO SCH (06:15)
[2018-04-14] MEDS: VITAMIN D PO SCH (10:29)
[2018-04-14] MEDS: CORTEF PO SCH ×2 (10:29→21:36)
[2018-04-14] MEDS: CALTRATE 600 + D PO SCH (10:29)
[2018-04-14] MEDS: ASPIRIN PO SCH (10:30)
--- NOTE | 2018-04-14 13:56 | PROGRESS NOTE ---
DATE: 04/14/2018 SUBJECTIVE: Mrs. Logan has a history of acute on chronic respiratory failure with hypoxia secondary to aspiration pneumonia. She continues to require 5 L of O2 per nasal cannula. Her O2 saturations are ranging from 90 to 98 percent. She continues with a persistent cough. Her most recent chest x-ray showed persistent bilateral infiltrates. She appears to be tolerating a pureed diet but still has episodes of coughing and choking with clear liquids if she does not use the chin tuck. She is still very weak and has difficulty getting up out of a chair or ambulating to the bathroom. She is eating anywhere from 25 to 100 percent of her meals depending on the meal. Her pre-albumin level was low at 10. OBJECTIVE: Vital Signs: Temperature 98.6 degrees, pulse 75, respirations 14, BP 121/32. CV: Regular rate and rhythm. Lungs: Crackles in the bases bilaterally. Abdomen: Soft and nontender with active bowel sounds. Extremities: Without edema. ASSESSMENT AND PLAN: 1. Acute on chronic respiratory failure with hypoxia secondary to aspiration pneumonia. She is down from 100% oxygen to 5 L of O2, but we have not been able to wean her down further than 5 L of O2. We will continue O2 nebulizer treatments, and broad-spectrum antibiotics including Rocephin and clindamycin. Because of the underlying bronchiectasis, I am going to add Symbicort 160/4.5 two puffs b.i.d. 2. Mild protein calorie malnutrition. I am concerned that she is not going to be able to eat adequate calories with the pureed diet alone. Potentially, in order for her to resume therapy for her underlying squamous cell cancer of the head and neck I believe that she needs to be much stronger physically. I have talked to Mrs. Logan and her son about considering placement of a PEG tube for the purpose of tube feedings to maximize her nutritional status which would also increase her chances of getting stronger where she could undergo palliative therapy. She and her son will consider those recommendations. 3. General debility. We will continue physical therapy. She will need short-term rehab at discharge. 4. Chronic iron deficiency anemia. I will consult Dr. Moraes for consideration of an iron transfusion. Her serum iron level was low. I am going to check a reticulocyte count as well as a B12 and folic acid just to make sure there is no bone marrow suppression. cc: Rupert Brower MD
[2018-04-14] MEDS: ROCEPHIN 1 GM in NS 50 ML IV SCH (15:15)
[2018-04-14] MEDS: LOVENOX SUBQ SCH (15:15)
[2018-04-14] MEDS: ATIVAN PO SCH (21:36)
[2018-04-15] MEDS: CLINDAMYCIN 900 MG/D5W 900 MG/50 ML IVPB IV SCH ×3 (02:08→18:07)
[2018-04-15] MEDS: DUONEB (A & A) INH SCH ×4 (03:30→22:00)
[2018-04-15 09:25] LABS: HEMATOCRIT 27.6 % (37.0-47.0); HEMOGLOBIN 8.6 g/dL (12.0-16.0); MCH 28.7 PG (27-31); MCHC 31.2 g/dL (33-37); MPV 9.8 FL (7.4-10.4); RDW 16.3 % (11.5-14.5); WBC 2.69 X1000 (4.8-10.8)
[2018-04-15 09:43] LABS: AGAP 9; BUN 5 mg/dL (8-22); CALCIUM 9.6 mg/dL (8.8-10.2); CHLORIDE 100 mmol/L (98-107); COSMO 270; CREATININE 0.5 mg/dL (0.5-0.9); ESTIMATED GFR > 60; GLUCOSE 112 mg/dL (70-104); POTASSIUM 4.1 mmol/L (3.5-5.1); SODIUM 136 mmol/L (136-145); TCO2 27 mmol/L (25-35)
--- NOTE | 2018-04-15 10:46 | PROGRESS NOTE ---
DATE: 04/15/2018 SUBJECTIVE: Ms. Logan seems much more alert and interactive. She is tolerating a pureed diet without coughing. She reports that she is breathing more comfortably. She has a minimal cough. I reduced her O2 to 4 L per nasal cannula, and 30 minutes later, he O2 levels were still 97% on 4 L. Blood pressure remains stable. She denies any chest pain, palpitations or anginal equivalents. OBJECTIVE: Systolic blood pressures range from 123 to 137, whereas her diastolic blood pressures have been in the 40s and 50s. Temperature is 97.5, pulse 60, respirations 16, blood pressure 125/43. Cardiovascular: Regular rate and rhythm. Lungs: Faint crackles in the bases bilaterally. Abdomen: Soft, nontender. Active bowel sounds. ASSESSMENT AND PLAN: 1. Acute on chronic respiratory failure with hypoxia secondary to acute aspiration pneumonia. Clinically she is better. We will continue to wean down on oxygen as tolerated. We will continue DuoNeb nebulizer treatments and IV antibiotics including Rocephin and clindamycin. 2. Physical debility. We will continue physical therapy, increase activity and will resume short term rehab at discharge. 3. Mild protein calorie malnutrition. She is really not able to eat enough to sustain her strength. She wants to try to regain her strength so that she can resume therapy for her underlying squamous cell carcinoma of the head and neck. We have talked at length with Ms. Logan and her family about various options. The family understands that she has not been able to eat enough to sustain her weight. We talked about placement of an NG tube versus a PEG tube. They are amenable to proceeding with PEG tube placement to improve her overall nutritional status. I will consult Dr. Sylvester for PEG tube placement. cc: Rupert Brower MD
[2018-04-15] MEDS: CORTEF PO SCH ×2 (11:55→20:30)
[2018-04-15] MEDS: CALTRATE 600 + D PO SCH (11:55)
[2018-04-15] MEDS: ASPIRIN PO SCH (11:55)
[2018-04-15] MEDS: PROTONIX PO SCH (11:56)
[2018-04-15] MEDS: VITAMIN D PO SCH (11:56)
[2018-04-15] MEDS: ROCEPHIN 1 GM in NS 50 ML IV SCH (16:28)
[2018-04-15] MEDS: LOVENOX SUBQ SCH (16:29)
[2018-04-15] MEDS: ATIVAN PO SCH (21:00)
[2018-04-16] MEDS: CLINDAMYCIN 900 MG/D5W 900 MG/50 ML IVPB IV SCH ×3 (02:58→18:26)
[2018-04-16] MEDS: DUONEB (A & A) INH SCH ×4 (03:53→23:20)
[2018-04-16] MEDS: PROTONIX PO SCH (06:26)
[2018-04-16] MEDS: CALTRATE 600 + D PO SCH (10:00)
[2018-04-16] MEDS: CORTEF PO SCH ×2 (10:00→20:14)
[2018-04-16] MEDS: VITAMIN D PO SCH (10:01)
[2018-04-16] MEDS: ASPIRIN PO SCH (10:01)
--- NOTE | 2018-04-16 11:29 | PROGRESS NOTE ---
DATE: 04/16/2018 SUBJECTIVE: Ms. Logan was admitted to [facility] with acute on chronic respiratory failure with hypoxia secondary to aspiration pneumonia. Clinically, she looks much better this morning. She is sitting up in bed. Her color is good. She is very talkative. Her voice is strong. She has a minimal cough. OBJECTIVE: Vital Signs: O2 saturations have ranged from 97-100% on 4 L of O2. She is afebrile, pulse 71, respirations 20, BP 128/40. Cardiovascular: Regular rate and rhythm. Lungs: Clear. Abdomen: Soft, nontender, with active bowel sounds. ASSESSMENT AND PLAN: 1. Acute on chronic respiratory failure with hypoxia secondary to aspiration pneumonia. Clinically, she continues to improve. I reduced the oxygen to 3 L per nasal cannula and her repeat oxygen saturation was 97%. We will leave her at 3 L of oxygen per nasal cannula as long as her oxygen levels are consistently above 90. We will continue DuoNeb nebulizer treatments and broad-spectrum antibiotics. 2. Hypertension. Her blood pressure is stable. We will continue her current regimen of medications. 3. Mild protein calorie malnutrition. She really is not able to eat enough to sustain her weight and strength. We have consulted Dr. Sylvester for consideration of a percutaneous endoscopic gastrostomy tube placement. cc: Rupert Brower MD
[2018-04-16] MEDS: LOVENOX SUBQ SCH (14:30)
[2018-04-16] MEDS: ROCEPHIN 1 GM in NS 50 ML IV SCH (14:31)
--- NOTE | 2018-04-16 15:45 | GASTROENTEROLOGY PROGRESS NOTE ---
DATE: 04/16/2018 SUBJECTIVE: Patient is feeling better. alert. I have explained to her about PEG tube. She. Understands. OBJECTIVE: Vital Signs: O2 saturation 97-100% on 4 L. Afebrile. Pulse 71, respirations 20, blood pressure 128/40. Heart: Normal. Lungs: Clear. Abdomen: Soft, nontender. IMPRESSION AND PLAN: 1. Acute on chronic respiratory failure with hypoxia secondary to aspiration pneumonia. Getting better. 2. Hypertension. 3. Mild protein calorie malnutrition. 4. Possible temporary gastrostomy placed to improve her overall nutrition and swallowing ability and reduce aspiration problem. I have talked to her about it and she agreed, and we will set it up for tomorrow. cc: MD Rupert Del Rio MD MTDD
[2018-04-16] MEDS: ATIVAN PO SCH (20:14)
[2018-04-17] MEDS: CLINDAMYCIN 900 MG/D5W 900 MG/50 ML IVPB IV SCH ×3 (02:12→17:14)
[2018-04-17] MEDS: DUONEB (A & A) INH SCH ×4 (03:05→23:31)
[2018-04-17] MEDS: PROTONIX PO SCH (06:09)
[2018-04-17] MEDS: CALTRATE 600 + D PO SCH (09:25)
[2018-04-17] MEDS: CORTEF PO SCH (09:25)
[2018-04-17] MEDS: ASPIRIN PO SCH (09:25)
[2018-04-17] MEDS: NS 1,000 ML IV SCH ×2 (09:25→23:02)
[2018-04-17] MEDS: VITAMIN D PO SCH (09:26)
[2018-04-17] MEDS ORDERED: DIPRIVAN 1% ONE (10:23)
[2018-04-17] MEDS: BACTROBAN OINTMENT TOP SCH (13:12)
[2018-04-17] MEDS: LOVENOX SUBQ SCH (13:13)
[2018-04-17] MEDS: ROCEPHIN 1 GM in NS 50 ML IV SCH (13:13)
--- NOTE | 2018-04-17 13:17 | OPERATIVE NOTE ---
PROCEDURE DATE: 04/17/2018 REFERRING PHYSICIAN: Rupert Brower MD TITLE OF PROCEDURE: Esophagogastroduodenoscopy with percutaneous endoscopic gastrostomy tube placement 24-Belarusian by pull technique. PREOPERATIVE DIAGNOSES: 1. Aspiration risk. 2. Head and neck cancer. Receiving chemotherapy per Dr. Milagros Foster. 3. Malnutrition. POSTOPERATIVE DIAGNOSES: 1. Mild esophagitis in the distal and middle third esophagus likely reflux disease. 2. Z-line was at 42 cm. Normal stomach body and antrum. 3. Normal fundus, cardia, incisura on retroflexion. 4. Evidence of normal duodenum bulb and second portion of duodenum. ESTIMATED BLOOD LOSS: Minimal. COMPLICATIONS: None. ANESTHESIA: Monitored anesthesia care per the Anesthesia Service. SPECIMEN: None. DETAILS OF OPERATION: After informed consent from the patient and family, I explained the risks, benefits, indications, alternatives of the procedure, the patient was prepared for EGD with PEG tube placement. The risks of the procedure, including infection, bleeding, pain , trauma to the surrounding structures, perforation, , were explained to the patient, along with the risks of PEG tube dislodgement, PEG tube site infection, PEG tube dysfunction were explained among others. The patient and family acknowledged this and agreed to proceed with the procedure. The patient was brought to the OR. She was turned in the supine position. A bite block was placed in patient mouth. After adequate monitored anesthesia care, the upper scope was introduced was all the way to the second portion of the esophagus, showing evidence of erythema in the middle and distal third suggesting reflux esophagitis. The Z-line was at 42 cm. The stomach showed evidence of normal mucosa in body and antrum. Retroflexion revealed normal fundus, cardia, incisura. The duodenal bulb and second portion appeared normal. There was no evidence of any pyloric stenosis. The site was selected in the external abdominal wall by transillumination and successful ballottement of external finger pressure. The area on the external abdominal wall was cleaned and draped under sterile conditions. The site was injected with local lidocaine. The long needle was seen entering the stomach under direct endoscopic visualization. A 1-cm cut was made in the external abdominal wall. Trocar with cannula was inserted and the silk was threaded successfully. The 24-Belarusian PEG tube was placed successfully by pull technique. The internal bumper was visualized by repeat EGD. It was found in the anterior wall of the stomach. The external bumper was marked at 4 cm. The external site was cleaned and dressed with bacitracin ointment. The abdominal binder was placed. The patient tolerated the procedure well and will be monitored in OR in stable condition. I discussed the findings with the patient's family and all questions were answered. RECOMMENDATIONS: 1. Patient will be on aspiration precautions. 2. Patient will follow PEG tube recommendations. I will change the dressing every day with bacitracin ointment for the next 7 days. 3. We will start the PEG tube for feeding and nutrition and medications 4 hours from now. 4. The patient will have abdominal binder all the time. 5. We will switch all her medicines to PEG tube route per the pharmacy. 6. The above plans was discussed with the patient's family and all questions answered. Please call us with any further questions. If there is any problem with the PEG tube, please call us. cc: MD Rupert Tilley MD MTDD
[2018-04-17] MEDS: TYLENOL LIQUID PEG PRN ×2 (15:20→21:15)
--- NOTE | 2018-04-17 18:25 | PROGRESS NOTE ---
DATE: 04/17/2018 SUBJECTIVE: Ms. Logan was admitted to [facility] with [id number] respiratory failure with hypoxia, secondary to aspiration pneumonia. Clinically, she continues to improve. She is requiring less oxygen. She is maintaining oxygen saturations of 99 to 100% on 3 L of O2. She has essentially no cough. She is not having any coughing or choking with a pureed diet. A PEG tube was placed today successfully, without complication. Ms. Logan and her family agreed with me that she was not able to eat enough on her own to maintain her strength, and she wanted to maximize her chances of regaining strength to regain her strength and resume therapy for the underlying head and neck cancer. OBJECTIVE: Vital Signs: She is afebrile. Pulse 66. Respirations 17. Blood pressure 144/36. Cardiovascular: Regular rate and rhythm. Lungs: Clear. Abdomen: Soft, nontender, with active bowel sounds. ASSESSMENT AND PLAN: 1. Chronic respiratory failure secondary to bronchiectasis, with aspiration pneumonia. Clinically, she continues to improve. We have been able to wean her down to a 3 L of oxygen per nasal cannula. We will continue DuoNeb nebulizer treatments. I will recheck a PA and lateral chest x-ray in the morning. We will try to transition her to oral medications. 2. Mild protein calorie malnutrition. We will begin Jevity 1.5 at 80 mL x5 feedings, with 30 mL flush before and after each feeding, and will titrate upward as indicated. cc: Rupert Brower MD
[2018-04-17] MEDS: CORTEF PEG SCH (21:15)
[2018-04-17] MEDS: ATIVAN PEG SCH (21:15)
[2018-04-18] MEDS: CLINDAMYCIN 900 MG/D5W 900 MG/50 ML IVPB IV SCH ×3 (01:38→17:40)
[2018-04-18] MEDS: DUONEB (A & A) INH SCH ×4 (03:28→22:30)
[2018-04-18] MEDS: TYLENOL LIQUID PEG PRN ×2 (04:00→17:57)
[2018-04-18] MEDS: NEXIUM PACKET PEG SCH (06:25)
[2018-04-18 07:46] LABS: AGAP 8; ALB/GLOB RATIO 0.9; ALBUMIN 2.6 g/dL (3.5-5.0); ALKALINE PHOSPHATASE 88 U/L (32-104); BUN 6 mg/dL (8-22); CALCIUM 8.6 mg/dL (8.8-10.2); CHLORIDE 102 mmol/L (98-107); COSMO 273; CREATININE 0.5 mg/dL (0.5-0.9); ESTIMATED GFR > 60; GLUCOSE 96 mg/dL (70-104); GOT 38 U/L (10-30); GPT 35 U/L (10-36); MAGNESIUM 1.6 mg/dL (1.5-2.7); PHOSPHORUS 4.3 mg/dL (2.7-4.5); POTASSIUM 4.4 mmol/L (3.5-5.1); SODIUM 138 mmol/L (136-145); TCO2 28 mmol/L (25-35); TOTAL BILIRUBIN < 0.15 mg/dL (0.20-1.00); TOTAL PROTEIN 5.4 g/dL (6.3-8.3)
[2018-04-18 07:55] LABS: HEMATOCRIT 28.5 % (37.0-47.0); HEMOGLOBIN 8.6 g/dL (12.0-16.0); MCH 27.7 PG (27-31); MCHC 30.2 g/dL (33-37); MCV 91.9 FL (81-99); MPV 10.1 FL (7.4-10.4); RBC 3.1 XMIL (4.2-5.4); RDW 16.3 % (11.5-14.5); WBC 3.26 X1000 (4.8-10.8)
[2018-04-18] MEDS: CORTEF PEG SCH ×2 (09:05→22:31)
[2018-04-18] MEDS: ASPIRIN PEG SCH (09:05)
[2018-04-18] MEDS: ULTRAM PO PRN ×2 (09:05→16:05)
[2018-04-18] MEDS: BACTROBAN OINTMENT TOP SCH (09:05)
[2018-04-18] MEDS: CALTRATE 600 + D PO SCH (09:05)
[2018-04-18] MEDS: CALTRATE 600 + D PEG SCH (09:06)
[2018-04-18] MEDS: VITAMIN D PO SCH (09:07)
[2018-04-18] MEDS: NS 1,000 ML IV SCH (10:00)
--- NOTE | 2018-04-18 11:55 | GASTROENTEROLOGY CONSULTATION ---
DATE: 04/15/2018 REASON FOR CONSULTATION: Possible temporary gastrostomy. HISTORY OF PRESENT ILLNESS: An 82-year-old lady with previously treated head and neck cancer had failed swallowing test with aspiration, came in with a aspiration-related bronchitis and pneumonia. I was asked to evaluate to put a temporary gastrostomy tube to improve her nutritional status, which in turn might improve ability to swallow better. PAST MEDICAL HISTORY: Hypertension, insomnia, aspiration pneumonia, head and neck cancer, piriform sinus, unresectable, status post chemo. PAST SURGICAL HISTORY: Hysterectomy. SOCIAL: Former smoker. Quit a long time ago. FAMILY HISTORY: Positive for heart disease. REVIEW OF SYSTEMS: Negative. PHYSICAL EXAMINATION: Vital Signs: Temperature 97.4 degrees, heart rate 65, respiration 18, blood pressure 121/36, O2 saturation 99% on 5 L. General: Elderly lady laying in bed, in no distress. Neck: Supple. Trachea midline. Heart: Normal. Lungs: Normal. Abdomen: Slightly obese. Normal bowel sounds. Neurological: Alert and oriented. IMPRESSION AND PLAN: 1. Head and neck cancer, status post radiation and status post chemotherapy. 2. Aspiration pneumonia with failed barium swallow. 3. Protein calorie malnutrition. 4. Gastrointestinal prophylaxis. I talked to the patient about putting a temporary PEG tube. We will set it up for Tuesday. cc: MD Rupert Del Rio MD
--- NOTE | 2018-04-18 13:44 | PROGRESS NOTE ---
DATE: 04/18/2018 SUBJECTIVE: Ms. Logan continues to improve clinically. She is maintaining O2 saturations of 97%- 100% on 2 L of O2 per nasal cannula. She is breathing comfortably. She has no chest pain, or productive cough. She is postoperative day #1 following placement of a PEG tube. She is tolerating tube feedings. OBJECTIVE: Temperature 98 degrees, pulse 70, respirations 18, BP 150/50. CV: Regular rate and rhythm. Lungs: Faint rales in the bases. Abdomen: Soft, nontender, with active bowel sounds. ASSESSMENT AND PLAN: 1. Acute on chronic respiratory failure with hypoxia secondary to aspiration pneumonia. She is clinically much better. She is breathing more comfortably. We have been able to wean her down to 2 L of O2 per nasal cannula. We will continue DuoNeb nebulizer treatments, and check a PA and lateral chest x-ray in the morning. I hope to be able to wean her to oral antibiotics as soon as possible. 2. Mild protein calorie malnutrition. We will continue to titrate upward on the bolus tube feedings until she reaches her goal. 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 cc: Rupert Brower MD
--- NOTE | 2018-04-18 14:09 | PROVIDER PROGRESS NOTE ---
Progress Note - - 04/18/2018 SUBJECTIVE: PEG tube placed yesterday without complications. There was mild esophagitis noted on EGD. Patient denies any N/V/F, CP, SOB, abdominal pain. Tolerating TFs. OBJECTIVE: Last Vital Signs Temp 98.0 F 04/18/18 08:00 Pulse 70 04/18/18 09:46 Resp 22 04/18/18 09:46 BP 150/50 04/18/18 08:00 Pulse Ox 97 04/18/18 09:46 Height 5 ft 2 in Weight 150 lb GEN: awake, alert, NAD HEENT: anicteric MMM NECK: no JVD, supple CV: RRR, no murmurs PULM: decreased BS at bases; no wheezing ABD: soft NT/ND, abdominal binder in place, PEG side c/d/i without induration or erythema EXT: no cce NEURO: nonfocal LABS: 04/18/18 04/18/18 06:56 06:56 WBC 3.26 L Hgb 8.6 L Plt Count 449 H Sodium 138 Potassium 4.4 Chloride 102 Total Bilirubin < 0.15 L AST 38 H ALT 35 Alkaline Phosphatase 88 Total Protein 5.4 L A/P: Mrs. Jyoti Logan is a 82 year old woman with unresectable head and neck cancer who was admitted with aspiration PNA from oropharyngeal dysphagia seen on [facility]. She underwent PEG placement on 04/[address] Bautista without complications. Mild esophagitis was noted on exam. PEG site looks good today and functioning well #Oropharyngeal dysphagia: continue PEG site care; TFs per nutrition; aspiration precautions #H&N ca: followed by Dr. Foster, apprec. recs #Aspiration PNA: on abx per primary team #Acute on chronic respiratory failure: on supp O2 and nebs per primary #Protein calorie malnutrition: on FTs #Esophagitis: on PPI; continue for 8-12 weeks, then stop Will sign off. Please call with questions
[2018-04-18] MEDS: LOVENOX SUBQ SCH (14:27)
[2018-04-18] MEDS: ROCEPHIN 1 GM in NS 50 ML IV SCH (14:30)
[2018-04-18] MEDS ORDERED: MORPHINE IV PRN (18:50)
[2018-04-18] MEDS: ATIVAN PEG SCH (22:31)
[2018-04-19] MEDS: NS 1,000 ML IV SCH ×3 (00:31→17:41)
[2018-04-19] MEDS: CLINDAMYCIN 900 MG/D5W 900 MG/50 ML IVPB IV SCH ×4 (02:31→17:41)
[2018-04-19] MEDS: DUONEB (A & A) INH SCH ×4 (03:24→22:32)
[2018-04-19] MEDS: ULTRAM PO PRN (03:47)
[2018-04-19] MEDS: ZOFRAN IV PRN ×3 (03:52→23:23)
[2018-04-19] MEDS: NEXIUM PACKET PEG SCH ×2 (06:15→06:40)
[2018-04-19] MEDS ORDERED: ULTRAM PO PRN (08:27)
[2018-04-19] MEDS ORDERED: MORPHINE IV PRN (08:27)
[2018-04-19] MEDS: BACTROBAN OINTMENT TOP SCH (08:41)
[2018-04-19] MEDS: VITAMIN D PO SCH (08:42)
[2018-04-19] MEDS: CORTEF PEG SCH ×2 (08:42→23:23)
[2018-04-19] MEDS: CALTRATE 600 + D PEG SCH (08:42)
[2018-04-19] MEDS: ASPIRIN PEG SCH (08:43)
[2018-04-19] MEDS: ROCEPHIN 1 GM in NS 50 ML IV SCH (13:31)
[2018-04-19] MEDS: LOVENOX SUBQ SCH (13:33)
--- NOTE | 2018-04-19 21:20 | PROGRESS NOTE ---
DATE: 04/19/2018 SUBJECTIVE: Ms. Logan was admitted to [facility] with acute respiratory failure with hypoxia secondary to aspiration pneumonia. She continues to improve. She is maintaining O2 saturations of 98% to 100% on 2 L of O2. She is tolerating tube feedings. PHYSICAL EXAMINATION: Vital signs: Temperature 97.4 degrees, pulse 69, respirations 14, BP 142/34. Cardiovascular: Regular rate and rhythm. Lungs: Clear. Abdomen: Soft, nontender, with active bowel sounds. ASSESSMENT AND PLAN: 1. Acute respiratory failure superimposed on chronic respiratory failure with hypoxia, secondary to aspiration pneumonia and acute exacerbation of bronchiectasis. We will continue Symbicort 80/4.5 two puffs b.i.d. as well as DuoNeb nebulizer treatments. We will hopefully transition her to oral antibiotics in the morning. 2. Physical debility. We will continue physical therapy and are awaiting short-term rehab placement. cc: Rupert Brower MD
[2018-04-19] MEDS: ZANTAC PO SCH (23:23)
[2018-04-19] MEDS: ATIVAN PEG SCH (23:57)
[2018-04-20] MEDS: CLINDAMYCIN 900 MG/D5W 900 MG/50 ML IVPB IV SCH ×3 (02:00→18:04)
[2018-04-20] MEDS: ZOFRAN IV PRN ×2 (03:30→15:00)
[2018-04-20] MEDS: DUONEB (A & A) INH SCH ×4 (03:40→21:15)
[2018-04-20] MEDS: ASPIRIN PEG SCH (08:56)
[2018-04-20] MEDS: CALTRATE 600 + D PEG SCH (08:56)
[2018-04-20] MEDS: CORTEF PEG SCH ×2 (08:56→20:21)
[2018-04-20] MEDS: BACTROBAN OINTMENT TOP SCH (08:56)
--- NOTE | 2018-04-20 08:56 | PROGRESS NOTE ---
DATE: 04/20/2018 SUBJECTIVE: Mrs. Logan reported that she had persistent nausea and vomiting throughout the night. They held her tube feedings last night. Her largest residual was 60 mL. She denied any abdominal pain. Her EGD demonstrated mild gastritis. She has been receiving both tube feedings as well as eating small amounts of a pureed diet. She is breathing comfortably. They had to increase her oxygen from 2 L to 3 L last night. Her oxygen levels are in the range of 97% to 100%. OBJECTIVE: Vital signs: Temperature 97.8 degrees, pulse 71, respirations 14, blood pressure 135/44. Cardiovascular: Regular rate and rhythm. Lungs: Faint crackles in the bases bilaterally. Abdomen: Soft, nontender, with active bowel sounds. ASSESSMENT AND PLAN: 1. Acute on chronic respiratory failure with hypoxia secondary to aspiration pneumonia. She did have a lot of nausea and vomiting last night. They had to increase her oxygen levels. She does not appear in any distress this morning. I am going to recheck a portable chest x-ray this morning. We will continue supplemental O2, DuoNeb nebulizer treatments, and IV antibiotics including clindamycin and Rocephin. 2. Mild protein calorie malnutrition. Because of the nausea and vomiting, I am going to reduce the tube feedings to 120 mL 5 times daily. I am going to add Reglan 5 mg b.i.d. 3. Physical debility. We will continue physical therapy. Because of the events of last night, I do not believe that she is stable to be discharged to [facility] today. If she response to the aforementioned medication changes, we will plan on sending her to [facility] in the morning. cc: Rupert Brower MD
[2018-04-20] MEDS: VITAMIN D PO SCH (08:57)
--- NOTE | 2018-04-20 10:02 | GASTROENTEROLOGY PROGRESS NOTE ---
DATE: 04/20/2018 SUBJECTIVE: Patient resting in bed. She is feeling better. She is tolerating tube feeds well. She denies any new complaints. OBJECTIVE: Vital signs: Temperature 97.8 degrees, pulse of 71, respiratory rate 14, blood pressure 135/44, saturating 100% nasal cannula. General: Moderately nourished, lying in bed, in no acute distress. HEENT: Mild pallor. No icterus. Neck: Supple. Abdomen: Abdomen is PEG tube in place. External bumper at 4 cm. No erythema or drainage noted around the PEG tube site. Soft, nontender. Extremities: No cyanosis, clubbing. Neurologic: She is alert, awake, oriented. LAB: Her hemoglobin and hematocrit is 8.7 and 28.5 from 04/18/2018 and her AST was slightly high at 38 on 04/18/2018.. We will just follow. Body weight of 150 pounds. IMPRESSION AND PLAN: 1. Protein calorie malnutrition. She is on tube feeds. This is managed by the nutrition team. 2. Acute on chronic respiratory failure hypoxia secondary to aspiration pneumonia. She is on nebulizer treatment and IV antibiotics including clindamycin and Rocephin. 3. She is tolerating pureed diet by mouth. 4. Head and neck cancer. She is being treated by Dr. Milagros Foster. 5. Deep venous thrombosis prophylaxis with Lovenox 6. Esophagitis on esophagogastroduodenoscopy. She is on Nexium 40 mg per PEG daily. 7. Nausea and vomiting. She is on Reglan 5 mg b.i.d. B.i.d. Hold Reglan for side effects like tardive dyskinesia. 8. I discussed the PEG tube care with the patient. She will keep the site clean. She will call us with any questions or any problems. The above plans were discussed with the patient and all questions were answered. Please call us with any further questions. cc: MD Rupert Tilley MD MTDD
[2018-04-20 11:17] LABS: HEMATOCRIT 27.8 % (37.0-47.0); HEMOGLOBIN 8.4 g/dL (12.0-16.0); MCH 27.8 PG (27-31); MCHC 30.2 g/dL (33-37); MCV 92.1 FL (81-99); MPV 9.9 FL (7.4-10.4); RBC 3.02 XMIL (4.2-5.4); RDW 16.8 % (11.5-14.5); WBC 4.76 X1000 (4.8-10.8)
[2018-04-20] MEDS: REGLAN PO SCH ×2 (11:28→20:21)
[2018-04-20 11:53] LABS: AGAP 8; BUN 7 mg/dL (8-22); CALCIUM 8.3 mg/dL (8.8-10.2); CHLORIDE 98 mmol/L (98-107); COSMO 268; CREATININE 0.5 mg/dL (0.5-0.9); ESTIMATED GFR > 60; GLUCOSE 139 mg/dL (70-104); POTASSIUM 4.2 mmol/L (3.5-5.1); SODIUM 134 mmol/L (136-145); TCO2 28 mmol/L (25-35)
--- NOTE | 2018-04-20 14:22 | Diag Imaging Result Doc PS360 ---
EXAM: CHEST-PORTABLE HISTORY: aspiration pneumonia TECHNIQUE: Chest single view COMPARISON: 04/12/2018 FINDINGS: Poor inspiratory effort. There are bilateral infiltrates which remain. No cardiomegaly. There are likely tiny pleural effusions. The overall appearance is similar to the prior exam. IMPRESSION: Stable chest. Electronically signed by Yonatan Franco 04/20/2018 2:19 PM
[2018-04-20] MEDS: ROCEPHIN 1 GM in NS 50 ML IV SCH (15:00)
[2018-04-20] MEDS: NS 1,000 ML IV SCH (15:01)
[2018-04-20] MEDS: LOVENOX SUBQ SCH (15:01)
--- NOTE | 2018-04-20 17:16 | HISTORY AND PHYSICAL ---
HISTORY OF PRESENT ILLNESS: Mrs. Jyoti Logan is an 82-year-old lady who is well known to me. She has a history of chronic respiratory failure with hypoxia on home O2 at 5 L per nasal cannula, recurrent head and neck cancer, undergoing chemotherapy and adjuvant chemotherapy, essential hypertension, gastroesophageal reflux disease, overactive bladder, and bronchiectasis. She had been hospitalized at [facility] from March 12, 2018 until April 07, 2018. Apparently while at rehab she had nausea and vomiting and worsening choking spells. Her O2 saturations dropped to 70% on 5 L of O2 and she was transferred to the ER for further evaluation. She reported that she had increasing shortness of breath, increased work of breathing, and cough productive of yellowish sputum. Chest x-rays demonstrated a new right upper lobe infiltrate. A previous swallowing study had demonstrated the ability to swallow thin liquids and pureed foods without aspiration. PAST MEDICAL HISTORY: As above. PAST SURGICAL HISTORY: Hysterectomy with unilateral oophorectomy, bilateral tympanostomy tubes. ALLERGIES: Sulfa drugs. FAMILY HISTORY: Father had hypertension and of a ruptured abdominal aortic aneurysm at age 78. Her mother had hypertension and diabetes and at age 91. SOCIAL HISTORY: She is a . She is a former smoker. She does not consume alcoholic beverages. MEDICATIONS: DuoNeb nebulized q.6 hours, Cortef 10 mg b.i.d., Ativan 1 mg at bedtime, pantoprazole 40 mg daily. REVIEW OF SYSTEMS: She denies any recent weight gain or weight loss.HEENT: She wears glasses. She is hard of hearing. CV: No chest pain, palpitations, or anginal equivalent. Pulmonary: No shortness of breath, PND, orthopnea. GI: No reflux, dysphagia, melena, hematochezia, change in bowel habits, or rectal bleeding. Endocrine: No polyuria. No polydipsia. No cold or heat intolerance. Skin: No easy bruisability. : No leakage of urine with coughing or laughing. Neurologic: No migraines or seizures. Psychiatric: No history of depression. PHYSICAL EXAMINATION: GENERAL: This is an acutely ill-appearing, 82-year-old lady in mild distress secondary to shortness of breath. VITAL SIGNS: Temperature 99.5 degrees, pulse 89, respiratory rate 24, BP 134/63. HEENT: Fundi with arteriolar wall thickening. Pupils equal, round, reactive to light. Extraocular eye movements intact. TMs without bullae. NECK: Supple. No masses, JVD, or bruits. CV: Regular rate and rhythm. LUNGS: Bibasilar crackles with rhonchi in the upper lung yanes. ABDOMEN: Soft, nontender, with active bowel sounds. EXTREMITIES: Without edema. SKIN: No palpable purpura. BREASTS/AUTHOR AGENT/RECTAL: Exam is deferred. NEUROLOGIC: Nonfocal. LABORATORY: Various laboratory studies were obtained. A CBC demonstrated a white count of 5.9, hemoglobin 8.7, hematocrit 27.8, and a platelet count of 294,000. Electrolytes demonstrate the following: Sodium 132, potassium 4.6, chloride 97, BUN 7, creatinine 0.5, glucose 113. ASSESSMENT AND PLAN: 1. Acute on chronic respiratory failure with hypoxia secondary to acute exacerbation of underlying bronchiectasis with aspiration pneumonia. I will place her on 100% non-rebreather in order to try to maintain her O2 saturations greater than 90%. We will use BiPAP as necessary. We will begin DuoNeb nebulizer treatments and broad-spectrum antibiotics including Rocephin and clindamycin pending sputum and blood cultures. I am going to hold her n.p.o. and we will consult speech therapy for reevaluation of swallowing with a modified barium swallow. 2. Gastroesophageal reflux disease. We will elevate the head of the bed at 45 degrees and will continue pantoprazole 40 mg p.o. daily. Given her clinical presentation and comorbid conditions, I believe that admission to the hospital is indicated. I anticipate that she will be in the hospital for at least 2 midnights and I will therefore place her in inpatient status. We will begin Lovenox 30 mg subcutaneously daily for DVT prophylaxis. cc: Rupert Brower MD
--- NOTE | 2018-04-20 17:46 | HISTORY AND PHYSICAL ---
CHIEF COMPLAINT: Shortness of breath. HISTORY OF PRESENT ILLNESS: INCOMPLETE REPORT - DICTATION ENDS HERE. cc: Rupert Brower MD
[2018-04-20] MEDS: ATIVAN PEG SCH (20:21)
[2018-04-20] MEDS: ZANTAC PO SCH (20:21)
[2018-04-21] MEDS: NS 1,000 ML IV SCH ×3 (00:06→15:46)
[2018-04-21] MEDS: CLINDAMYCIN 900 MG/D5W 900 MG/50 ML IVPB IV SCH (01:16)
[2018-04-21] MEDS: DUONEB (A & A) INH SCH ×3 (03:10→15:09)
[2018-04-21] MEDS: NEXIUM PACKET PEG SCH (06:17)
[2018-04-21] MEDS: CALTRATE 600 + D PEG SCH (09:15)
[2018-04-21] MEDS: ASPIRIN PEG SCH (09:15)
[2018-04-21] MEDS: VITAMIN D PO SCH (09:15)
[2018-04-21] MEDS: CORTEF PEG SCH (09:15)
[2018-04-21] MEDS: REGLAN PO SCH (09:15)
[2018-04-21] MEDS: BACTROBAN OINTMENT TOP SCH (09:15)
--- NOTE | 2018-04-21 09:53 | DISCHARGE SUMMARY ---
ADMISSION DATE: 04/10/2018 DISCHARGE DATE: 04/21/2018 DISCHARGE DIAGNOSES: 1. Acute on chronic respiratory failure with hypoxia secondary to acute exacerbation of bronchiectasis and aspiration pneumonia. 2. Chronic respiratory failure with hypoxia on chronic home oxygen at 3 L per nasal cannula continuously. 3. Mild protein calorie malnutrition. 4. Gastroesophageal reflux disease. 5. Adrenal insufficiency on Cortef. 6. Recurrent head and neck cancer (squamous cell carcinoma). DISCHARGE INSTRUCTIONS: 1. The patient will be transferred via ambulance to [facility] in order to undergo short-term rehab. 2. Activity as tolerated. 3. Pureed diet with thin liquids. She may take thin liquids with a chin tuck. She is also receiving Jevity 1.5 180 mL 5 times daily with a 30 mL flush prior to and after each feeding. Please slowly advance to a maximum rate of 240 mL 5 times daily with 30 mL flush prior to and after feeding. DISCHARGE MEDICATIONS: 1. DuoNeb nebulize q.6 hours. 2. Tramadol 50 mg q.8 hours p.r.n. pain. 3. Augmentin liquid 250 mg per 5 mL with 5 mL per tube t.i.d. 4. Reglan 5 mg b.i.d. 5. Calcium 600+ D daily. 6. Pantoprazole 40 mg daily. 7. Aspirin 81 mg daily. 8. Hydrocortisone 10 mg b.i.d. 9. Lorazepam 1 mg at bedtime. DISCHARGE PHYSICAL EXAMINATION: This is an elderly, frail, 82-year-old lady in no apparent distress. She is afebrile. Vital signs are stable. Cardiovascular: Regular rate and rhythm. Lungs: Faint crackles in the bases bilaterally. Abdomen: Soft, nontender with active bowel sounds. HISTORY: Ms. Logan has a longstanding history of chronic respiratory failure with hypoxia secondary to recurrent pneumonia. She was transferred back to [facility] on 04/10/2018 from [facility] for an apparent aspiration event and desaturation with an O2 saturation of 72%. Her chest x-ray showed a new right upper lobe infiltrate. We felt that she had aspirated. Again, she was initially requiring 100% non-rebreather to maintain O2 saturations in the 90s. She was continued on nebulizer treatments as well as broad-spectrum antibiotics including Rocephin and clindamycin. Over the course of the next several days, she made good clinical progress. Her chest x-rays improved. Her breathing improved. The cough resolved. We were gradually able to wean her down to 3 L of O2 per nasal cannula that she was maintaining O2 saturations of 97% to 100 percent. She was transition to oral Augmentin, and will take Augmentin 250 mg per 5 mL, 5 mL per tube t.i.d. for an additional 10 days. Because of the recurrent and suspected aspiration event, we consulted speech therapy. They repeated a modified barium swallow. There was no aspiration of pureed food or thin liquids. She did have some coughing with thin liquids. We asked her to drink thin liquids with the chin tucked. When using the chin tuck method, there was no coughing with thin liquids. Unfortunately, Mrs. Logan was not eating very much. She averaged 25 to 50% of her meals. She was anxious to improve her nutritional status as she wants to regain her strength so that she can resume treatment for the recurrent head and neck cancer. We talked about various options including a PEG tube, and the family was agreeable to PEG tube placement. Dr. Bautista placed a PEG tube without complication. The dietitian was consulted, and she made recommendations in regards to tube feedings. We began Jevity 1.5 at 80 mL 5 times daily and increased Jevity Plus to 120 mL 5 times daily. When we reached Jevity at 180 mL 5 times daily she started having nausea and vomiting. Her residuals were very low. Her highest residual was 60 mL. We backed down the feedings to 120 mL 5 times daily and added low-dose Reglan. She has had no further nausea or vomiting. She will continue a pureed diet with thin liquids using the chin tucked. She is not able to eat enough to sustain her strength, but I want her to be able to the eat for quality of life. She is currently on Jevity Plus 1.5 120 mL 5 times daily. We will gradually increase back to 180 mg 5 times daily and ultimately increase to a goal rate of 240 mL 5 times daily. She has been receiving 30 mL flush prior to and after each feeding. She has a longstanding history of gastroesophageal reflux disease. EGD demonstrated mild gastritis. We will continue pantoprazole 40 mg daily. Having reached maximum hospital benefit, the patient was discharged in stable condition. cc: Rupert Brower MD
[2018-04-21] MEDS ORDERED: AUGMENTIN LIQUID PO SCH (13:00)
[2018-04-21 16:31] VITALS: BP 153/55
== END 2018-04-21 18:29 | DRG 177 ==
LOC: SUPCPDRO → ED 10:42 → EDIPHOLD 13:33 → 3N 04-11 02:11
PROVIDERS: ADMIT Internal Medicine; ATTEND Internal Medicine
CPT/HCPCS: 71010; 71045; 74230; 80048; 80053; 81001; 82607; 82728; 82746; 83540; 83735; 84100; 84134; 85025; 85027; 87040; 92611; 94640; 94761; 96365; 96366; 96367; 96372; 96375; 97110; 97162; 97530; 99285; A9270; J0696; J1650; J2270; J2405; J7030